=== PATIENT | female | born 1990 | race African-American/Black ===

== ENCOUNTER 2018-02-07 01:33 | Emergency (ER) | payer OTHER ==
[~2018-02-07 01:33] MED LIST: AMOX-362 PO; AMOX-559 PO; BENZ100C26 PO; CYCL10TA29 PO; DIA5 PO; IBUP800T37 PO; LOR5/325 PO; METR-1 PO; ONDA4TAB PO; OXYC-865 PO; TRAZ-163 PO
[2018-02-07] MEDS ORDERED: PREN-127 PO (01:45)
--- NOTE | 2018-02-07 01:46 | ER Report ---
History and Physical Time Seen By MD: 01:46 Hx. of Stated Complaint: PT'S PRIMARY COMPLAINT IS HEADACHE THAT STARTED YESTERDAY. PT 10 WEEKS . HPI/ROS CHIEF COMPLAINT: headache HISTORY OF PRESENT ILLNESS: This is a 28 year old female. She is having a headache, mainly in the forehead area and behind her eyes that goes to both temples. The headache started at noon and will not go away. She has taken Tylenol without relief. She has not taken anything else because she is 10 weeks . She has not been able to eat or drink alot today. Has nausea, but no vomiting. Has photophobia, but no other vision changes. No fever or chills. No shortness of breath or chest pain. No muscle aches. A little bit of congestion. No other illness. Has had some constipation, but no diarrhea. Normal urination without dysuria. No vaginal bleeding, leakage of fluid, or contractions/cramps. Does not have a history of headaches in the past. No swelling in the legs. No seizures. Allergies: Coded Allergies: No Known Drug Allergies (Unverified , 02/07/18) Home Meds Active Scripts Cyclobenzaprine Hcl (CYCLOBENZAPRINE HCL) 10 Mg Tablet, 10 MG PO Q8H Y for HEADACHE, #10 TAB 0 Refills Prov:SUKI GORDON MD 02/07/18 Hydrocodone Bit/Acetaminophen (HYDROCODON-ACETAMINOPHEN 5-325) 1 Each Tablet, 1 EACH PO Q4H Y for PAIN, #10 TAB 0 Refills Prov:SUKI GORDON MD 02/07/18 Ondansetron (ZOFRAN ODT) 4 Mg Tab.rapdis, 4 MG PO Q6H Y for NAUSEA/VOMITING, # 20 TAB.KAREY 0 Refills Prov:SUKI GORDON MD 02/07/18 Reported Medications Vits W-Ca,Fe,Fa(<1MG) ( VITAMINS) 1 Each Tablet, 1 EACH PO DAILY, TAB 02/07/18 Discontinued Reported Medications Trazodone Hcl (TRAZODONE HCL) 100 Mg Tablet, 200 MG PO QHS for Sleep, TAB 10/09/16 Discontinued Scripts Ondansetron (ZOFRAN ODT) 4 Mg Tab.rapdis, 4 MG PO Q6H Y for NAUSEA/VOMITING, # 20 TAB.KAREY 0 Refills Prov:SUKI GORDON MD 09/25/17 Hydrocodone Bit/Acetaminophen (HYDROCODON-ACETAMINOPHEN 5-325) 1 Each Tablet, 1 EACH PO Q4H Y for PAIN, #12 TAB 0 Refills Prov:SUKI GORDON MD 09/25/17 Hydrocodone Bit/Acetaminophen (HYDROCODON-ACETAMINOPHEN 5-325) 1 Each Tablet, 1 EACH PO Q4-6H for 3 Days, #8 TAB Prov:BRYNN HOLLINGSWORTH 05/15/17 Metronidazole (FLAGYL) 500 Mg Tablet, 500 MG PO TID for 7 Days, #21 TAB Prov:BRYNN HOLLINGSWORTH 05/15/17 Oxycodone Hcl/Acetaminophen (PERCOCET 5-325 MG TABLET) 1 Each Tablet, 1 EACH PO Q4-6H Y for mod, #18 TAB Prov:TAMIKO SINGH MD 10/09/16 Ibuprofen (IBUPROFEN) 800 Mg Tablet, 1 TAB PO Q6-8H Y for PAIN, #30 TAB Prov:TAMIKO SINGH MD 10/09/16 Past Medical/Surgical History History of in the past, history of left ankle surgery Reviewed Nurses Notes: Yes Hx Smoking: No Smoking Status: Never Smoker Exposure to Second Hand Smoke?: No Hx Substance Use Disorder: No Hx Alcohol Use: Yes (rare) Constitutional Vital Sign - Last 24 Hours 02/07/18 02/07/18 02/07/18 02/07/18 01:39 01:42 01:48 02:03 Temp 99.0 Pulse 11 110 106 Resp 16 B/P (MAP) 125/77 (93) 125/77 Pulse Ox 92 94 96 O2 Delivery Room Air 02/07/18 02/07/18 02/07/18 02/07/18 02:33 02:48 03:00 03:03 Pulse 112 108 103 B/P (MAP) 123/75 (91) Pulse Ox 94 94 93 02/07/18 02/07/18 02/07/18 02/07/18 03:08 03:23 03:30 03:38 Pulse 102 102 101 B/P (MAP) 111/71 (84) Pulse Ox 94 91 92 02/07/18 02/07/18 02/07/18 02/07/18 03:53 03:58 04:17 04:28 Pulse 102 97 B/P (MAP) 114/79 (91) Pulse Ox 91 92 92 02/07/18 02/07/18 02/07/18 02/07/18 04:30 04:43 04:48 05:00 Pulse 105 97 B/P (MAP) 115/64 (81) 105/71 (82) Pulse Ox 93 96 02/07/18 02/07/18 02/07/18 02/07/18 05:03 05:18 05:30 05:33 Pulse 100 102 98 B/P (MAP) 103/65 (78) Pulse Ox 91 91 91 02/07/18 02/07/18 02/07/18 02/07/18 05:48 06:00 06:03 06:30 Pulse 99 98 B/P (MAP) 100/63 (75) 96/56 (69) Pulse Ox 90 87 Physical Exam General Appearance: The patient is alert. Mild acute distress because of the headache. Non-toxic in appearance. Eyes: Pupils are equal, round. Reactive to light. No pallor, injection or icterus. Extraocular movements are intact. Photophobia. No nystagmus. ENT: Mucous membranes are moist. Normal oral mucosa. Posterior oropharynx is normal. Normal tympanic membranes and canals. Neck: Supple and non tender. Respiratory: Lungs are clear to auscultation. Cardiovascular: Regular rate and rhythm. No murmurs, gallops or rubs. Normal capillary refill. No edema. Gastrointestinal: Abdomen is soft and non tender. Nondistended. Normal active bowel sounds. Neurological: Alert and oriented x3. Cranial nerves with eye exam as noted above. No facial weakness, midline tongue, symmetric palate elevation, normal sensation. No focal neurologic deficits in the extremities. Skin: Warm and dry. Musculoskeletal: No tenderness in palpation of the back/spine. DIFFERENTIAL DIAGNOSIS: After history and physical exam, differential diagnosis was considered for headache including but not limited to subarachnoid hemorrhage , migraine headache, tension headache and infectious causes such as viral syndrome. Also consider related causes such as preeclampsia and HELLP. Medical Decision Making Data Points Result Diagram: 02/07/1821902/07/18 022 Laboratory Hematology Test 02/07/18 02:20 02/07/18 02:55 Red Blood Count 4.18 M/uL (4.17-5.56) Mean Corpuscular Volume 97.2 fL (80.0-96.0) Mean Corpuscular Hemoglobin 33.8 pg (26.0-33.0) Mean Corpuscular Hemoglobin Concent 34.7 g/dL (32.0-36.0) Red Cell Distribution Width 12.8 % (11.5-14.5) Mean Platelet Volume 9.1 fL (7.2-11.1) Neutrophils (%) (Auto) 71.3 % (39.4-72.5) Lymphocytes (%) (Auto) 20.6 % (17.6-49.6) Monocytes (%) (Auto) 7.2 % (4.1-12.4) Eosinophils (%) (Auto) 0.4 % (0.4-6.7) Basophils (%) (Auto) 0.5 % (0.3-1.4) Nucleated RBC Relative Count (auto) 0.0 /100WBC Neutrophils # (Auto) 6.9 K/uL (2.0-7.4) Lymphocytes # (Auto) 2.0 K/uL (1.3-3.6) Monocytes # (Auto) 0.7 K/uL (0.3-1.0) Eosinophils # (Auto) 0.0 K/uL (0.0-0.5) Basophils # (Auto) 0.0 K/uL (0.0-0.1) Nucleated RBC Absolute Count (auto) 0.00 K/uL Erythrocyte Sedimentation Rate 16 mm/HOUR (0-20) Sodium Level 133 mmol/L (137-145) Potassium Level 3.9 mmol/L (3.5-5.0) Chloride Level 101 mmol/L (98-107) Carbon Dioxide Level 21 mmol/L (22-31) Blood Urea Nitrogen 7 mg/dl (7-18) Creatinine 0.70 mg/dl (0.52-1.04) Glomerular Filtration Rate Calc > 60.0 Random Glucose 101 mg/dl (75-110) Calcium Level 9.9 mg/dl (8.4-10.2) Total Bilirubin 0.4 mg/dl (0.2-1.3) Aspartate Amino Transf (AST/SGOT) 22 U/L (0-35) Alanine Aminotransferase (ALT/SGPT) 31 U/L (0-56) Alkaline Phosphatase 87 U/L (0-126) Total Protein 7.5 gm/dl (6.3-8.2) Albumin 4.0 g/dl (3.5-5.0) Urine Color Yellow Urine Clarity Slightly-cloudy Urine pH 6.0 pH (4.8-9.5) Urine Specific Gary 1.019 Urine Protein Negative mg/dL (NEGATIVE) Urine Glucose (UA) Negative mg/dL (NEGATIVE) Urine Ketones Negative mg/dL (NEGATIVE) Urine Blood Negative (NEGATIVE) Urine Nitrite Negative (NEGATIVE) Urine Bilirubin Negative (NEGATIVE) Urine Urobilinogen 2.0 mg/dL (0.2-1.9) Urine Leukocyte Esterase Moderate (NEGATIVE) Urine RBC 1 /HPF (0-2/HPF) Urine WBC 1 /HPF (0-5/HPF) Urine Squamous Epithelial Cells Many /LPF (</=FEW) Urine Transitional Epithelial Cells Few /LPF (NONE-FEW) Urine Bacteria Negative /HPF (NONE-FEW) Urine Mucus None /HPF (NONE-FEW) Chemistry Test 02/07/18 02:20 02/07/18 02:55 White Blood Count 9.6 k/uL (4.5-11.0) Red Blood Count 4.18 M/uL (4.17-5.56) Hemoglobin 14.1 g/dL (12.0-16.0) Hematocrit 40.7 % (34.0-47.0) Mean Corpuscular Volume 97.2 fL (80.0-96.0) Mean Corpuscular Hemoglobin 33.8 pg (26.0-33.0) Mean Corpuscular Hemoglobin Concent 34.7 g/dL (32.0-36.0) Red Cell Distribution Width 12.8 % (11.5-14.5) Platelet Count 266 K/uL (150-450) Mean Platelet Volume 9.1 fL (7.2-11.1) Neutrophils (%) (Auto) 71.3 % (39.4-72.5) Lymphocytes (%) (Auto) 20.6 % (17.6-49.6) Monocytes (%) (Auto) 7.2 % (4.1-12.4) Eosinophils (%) (Auto) 0.4 % (0.4-6.7) Basophils (%) (Auto) 0.5 % (0.3-1.4) Nucleated RBC Relative Count (auto) 0.0 /100WBC Neutrophils # (Auto) 6.9 K/uL (2.0-7.4) Lymphocytes # (Auto) 2.0 K/uL (1.3-3.6) Monocytes # (Auto) 0.7 K/uL (0.3-1.0) Eosinophils # (Auto) 0.0 K/uL (0.0-0.5) Basophils # (Auto) 0.0 K/uL (0.0-0.1) Nucleated RBC Absolute Count (auto) 0.00 K/uL Erythrocyte Sedimentation Rate 16 mm/HOUR (0-20) Glomerular Filtration Rate Calc > 60.0 Calcium Level 9.9 mg/dl (8.4-10.2) Total Bilirubin 0.4 mg/dl (0.2-1.3) Aspartate Amino Transf (AST/SGOT) 22 U/L (0-35) Alanine Aminotransferase (ALT/SGPT) 31 U/L (0-56) Alkaline Phosphatase 87 U/L (0-126) Total Protein 7.5 gm/dl (6.3-8.2) Albumin 4.0 g/dl (3.5-5.0) Urine Color Yellow Urine Clarity Slightly-cloudy Urine pH 6.0 pH (4.8-9.5) Urine Specific Gary 1.019 Urine Protein Negative mg/dL (NEGATIVE) Urine Glucose (UA) Negative mg/dL (NEGATIVE) Urine Ketones Negative mg/dL (NEGATIVE) Urine Blood Negative (NEGATIVE) Urine Nitrite Negative (NEGATIVE) Urine Bilirubin Negative (NEGATIVE) Urine Urobilinogen 2.0 mg/dL (0.2-1.9) Urine Leukocyte Esterase Moderate (NEGATIVE) Urine RBC 1 /HPF (0-2/HPF) Urine WBC 1 /HPF (0-5/HPF) Urine Squamous Epithelial Cells Many /LPF (</=FEW) Urine Transitional Epithelial Cells Few /LPF (NONE-FEW) Urine Bacteria Negative /HPF (NONE-FEW) Urine Mucus None /HPF (NONE-FEW) Urinalysis Test 02/07/18 02:55 Urine Color Yellow Urine Clarity Slightly-cloudy Urine pH 6.0 pH (4.8-9.5) Urine Specific Gary 1.019 Urine Protein Negative mg/dL (NEGATIVE) Urine Glucose (UA) Negative mg/dL (NEGATIVE) Urine Ketones Negative mg/dL (NEGATIVE) Urine Blood Negative (NEGATIVE) Urine Nitrite Negative (NEGATIVE) Urine Bilirubin Negative (NEGATIVE) Urine Urobilinogen 2.0 mg/dL (0.2-1.9) Urine Leukocyte Esterase Moderate (NEGATIVE) Urine RBC 1 /HPF (0-2/HPF) Urine WBC 1 /HPF (0-5/HPF) Urine Squamous Epithelial Cells Many /LPF (</=FEW) Urine Transitional Epithelial Cells Few /LPF (NONE-FEW) Urine Bacteria Negative /HPF (NONE-FEW) Urine Mucus None /HPF (NONE-FEW) EKG/Imaging Imaging EXAMINATION: HEAD W/O CONTRAST CLINICAL INDICATION: Headache x1 day with nausea. COMPARISON: No priors TECHNIQUE: Contiguous axial CT images of the brain were obtained without IV contrast. Sagittal and coronal reformatted images were also performed. One of the following dose optimization techniques was utilized in the performance of this exam: Automated exposure control; adjustment of the mA and/ or kV according to the patient's size; or use of an iterative reconstruction technique. Specific details can be referenced in the facility's radiology CT exam operational policy. RESULT: BRAIN: The ventricles are symmetric and normal in size. The brain parenchyma appears normal. The hewitt-white matter differentiation is preserved and the basilar cisterns are maintained. The cerebellum and brainstem appear normal. There is no mass, acute infarct, hemorrhage or shift of midline. VISUALIZED PARANASAL SINUSES & MASTOIDS: Well aerated. SKULL BASE & CRANIUM: Visualized osseous structures are intact. IMPRESSION: Negative CT of the brain without contrast. Report Dictated By: Jorge Guardado MD at 02/07/2018 4:21 AM ED Course/Re-evaluation Clinical Indication for ER IV: Hydration, IV Access ED Course Labs were obtained. CBC and CMP were normal other than slightly low sodium and bicarb level. ESR was negative at 16. Unable to obtain a urine sample initially. Gave a liter of normal saline, and based on 10 out of 10 pain, gave Phenergan 12.5mg, Benadryl 25mg, and Morphine 2mg IV. Minimal relief down to a 9 on a 1-10 scale. Gave a second liter of normal saline and tried 2 grams of magnesium sulfate to try to break the headache. No improvement. Urinalysis was available and shows no protein, and changes that appear to be contamination. Culture will be ordered. CT scan of the head was done and negative for acute problem. Gave Lortab 5/325 and Flexeril 10mg oral doses and the headache decreased to an 8 on a 1-10 scale. Discussed the results of all the testing with the patient. She was able to sleep for a short time. We talked about calling the [employer] application analyst to discuss further and look at further studies such as labs or lumbar puncture. She has an appointment with Dr. Yu today and after talking about options, she would like to go home now and see him later. I let her know that we had ruled out quite a few problems that could be causing her headache, but did not have the ability at this time to say why she is having the headache. We will provide some Lortab, Zofran, and Flexeril to use for now. If she worsens prior to seeing Dr. Yu she can return here for further evaluation. She will let Dr. Yu know she was here so he can review the imaging, labs, and treatment that was given. Decision to Disposition Date: Feb 07, 2018 Decision to Disposition Time: 06:09 Depart Departure Latest Vital Signs Vital Signs Date Time Temp Pulse Resp B/P (MAP) Pulse Ox O2 Delivery O2 Flow Rate FiO2 02/07/18 06:30 96/56 (69) 02/07/18 06:03 98 87 02/07/18 01:42 99.0 16 Room Air Impression: Primary Impression: Acute headache Additional Impression: First trimester Condition: Improved Disposition: HOME OR SELF-CARE Referrals: NICOLE YU MD (PCP) New Scripts Cyclobenzaprine Hcl (CYCLOBENZAPRINE HCL) 10 Mg Tablet 10 MG PO Q8H Y for HEADACHE, #10 TAB 0 Refills Prov: SUKI GORDON MD 02/07/18 Hydrocodone Bit/Acetaminophen (HYDROCODON-ACETAMINOPHEN 5-325) 1 Each Tablet 1 EACH PO Q4H Y for PAIN, #10 TAB 0 Refills Prov: SUKI GORDON MD 02/07/18 Ondansetron (ZOFRAN ODT) 4 Mg Tab.rapdis 4 MG PO Q6H Y for NAUSEA/VOMITING, #20 TAB.KAREY 0 Refills Prov: SUKI GORDON MD 02/07/18 Patient Instructions: Acute Headache (ED) Additional Instructions: Try to get some sleep this morning. The Lortab and Flexeril seemed to give you some relief. We will provide some take home medications and prescriptions for you for these as well as some Zofran for nausea. Make sure to follow-up with Dr. Yu as planned today. Let him know you were here in the ER so he can look at the labs and imaging and treatment that we provided. Lortab 5/325, one every 4 hours as needed for pain. Zofran 4mg, one every 6 hours as needed for nausea. Flexeril 10mg, one every 8 hours as needed for headache. Problem Qualifiers Primary Impression: Acute headache Headache type: unspecified Intractability: intractable Qualified Codes: R51 - Headache SUKI GORDON MD Feb 07, 2018 01:46
[2018-02-07] MEDS ORDERED: PROMETHAZINE 25 MG/ML 1 ML AMP IVP ONE (01:55)
[2018-02-07] MEDS ORDERED: NS(*) 0.9% 1000 ML BAG 1,000 ML IV ONE ×2 (01:55→03:30)
[2018-02-07] MEDS ORDERED: MORPHINE 2 MG/ML SYR IVP ONE (01:55)
[2018-02-07] MEDS ORDERED: diphenhydrAMINE 50 MG/ML VIAL IVP ONE (01:55)
[2018-02-07 02:27] LABS: PLATELET COUNT, AUTOMATED 266 K/uL (150-450)
[2018-02-07] MEDS ORDERED: MAGNESIUM SUL* 2 GM/50 ML IVPB 50 ML IVPB ONE (03:30)
--- NOTE | 2018-02-07 04:26 | RADIOLOGY IMAGING REPORT ---
[place] [facility] [place] Quiñonez : 1990 MR: [id number] V: [id number] EXAM DATE: ORDERING PHYSICIAN: SUKI GORDON TECHNOLOGIST: Location: [facility] Patient: Kenneth Quiñonez : 1990 Visit/Account:[id number] Date of Sevice: 02/07/2018 EXAMINATION: HEAD W/O CONTRAST CLINICAL INDICATION: Headache x1 day with nausea. COMPARISON: No priors TECHNIQUE: Contiguous axial CT images of the brain were obtained without IV contrast. Sagittal and co davion reformatted images were also performed. One of the following dose optimization techniques was utilized in the performance of this exam: Autom ated exposure control; adjustment of the mA and/or kV according to the patient's size; or use of an i terative reconstruction technique. Specific details can be referenced in the facility's radiology C T exam operational policy. RESULT: BRAIN: The ventricles are symmetric and normal in size. The brain parenchyma appears normal. The gra y-white matter differentiation is preserved and the basilar cisterns are maintained. The cerebellum a nd brainstem appear normal. There is no mass, acute infarct, hemorrhage or shift of midline. VISUALIZED PARANASAL SINUSES & MASTOIDS: Well aerated. SKULL BASE & CRANIUM: Visualized osseous structures are intact. IMPRESSION: Negative CT of the brain without contrast. Report Dictated By: Jorge Guardado MD at 02/07/2018 4:21 AM Report E-Signed By: Jorge Guardado MD at 02/07/2018 4:22 AM WSN:[id number]
[2018-02-07] MEDS ORDERED: APAP/HYDROCODONE 325/10 TAB PO ONE (04:45)
[2018-02-07] MEDS ORDERED: CYCLOBENZAPRINE HCL 10 MG TAB PO ONE (04:45)
[2018-02-07] MEDS ORDERED: CYCLOBENZAPRINE HCL 10 MG TH PO ONE (06:10)
[2018-02-07] MEDS ORDERED: ACET/HYDROC 5/325MG TH ER ONLY 2 TAB/BOTTLE PO ONE (06:10)
[2018-02-07] MEDS ORDERED: CYCL10TA29 PO (06:12)
[2018-02-07] MEDS ORDERED: LOR5/325 PO (06:12)
[2018-02-07] MEDS ORDERED: ONDA4TAB PO (06:12)
[2018-02-07] MEDS ORDERED: ONDANSETRON 4 MG ODT TH SL ONE (06:15)
[2018-02-07 06:30] VITALS: BP 96/56
== END 2018-02-07 06:55 | disposition home or self-care (01) ==
LOC: ER 01:49
DX: O26.891 Other specified pregnancy related conditions, first trimester (principal); Z3A.10 10 weeks gestation of pregnancy; R51 Headache; K59.00 Constipation, unspecified; R11.0 Nausea
CPT/HCPCS: 70450; 81001; 85025; 85651; 87088; 96361; 96365; 96375; 99284; J1200; J2270; J2550; J3475; J7030; S0119; 82040; 82247; 82310; 82374; 82435; 82565; 82947; 84075; 84132; 84155; 84295; 84450; 84460; 84520

== ENCOUNTER 2018-07-13 22:55 | Observation (INO) | payer MEDICAID ==
[~2018-07-13 22:55] MED LIST changes: +PREN-127 PO; -TRAZ-163 PO; +TRAZ100T31 PO
[2018-07-13] MEDS ORDERED: LR(*) 1000 ML BAG 1,000 ML IV PRN (22:58)
[2018-07-13] MEDS ORDERED: PROMETHAZINE 25 MG/ML 1 ML AMP IM ONE (23:45)
[2018-07-13] MEDS ORDERED: ACETA/BUTAL/CAFF 325/50/40 TAB PO ONE (23:45)
[2018-07-14] MEDS ORDERED: CALCIUM CARBONATE 500 MG CHEW PO PRN (00:05)
[2018-07-14] MEDS ORDERED: MORPHINE 10 MG/ML SYR IM ONE (03:15)
[2018-07-14] MEDS ORDERED: APAP/HYDROCODONE 325/5 TAB PO ONE (06:45)
--- NOTE | 2018-07-14 07:53 | History & Physical ---
History of Present Illness Chief Complaint Headache and constipation History of Present Illness 28yo at 33wks presented last night with headache. She is improved after some sleep and Morphine, but her primary concern now is severe constipation. It has been one week since she had a BM and when she does it is "rober." She has not used any bowel regimen issues. History Allergies: Coded Allergies: No Known Drug Allergies (Unverified , 02/07/18) Med Rec Home Meds Active Scripts Cyclobenzaprine Hcl (CYCLOBENZAPRINE HCL) 10 Mg Tablet, 10 MG PO Q8H Y for HEADACHE, #10 TAB 0 Refills Prov:SUKI GORDON MD 02/07/18 Hydrocodone Bit/Acetaminophen (HYDROCODON-ACETAMINOPHEN 5-325) 1 Each Tablet, 1 EACH PO Q4H Y for PAIN, #10 TAB 0 Refills Prov:SUKI GORDON MD 02/07/18 Ondansetron (ZOFRAN ODT) 4 Mg Tab.rapdis, 4 MG PO Q6H Y for NAUSEA/VOMITING, # 20 TAB.KAREY 0 Refills Prov:SUKI GORDON MD 02/07/18 Reported Medications Vits W-Ca,Fe,Fa(<1MG) ( VITAMINS) 1 Each Tablet, 1 EACH PO DAILY, TAB 02/07/18 Review of Systems Constitutional: No Fever Neurological: No Syncope Eyes: No Vision Change Cardiovascular: No Chest Pain Respiratory: No Shortness of Breath Gastrointestinal: No Nausea, No Vomiting, No Diarrhea, Constipation Genitourinary: No Dysuria Musculoskeletal: No Pain Psychiatric: No Depression, No Anxiety Exam General Exam Vital Signs Vs reviewed General Apperance: Alert/Awake/No Acute Distress Neuro: No Gross deficits Eyes: Normal Extraocular Movement & Vison Cardiovascular: Regular Rate and Rhythm Respiratory: No Respiratory Distress Abdomen: Gravid - Non-Tender Musculoskeletal: No Weakness/Pain Extremities: No Cyanosis,Clubbing or Edema Integumentary: Skin Intact without Lesions or Rash Psychological: Alert & Oriented X3, Appropriate Mood & Affect Fetus FHT Category: I Assessment and Plan Problems: (1) Constipation during Assessment & Plan: I suspect her primary concerns are related to severe constipation and impaction. Will initiate fleet's enemas and IVF for hydration. Start Colace and Milk of Mag also. High fiber diet. (2) Headache in Assessment & Plan: No e/o preeclampsia or migraines. No other neurologic findings. She was given meds, but I think dehydration is the most important to improve. Continue to evaluate. (3) 33 weeks gestation of Problem Qualifiers (1) Constipation during : Trimester: third trimester Qualified Codes: O99.613 - Diseases of the digestive system complicating , third trimester; K59.00 - Constipation , unspecified (2) Headache in : Trimester: third trimester Qualified Codes: O26.893 - Other specified related conditions, third trimester; R51 - Headache JERMAN GLASER MD Jul 14, 2018 07:53
[2018-07-14] MEDS ORDERED: MAGNESIUM HYDROXIDE* 30ML UDCP PO ONE (07:55)
[2018-07-14] MEDS ORDERED: DLR(*) 1000 ML BAG 1,000 ML IV ONE (07:55)
[2018-07-14] MEDS ORDERED: DOCUSATE SODIUM 100 MG CAP PO SCH (09:00)
[2018-07-14] MEDS ORDERED: ONDANSETRON 4 MG/2 ML VIAL IVP ONE (10:50)
[2018-07-14] MEDS ORDERED: MAGNESIUM CITRATE 300 ML BTL PO ONE (11:15)
== END 2018-07-14 13:11 | disposition home or self-care (01) ==
LOC: INTOOBSV 22:55 → OB 22:55
PROVIDERS: ADMIT Obstetrics & Gynecology; ATTEND Obstetrics & Gynecology
DX: O99.613 Diseases of the digestive system complicating pregnancy, third trimester (principal); O26.893 Other specified pregnancy related conditions, third trimester; Z3A.33 33 weeks gestation of pregnancy
CPT/HCPCS: G0378; G0379; J2270; J2405; J2550

== ENCOUNTER 2018-08-07 19:51 | Outpatient (CLI) | payer MEDICAID ==
[~2018-08-07] VITALS: Ht 162.6 cm; Wt 102.1 kg
[2018-08-07] MEDS ORDERED: DLR(*) 1000 ML BAG 1,000 ML IV PRN (19:53)
[2018-08-07 20:20] VITALS: BP 136/71; Ht 162.6 cm; Wt 102.1 kg
[2018-08-07] MEDS ORDERED: ONDANSETRON 4 MG/2 ML VIAL IVP PRN (20:25)
[2018-08-07] MEDS ORDERED: ACETA/BUTAL/CAFF 325/50/40 TAB PO ONE (20:25)
[2018-08-07 20:41] LABS: PLATELET COUNT, AUTOMATED 224 K/uL (150-450)
[2018-08-07] MEDS ORDERED: ESCI20TA38 PO (20:51)
[2018-08-07] MEDS ORDERED: HYDR50CA47 PO (20:51)
[2018-08-07] MEDS ORDERED: TRAZ50TA34 PO (20:51)
[2018-08-07] MEDS ORDERED: fentaNYL CITR 100 MCG/2 ML AMP IVP ONE (21:55)
[2018-08-07] MEDS ORDERED: PROMETHAZINE 25 MG/ML 1 ML AMP IVP ONE (21:55)
[2018-08-07] MEDS ORDERED: diphenhydrAMINE 25 MG CAP PO PRN (21:55)
[2018-08-07] MEDS: LR(*) 1000 ML BAG 1,000 ML IV PRN ×2 (21:59→22:30)
[2018-08-07] MEDS ORDERED: ACETAMINOPHEN 500 MG TAB PO ONE (23:15)
[2018-08-08] MEDS ORDERED: ONDANSETRON 4 MG ODT TABDP SL PRN (01:00)
== END 2018-08-08 01:05 | disposition home or self-care (01) ==
LOC: OB 19:51 → UNDOADMOB 19:51 → OB 19:51 → L&D 19:51 → UNDODISOB 08-08 01:05 → L&D 08-08 01:05 → EDSTATUS 08-08 14:38
PROVIDERS: ATTEND Student in an Organized Health Care Education/Training Program
DX: O26.893 Other specified pregnancy related conditions, third trimester (principal); Z3A.37 37 weeks gestation of pregnancy
CPT/HCPCS: 81001; 82570; 83615; 84156; 85025; G0463; J2405; J2550; J3010; J7120; 82040; 82247; 82310; 82374; 82435; 82565; 82947; 84075; 84132; 84155; 84295; 84450; 84460; 84520; 99213

== ENCOUNTER → 2018-08-12 | Outpatient (CLI) | payer SELFPAY ==
[2018-08-07 20:20] VITALS: BMI 38.6
[~2018-08-12] MED LIST changes: +ESCI20TA38 PO; +HYDR50CA47 PO; +TRAZ50TA34 PO
--- NOTE | 2018-08-12 12:46 | RADIOLOGY IMAGING REPORT ---
FACILITY: PATIENT NAME: Kenneth Quiñonez : 1990 MR: [id number] V: [id number] EXAM DATE: ORDERING PHYSICIAN: ADÁN LOU TECHNOLOGIST: Location: [facility] Patient: Kenneth Quiñonez : 1990 Visit/Account:[id number] Date of Sevice: 08/12/2018 EXAMINATION: Bilateral lower extremity deep vein duplex Doppler ultrasound HISTORY: Swollen left leg. COMPARISON: None. FINDINGS: Grayscale, duplex and color Doppler interrogation of the bilateral lower extremity deep veins from co mmon femoral vein to proximal calf was completed. The greater saphenous vein in the right and left pr oximal thigh was evaluated using similar technique. Right lower extremity: Common femoral vein: Negative. Femoral vein: Negative. Deep femoral vein: Negative. Popliteal vein: Negative. Visualized deep calf veins: Negative. Greater saphenous vein in the proximal thigh: Negative. Popliteal fossa: Negative. Waveforms: Normal respiratory phasicity. Left lower extremity: Common femoral vein: Negative. Femoral vein: Negative. Deep femoral vein: Negative. Popliteal vein: Negative. Visualized deep calf veins: Negative. Greater saphenous vein in the proximal thigh: Negative. Popliteal fossa: Negative. Waveforms: Normal respiratory phasicity. Other findings: Probable subcutaneous lipoma in the left mid thigh measuring 4.2 x 2.5 x 3.7 cm. IMPRESSION: No evidence of deep vein thrombosis of either lower extremity. Probable subcutaneous lipoma in the left mid thigh measuring 4.2 x 2.5 x 3.7 cm. Report Dictated By: Alon Mcduffie MD at 08/12/2018 12:39 PM Report E-Signed By: Alon Mcduffie MD at 08/12/2018 12:42 PM WSN:[id number]
== END ==
LOC: US 10:56
PROVIDERS: ATTEND Physician Assistant
DX: R22.43 Localized swelling, mass and lump, lower limb, bilateral (principal); Z3A.37 37 weeks gestation of pregnancy
CPT/HCPCS: 93970

== ENCOUNTER 2018-08-14 21:24 | Outpatient (CLI) | payer SELFPAY ==
[2018-08-07 20:20] VITALS: BMI 38.6
[2018-08-14 22:00] VITALS: BP 144/81
[2018-08-14] MEDS ORDERED: ACETAMINOPHEN 500 MG TAB PO ONE (22:25)
--- NOTE | 2018-08-14 23:32 | RADIOLOGY IMAGING REPORT ---
FACILITY: [facility] PATIENT NAME: Kenneth Quiñonez : 1990 MR: [id number] V: [id number] EXAM DATE: [id number] ORDERING PHYSICIAN: RAMIREZ PETERS TECHNOLOGIST: [place] [facility] [place] Quiñonez : 1990 Visit/Account:[id number] Date of Sevice: 08/14/2018 EXAMINATION: LEFT LOWER EXTREMITY DOPPLER VENOUS ULTRASOUND DATE: 08/14/2018 10:33 PM INDICATION: Left lower extremity pain and swelling. 37 weeks . TECHNIQUE: Grayscale, color and pulsed Doppler ultrasound was performed of the left lower extremity v eins to evaluate for deep venous thrombosis. COMPARISON: 08/12/2018. FINDINGS: The left common femoral, superficial femoral, and popliteal veins are compressible with normal flow o n color Doppler and preserved venous waveform variation. There is also normal color Doppler flow in t he profunda femoris and greater saphenous veins. The left posterior tibial , anterior tibial and peroneal veins have patent color Doppler flow. The contralateral right common femoral vein demonstrates normal flow on color Doppler and respiratory variations on pulsed Doppler. IMPRESSION: No evidence of deep venous thrombosis in the left lower extremity. Report Dictated By: Eugenio Mills MD at 08/14/2018 11:26 PM Report E-Signed By: Eugenio Mills MD at 08/14/2018 11:29 PM WSN:[id number]
== END 2018-08-15 01:30 | disposition home or self-care (01) ==
LOC: L&D 21:24 → OB 21:24 → UNDOADMOB 21:24 → OB 21:24 → UNDODISOB 08-15 01:30 → L&D 08-15 01:30 → EDSTATUS 08-15 10:47
PROVIDERS: ATTEND Obstetrics & Gynecology
DX: O26.893 Other specified pregnancy related conditions, third trimester (principal); Z3A.37 37 weeks gestation of pregnancy
CPT/HCPCS: 99213

== ENCOUNTER 2018-08-15 21:18 | Outpatient (CLI) | payer SELFPAY ==
[~2018-08-15] VITALS: Ht 162.6 cm; Wt 86.2 kg
[2018-08-15] MEDS ORDERED: LR(*) 1000 ML BAG 1,000 ML IV PRN (21:23)
[2018-08-15] MEDS ORDERED: D5W(*) 1000 ML BAG 1,000 ML IV ONE (22:00)
[2018-08-15] MEDS ORDERED: ONDANSETRON 4 MG ODT TH SL ONE (22:00)
[2018-08-15] MEDS ORDERED: ONDANSETRON 4 MG/2 ML VIAL IVP PRN (22:00)
[2018-08-15] MEDS ORDERED: ACETAMINOPHEN 325 MG TAB PO PRN (22:15)
[2018-08-15] MEDS ORDERED: LIDOCAINE/SOD BICARB 8.4% SYR ONE (22:38)
[2018-08-15] MEDS ORDERED: DLR(*) 1000 ML BAG 1,000 ML IV SCH (22:46)
[2018-08-16 04:34] VITALS: BP 136/81; BMI 32.6
[2018-08-19 20:30] VITALS: Ht 162.6 cm; Wt 86.2 kg
== END 2018-08-16 01:23 | disposition home or self-care (01) ==
LOC: OB 21:18 → L&D 21:18 → OB 21:18 → UNDOADMOB 21:18 → UNDODISOB 08-16 01:23 → L&D 08-16 01:23 → EDSTATUS 08-20 06:34
PROVIDERS: ATTEND Obstetrics & Gynecology
DX: O47.1 False labor at or after 37 completed weeks of gestation (principal); Z3A.37 37 weeks gestation of pregnancy
CPT/HCPCS: 36415; 59025; 85027; 99213; J2405; 82040; 82247; 82310; 82374; 82435; 82565; 82947; 84075; 84132; 84155; 84295; 84450; 84460; 84520; G0378; G0379

== ENCOUNTER 2018-08-19 19:54 | Outpatient (CLI) | payer MEDICAID ==
[~2018-08-19] VITALS: Ht 160 cm; Wt 103.9 kg
[2018-08-19] MEDS ORDERED: DLR(*) 1000 ML BAG 1,000 ML IV PRN (19:57)
[2018-08-19 20:30] VITALS: BP 143/82; Ht 160 cm; Wt 103.9 kg
[2018-08-19 20:49] LABS: PLATELET COUNT, AUTOMATED 241 K/uL (150-450)
[2018-08-19] MEDS ORDERED: ACETA/BUTAL/CAFF 325/50/40 TAB PO ONE ×2 (20:55→23:20)
[2018-08-19] MEDS: LR(*) 1000 ML BAG 1,000 ML IV PRN ×2 (21:02→21:44)
[2018-08-21] MEDS ORDERED: PROM-110 PO (06:06)
[2018-08-21] MEDS ORDERED: IBUP800T37 PO (08:54)
[2018-08-21] MEDS ORDERED: OXYC-865 PO (08:54)
== END 2018-08-20 00:25 | disposition home or self-care (01) ==
LOC: UNDOADMOB 19:54 → OB 19:54 → L&D 19:54 → OB 19:54 → L&D 08-20 00:25 → UNDODISOB 08-20 00:25 → EDSTATUS 08-20 11:20
PROVIDERS: ATTEND Student in an Organized Health Care Education/Training Program
DX: O26.893 Other specified pregnancy related conditions, third trimester (principal); R51 Headache; Z3A.38 38 weeks gestation of pregnancy
CPT/HCPCS: 36415; 81001; 82570; 83615; 84156; 85025; 86850; 86900; 86901; G0463; J7120; 82040; 82247; 82310; 82374; 82435; 82565; 82947; 84075; 84132; 84155; 84295; 84450; 84460; 84520; 99213

== ENCOUNTER 2018-08-21 05:20 | Inpatient (IN) | payer MEDICAID ==
[~2018-08-21] VITALS: Ht 160 cm; Wt 103.9 kg
[2018-08-21] VITALS (13 sets, daily range): BP systolic 118–144; BP diastolic 62–96; Ht 160 cm; Wt 103.9 kg
[2018-08-21] MEDS ORDERED: LR(*) 1000 ML BAG 1,000 ML IV SCH (05:22)
[2018-08-21] MEDS ORDERED: DLR(*) 1000 ML BAG 1,000 ML IV PRN (05:22)
[2018-08-21] MEDS ORDERED: cefOXitin/DEX(*) 2GM/50ML PREM 50 ML IVPB ONE (05:25)
[2018-08-21] MEDS ORDERED: FAMOTIDINE 20 MG/50 ML PREMIX IVPB ONE (05:25)
[2018-08-21] MEDS ORDERED: LIDOCAINE/SOD BICARB 8.4% SYR SC PRN ×2 (05:25→23:25)
[2018-08-21] MEDS ORDERED: METOCLOPRAMIDE 10 MG/2 ML SDV IVP ONE (05:25)
[2018-08-21] MEDS ORDERED: LR(*) 1000 ML BAG 2,000 ML ONE (05:31)
[2018-08-21] MEDS ORDERED: LIDOCAINE/SOD BICARB 8.4% SYR ONE ×2 (05:31→23:10)
[2018-08-21] MEDS ORDERED: PROM-110 PO (06:06)
[2018-08-21 06:23] LABS: PLATELET COUNT, AUTOMATED 232 K/uL (150-450)
[2018-08-21] MEDS ORDERED: ONDANSETRON 4 MG/2 ML VIAL IVP ONE ×2 (06:25→06:30)
[2018-08-21] MEDS ORDERED: diphenhydrAMINE 25 MG CAP PO PRN (06:30)
[2018-08-21] MEDS ORDERED: NALOXONE HCL 0.4 MG/ML VIAL IV PRN (06:30)
[2018-08-21] MEDS ORDERED: NALBUPHINE HCL 10 MG/ML AMP IVP PRN ×2 (06:30→09:15)
[2018-08-21] MEDS ORDERED: ONDANSETRON 4 MG/2 ML VIAL ONE (06:39)
[2018-08-21] MEDS ORDERED: OXYTOCIN 10 UNIT/ML SDV ONE (06:40)
[2018-08-21] MEDS ORDERED: MORPHINE PF 5 MG/10 ML AMP ONE (06:40)
[2018-08-21] MEDS ORDERED: fentaNYL CITR 100 MCG/2 ML AMP ONE (06:40)
--- NOTE | 2018-08-21 06:44 | Anesthesia OB Pre-Anes Eval ---
History of Present Illness Anesthesia Start Date: Aug 21, 2018 Anesthesia Start Time: 07:07 OB Anesthesia Diagnosis: repeat c/section Current Complication: obesity EDC: Aug 31, 2018 : 2 Para: 2 Pain Ratin Result Diagram: 08/21/18 0600 Height (Inches): 63.00 Weight (Pounds): 229 BMI Calculated: 40.56 Past Medical History Surgical History: Previous Anesthesia: epidural Hx Anesthesia Reactions: No Hx Family Anesthesia Reaction: No Past Complications: obesity Home Meds Active Scripts Ibuprofen (IBUPROFEN) 800 Mg Tablet, 1 TAB PO Q8H for PAIN, #30 TAB Prov:ADÁN LOU 08/21/18 Oxycodone Hcl/Acetaminophen (PERCOCET 5-325 MG TABLET) 1 Each Tablet, 1 EACH PO Q4-6H for PAIN, #20 TAB Prov:ADÁN LOU 08/21/18 Ondansetron (ZOFRAN ODT) 4 Mg Tab.rapdis, 4 MG PO Q6H PRN for NAUSEA/VOMITING, #20 TAB.KAREY 0 Refills Prov:SUKI GORDON MD 02/07/18 Reported Medications Promethazine Hcl (PROMETHAZINE HCL) 25 Mg Tablet, 25 MG PO Q8H, TAB 08/21/18 Trazodone Hcl (TRAZODONE HCL) 50 Mg Tablet, 50 MG PO QHS 08/07/18 Escitalopram Oxalate (LEXAPRO) 20 Mg Tablet, 10 MG PO QDAY, TAB 08/07/18 Hydroxyzine Pamoate (VISTARIL) 50 Mg Capsule, 50 MG PO, CAPSULE 08/07/18 Vits W-Ca,Fe,Fa(<1MG) ( VITAMINS) 1 Each Tablet, 1 EACH PO DAILY, TAB 02/07/18 Discontinued Scripts Cyclobenzaprine Hcl (CYCLOBENZAPRINE HCL) 10 Mg Tablet, 10 MG PO Q8H PRN for HEADACHE, #10 TAB 0 Refills Prov:SUKI GORDON MD 02/07/18 Allergies: Coded Allergies: No Known Drug Allergies (Unverified , 02/07/18) Anesthesia OB ROS Neurological: No migraines/headaches, No seizures, No neuropathy, No other ENT: Denies Tooth caps, Denies Loose teeth, Denies Chipped teeth, Denies Dentures, Denies Bridges, Denies Retainers, Denies Veneers, Denies Implants, Denies Tongue ring, Denies Other Pulmonary: No asthma, No smoker (pks/day/yrs), No other Airway Class: ll Cardiovascular ROS: No edema, No arrhythmia, No other GI ROS: NPO, nausea Last Solids Date: Aug 20, 2018 ROS: No Herpes, No STD(s), No Liver Disease, No Renal Disease, No Other Endocrine ROS: No diabetes, No gestational diabetes, No thyroid disorder, No other Musculoskeletal ROS: No low back pain, No low back injury, No scoliosis, No other ASA Classification: 2 Assessment and Plan Anesthesia Plan: SAB Anesthesia Stop Day: Aug 21, 2018 Anesthesia Stop Time: 08:54 MIN CROSS CRNA Aug 21, 2018 06:44
--- NOTE | 2018-08-21 07:04 | History & Physical ---
History of Present Illness Age of Patient: 28 : 2 Para or TPAL: 1 EDC per LMP: Aug 31, 2018 Estimated Gestational Age: 37 Chief Complaint History of Present Illness Presents for scheduled . She was scheduled for next week but recently having elevated BP with normal labs and normal protein. Delivery moved up for this indication. has been uncomplicated since. Past Medical, Surgical, Family and Obstetric Histories reviewed. Please see ACOG chart. History Allergies: Coded Allergies: No Known Drug Allergies (Unverified , 02/07/18) Med Rec Home Meds Active Scripts Ondansetron (ZOFRAN ODT) 4 Mg Tab.rapdis, 4 MG PO Q6H PRN for NAUSEA/VOMITING, #20 TAB.KAREY 0 Refills Prov:SUKI GORDON MD 02/07/18 Reported Medications Promethazine Hcl (PROMETHAZINE HCL) 25 Mg Tablet, 25 MG PO Q8H, TAB 08/21/18 Trazodone Hcl (TRAZODONE HCL) 50 Mg Tablet, 50 MG PO QHS 08/07/18 Escitalopram Oxalate (LEXAPRO) 20 Mg Tablet, 10 MG PO QDAY, TAB 08/07/18 Hydroxyzine Pamoate (VISTARIL) 50 Mg Capsule, 50 MG PO, CAPSULE 08/07/18 Vits W-Ca,Fe,Fa(<1MG) ( VITAMINS) 1 Each Tablet, 1 EACH PO DAILY, TAB 02/07/18 Discontinued Scripts Cyclobenzaprine Hcl (CYCLOBENZAPRINE HCL) 10 Mg Tablet, 10 MG PO Q8H PRN for HEADACHE, #10 TAB 0 Refills Prov:SUKI GORDON MD 02/07/18 Review of Systems All Systems Reviewed/Normal: Yes, Except as Noted Exam General Exam Vital Signs Vital Signs Date Time Temp Pulse Resp B/P (MAP) Pulse Ox O2 Delivery O2 Flow Rate FiO2 08/21/18 06:00 98.4 92 18 139/81 (100) 92 Room Air General Apperance: Alert/Awake/No Acute Distress Neuro: No Gross deficits Eyes: Normal Extraocular Movement & Vison Cardiovascular: Regular Rate and Rhythm Respiratory: No Respiratory Distress Abdomen: Soft, Non-Tender, Non-Distended, Gravid - Non-Tender Integumentary: Skin Intact without Lesions or Rash Psychological: Alert & Oriented X3, Appropriate Mood & Affect Fetus Heart Tone Variabilty: Moderate FHT Accelerations: 15X15 FHT Category: I Medical Decision Making Data Points Result Diagram: 08/21/1859908/21/18599 VTE Prophylasis: Adult Deep Vein Thrombosis/Pulmonary: No Pharmacological Contraindicati: Pt at Low Risk for VTE Mechanical Contraindications: Pt at Low Risk for VTE Assessment and Plan Problems: (1) Previous section Assessment & Plan: Reviewed c/s as planned. R/B/A reviewed in detail. (2) 38 weeks gestation of RAMIREZ PETERS MD Aug 21, 2018 07:04
[2018-08-21] MEDS ORDERED: PHENYLEPHRINE/NS/PF 0.4MG/10ML ONE (07:24)
[2018-08-21] MEDS ORDERED: KETOROLAC 30 MG/ML VIAL ONE (07:47)
[2018-08-21] MEDS ORDERED: KETOROLAC 30 MG/ML VIAL IVP ONE (08:00)
[2018-08-21] MEDS ORDERED: NS 0.9% IRRIGATION 1000ML PLCT IR ONE ×2 (08:03→08:40)
--- NOTE | 2018-08-21 08:38 | Post Operative Note ---
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
[2018-08-21] MEDS ORDERED: OXYTOCIN 30 UNIT/D5LR 500 ML 500 ML IV PRN (08:47)
[2018-08-21] MEDS ORDERED: LANOLIN OINT 7 GM TUBE TP PRN (08:50)
[2018-08-21] MEDS ORDERED: ACETAMINOPHEN 325 MG TAB PO PRN (08:50)
[2018-08-21] MEDS ORDERED: ONDANSETRON 4 MG/2 ML VIAL IVP PRN (08:50)
[2018-08-21] MEDS ORDERED: PROMETHAZINE 25 MG/ML 1 ML AMP IVP PRN (08:50)
[2018-08-21] MEDS ORDERED: ZOLPIDEM TARTRATE 5 MG TAB PO PRN (08:50)
[2018-08-21] MEDS ORDERED: IBUP800T37 PO (08:54)
[2018-08-21] MEDS ORDERED: OXYC-865 PO (08:54)
[2018-08-21] MEDS: DOCUSATE CALCIUM 240 MG CAP PO SCH ×2 (09:00→21:14)
[2018-08-21] MEDS: FAMOTIDINE 20 MG TAB PO SCH ×2 (09:00→21:16)
--- NOTE | 2018-08-21 09:10 | Procedure Note ---
Anesthetic Placement Note Anesthesia Plan: SAB Permit for Anesthesia Signed: Yes Anesthesia Technique: Patient Sitting Anesthesia Prep: Chlorhexidine Interspace: L 4-5 Local Anesthetic: 1% Lidocaine, 25 Gauge Needle Amount Local - cc's: 5 Anesthesia Attempts: 2 (1st attempt with 3.5 inch 25 ga pencan. Not long enough) Intrathecal Needle: Other (5 inch 22 ga quincke) Cerebral Spinal Fluid: Yes, Clear MIN CROSS CLINICAL COURIER Aug 21, 2018 09:10
[2018-08-21] MEDS: diphenhydrAMINE 25 MG CAP PO PRN ×2 (11:03→21:38)
[2018-08-21] MEDS: DLR(*) 1000 ML BAG 1,000 ML IV PRN ×2 (11:03→18:38)
--- NOTE | 2018-08-21 11:24 | OPERATIVE REPORT 1 ---
EVENT DATE: August 21, 2018 SURGEON: Sang Schwartz MD ANESTHESIA: Spinal CHAIN MAKER HAND: Katelyn Talamantes PA-C PREOPERATIVE DIAGNOSIS 1. Previous section times 1. 2. 38 weeks intrauterine . 3. Gestational hypertension. POSTOPERATIVE DIAGNOSIS 1. Previous section times 1. 2. 38 weeks intrauterine . 3. Gestational hypertension. PROCEDURE PERFORMED Repeat low transverse section via Pfannenstiel skin incision. ESTIMATED BLOOD LOSS 500 cc. FLUIDS 1600 cc IV crystalloid. URINE OUTPUT Clear FINDINGS Male infant, cephalic, right occiput anterior position. Normal appearing uterus, tubes and ovaries. Apgars were 8 and 7. PROCEDURE IN DETAIL The patient was brought to the operating room with a working IV and spinal anesthetic was administered. She was then moved to the dorsal lithotomy position with a leftward tilt and prepped and draped in the usual sterile fashion. Using a knife, a Pfannenstiel skin incision was made and carried through to the underlying rectus fascia. This was niched in the midline and extended laterally. The rectus fascia was dissected off the underlying musculature using sharp dissection and then the muscles were in the midline. The peritoneum was entered sharply and extended superiorly and inferiorly taking care to avoid injury to the underlying bladder. A bladder blade was inserted. This exposed the lower uterine segment. The vesicouterine peritoneum was tented and entered sharply and extended laterally using sharp dissection. Once the lower uterine segment had been adequately exposed, received a low transverse incision with the scalpel and carried through to the intraamniotic space. There was clear fluid upon amniotomy. It was extended laterally using blunt lateral traction. A hand was inserted and the infants head was elevated to the incision and fundal pressure was applied. The infant's head delivered atraumatically. Mouth and nose were bulb suctioned. Further fundal pressure effected the delivery of the shoulder and the remainder of the infant followed without difficulty. The mouth and nose were again bulb suctioned. The cord was clamped, cut and the was passed to the awaiting resuscitation team. A cord sample was obtained. The placenta delivered manually. The uterus was exteriorized and cleared of clots and debris. The uterine repair was performed with a #1 Monocryl in a running locking stitch. A second suture of the same type was used to imbricate the first layer, completing a two layer closure. This was hemostatic upon completion. Posterior cul-de-sac was irrigated, swept clear of clots and debris. The uterus was returned to the abdomen and bilateral pelvic gutters were irrigated and swept clear of clots and debris. The parietal peritoneum was then repaired using 3-0 Vicryl in a running and locking stitch. Rectus muscles were reapproximated in the midline with the same stitch. The rectus fascia was repaired with an 0 Vicryl in a running nonlocking stitch. Subcuticular space was irrigated, swept clear of clots and debris. A few capillary bleeders were cauterized. Once the space was repaired, the skin was repaired with 4-0 Monocryl simple subdermal and covered with Dermabond skin adhesive. She tolerated the procedure well. Sponge, lap, needle and instrument counts were all correct x 3. She was taken to recovery in stable condition. JUANITA
[2018-08-21] MEDS: APAP/HYDROCODONE 325/7.5 TAB PO PRN ×2 (12:46→13:49)
[2018-08-21] MEDS: NALBUPHINE HCL 10 MG/ML AMP IVP PRN ×2 (13:13→18:37)
[2018-08-21] MEDS: KETOROLAC 30 MG/ML VIAL IVP SCH ×2 (13:44→20:06)
[2018-08-21] MEDS ORDERED: NALBUPHINE HCL 10 MG/ML AMP IVP ONE (15:40)
[2018-08-21] MEDS: SIMETHICONE 80 MG CHEW CHEW PRN (18:36)
[2018-08-21] MEDS ORDERED: LR(*) 1000 ML BAG 1,000 ML IV ONE (19:25)
[2018-08-21] MEDS ORDERED: LR(*) 1000 ML BAG 1,000 ML ONE (19:39)
[2018-08-21] MEDS ORDERED: FUROSEMIDE 20 MG TAB PO ONE (23:25)
[2018-08-22] VITALS: BP 136/75
[2018-08-22] MEDS: NALBUPHINE HCL 10 MG/ML AMP IVP PRN (00:02)
[2018-08-22] MEDS: KETOROLAC 30 MG/ML VIAL IVP SCH (02:26)
[2018-08-22 04:00] VITALS: BP 120/69
[2018-08-22] MEDS: APAP/HYDROCODONE 325/7.5 TAB PO PRN ×4 (04:23→20:14)
[2018-08-22] MEDS ORDERED: LR(*) 1000 ML BAG 1,000 ML ONE ×2 (05:00)
[2018-08-22] MEDS ORDERED: LR(*) 1000 ML BAG 1,000 ML IV PRN (05:45)
[2018-08-22 06:08] LABS: PLATELET COUNT, AUTOMATED 195 K/uL (150-450)
[2018-08-22] MEDS: FAMOTIDINE 20 MG TAB PO SCH ×2 (08:31→20:14)
[2018-08-22] MEDS: DOCUSATE CALCIUM 240 MG CAP PO SCH ×2 (08:31→20:14)
[2018-08-22] MEDS: IBUPROFEN 800 MG TAB PO SCH ×2 (08:32→16:16)
[2018-08-22] MEDS ORDERED: hydrOXYzine 25 MG TAB PO PRN (08:35)
--- NOTE | 2018-08-22 08:43 | OB/GYN Progress Note ---
OB Subjective Progress Notes Subjective 28 yo female post day 1 s/p schedule at 38 weeks. She is doing well this morning, c/o significant itching from the Duramorph from the epidural yesterday, minimal relief with benadryl. Pain controlled with lortab. Moderate vaginal bleeding. Ambulating well, stevens just removed about 30 mins ago. Tole rating PO. doing well, not breast feeding or pumping, does not plan to do so. GI: NEG Nausea, NEG Vomiting : Vaginal Bleeding, Moderate Pain: Moderate, Tolerating PO Pain Meds Neurological: No Headache OB Objective Physical Exam Vital Signs Date Time Temp Pulse Resp B/P (MAP) Pulse Ox O2 Delivery O2 Flow Rate FiO2 08/22/18 08:00 Nasal Cannula 1.5 08/22/18 06:00 97 94 08/22/18 04:00 98.1 08/22/18 04:00 120/69 (86) 08/22/18 00:00 16 Intake and Output 08/22/18 07:00 Intake Total 3790 ml Output Total 1625 ml Balance 2165 ml Intake Oral 440 ml IV Total 3350 ml Output Urine Total 625 ml Other 1000 ml General Appearance: Alert/Awake/No Acute Distress Neurological: No Gross deficits Eyes: Normal Extraocular Movement & Vison Cardiovascular: Normal Rhythm & Peripheral Pulses Respiratory: No Respiratory Distress, Clear to Auscultation Abdomen: Fundus Firm, Other (diffuse pelvic tenderness, fundus firm, 2 finger bredths below the umbilicus) Incision: Clean, Dry, Intact, Dermabond Extremities: No Cyanosis,Clubbing or Edema Integumentary: Skin Intact without Lesions or Rash Psychological: Alert & Oriented X3, Appropriate Mood & Affect Result Diagram: 08/22/18 0555 08/21/18 0600 Assessment and Plan Post Day: 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 Normal post care. Plan for d/c 08/23/18 ADÁN LOU Aug 22, 2018 08:43
[2018-08-22] MEDS ORDERED: INFLUENZA VIRUS VAC 0.5ML SYR IM ONLY ONE (08:50)
[2018-08-22] MEDS ORDERED: DIPHTH/TETANUS/ACEL. PERTUSSIS IM ONLY ONE (08:50)
[2018-08-22] MEDS ORDERED: MEASLES,MUMP,RUBELLA VAC 0.5ML SUBQ ONE (08:50)
[2018-08-22] MEDS: diphenhydrAMINE 25 MG CAP PO PRN (09:13)
--- NOTE | 2018-08-22 10:52 | Anesthesia Post Eval Note ---
Anesthesia Post Eval Note Vital Signs Date Time Temp Pulse Resp B/P (MAP) Pulse Ox O2 Delivery O2 Flow Rate FiO2 08/22/18 08:00 Nasal Cannula 1.5 08/22/18 06:00 97 94 08/22/18 04:00 98.1 08/22/18 04:00 120/69 (86) 08/22/18 00:00 16 Pt able to participate in Eval: Yes Respiratory Status: Satisfactory Pain Managment: Satisfactory PO Nausea/Vomiting: Satisfactory Temperature Management: Satisfactory Mental Status: Satisfactory, Alert, Oriented X3 Post-Op Hydration Status: Satisfactory, Tolerating PO Well, Voiding w/o Diffi culty Anesthesia Type: SAB Anesthesia Tolerance: No anesthesia concerns. MIN CROSS CRNA Aug 22, 2018 10:52
[2018-08-22 13:55] VITALS: BP 131/82
[2018-08-22 19:30] VITALS: BP 131/68
[2018-08-23] VITALS: BP 135/86
[2018-08-23] MEDS: IBUPROFEN 800 MG TAB PO SCH ×4 (00:33→23:51)
[2018-08-23 04:30] VITALS: BP 130/87
[2018-08-23 07:30] VITALS: BP 146/93
[2018-08-23] MEDS: APAP/HYDROCODONE 325/7.5 TAB PO PRN ×3 (07:39→20:34)
[2018-08-23] MEDS: SIMETHICONE 80 MG CHEW CHEW PRN (08:13)
[2018-08-23] MEDS: DOCUSATE CALCIUM 240 MG CAP PO SCH ×2 (08:42→20:34)
[2018-08-23] MEDS: FAMOTIDINE 20 MG TAB PO SCH ×2 (08:42→20:34)
--- NOTE | 2018-08-23 09:23 | OB/GYN Progress Note ---
OB Subjective Progress Notes Subjective Doing well. Bleeding light and pain controlled. O2 sats drop during night. Baby having O2 sat difficulties also. GI: NEG Nausea : Voiding Well Pain: Mild OB Objective Physical Exam Vital Signs Date Time Temp Pulse Resp B/P (MAP) Pulse Ox O2 Delivery O2 Flow Rate FiO2 08/23/18 04:30 97.6 77 18 130/87 (101) 96 Nasal Cannula 1.5 Intake and Output 08/23/18 06:59 Intake Total 740 ml Output Total 300 ml Balance 440 ml Intake Oral 240 ml IV Total 500 ml Output Urine Total 300 ml # Voids 1 General Appearance: Alert/Awake/No Acute Distress Neurological: No Gross deficits Eyes: Normal Extraocular Movement & Vison Cardiovascular: Normal Rhythm & Peripheral Pulses Respiratory: No Respiratory Distress, Clear to Auscultation Abdomen: Fundus Firm, Other (diffuse pelvic tenderness, fundus firm, 2 finger bredths below the umbilicus) Incision: Clean, Dry, Intact, Dermabond Extremities: No Cyanosis,Clubbing or Edema Integumentary: Skin Intact without Lesions or Rash Psychological: Alert & Oriented X3, Appropriate Mood & Affect Result Diagram: 08/22/18 0555 08/21/18 0600 Assessment and Plan 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 Circumcision for baby today. Probable home tomorrow. (2) 38 weeks gestation of (3) delivery, delivered, current hospitalization RAMIREZ PETERS MD Aug 23, 2018 09:23
[2018-08-23 11:15] VITALS: BP 157/86
[2018-08-23 15:30] VITALS: BP 144/93
[2018-08-23 19:23] VITALS: BP 147/95
[2018-08-24 00:11] VITALS: BP 164/96
[2018-08-24 03:25] VITALS: BP 129/87
[2018-08-24] MEDS: APAP/HYDROCODONE 325/7.5 TAB PO PRN (05:59)
[2018-08-24 08:00] VITALS: BP 144/90
[2018-08-24] MEDS: IBUPROFEN 800 MG TAB PO SCH (08:18)
[2018-08-24] MEDS: FAMOTIDINE 20 MG TAB PO SCH (08:18)
[2018-08-24] MEDS: DOCUSATE CALCIUM 240 MG CAP PO SCH (08:18)
--- NOTE | 2018-08-24 11:34 | OB/GYN Progress Note ---
OB Subjective Progress Notes Subjective Doing well. No problems. Wants to go home. GI: NEG Nausea : Voiding Well Pain: Mild OB Objective Physical Exam Vital Signs Date Time Temp Pulse Resp B/P (MAP) Pulse Ox O2 Delivery O2 Flow Rate FiO2 08/24/18 03:25 98.5 95 16 129/87 (101) 98 Room Air 08/23/18 07:30 1.5 Intake and Output 08/24/18 07:00 Intake Total 1270 ml Balance 1270 ml Intake Oral 1270 ml # Voids 2 General Appearance: Alert/Awake/No Acute Distress Neurological: No Gross deficits Eyes: Normal Extraocular Movement & Vison Cardiovascular: Normal Rhythm & Peripheral Pulses Respiratory: No Respiratory Distress, Clear to Auscultation Abdomen: Fundus Firm, Other (diffuse pelvic tenderness, fundus firm, 2 finger bredths below the umbilicus) Incision: Clean, Dry, Intact, Dermabond Extremities: No Cyanosis,Clubbing or Edema Integumentary: Skin Intact without Lesions or Rash Psychological: Alert & Oriented X3, Appropriate Mood & Affect Result Diagram: 08/22/18 0555 08/21/18 0600 Assessment and Plan 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
[2018-08-24] MEDS ORDERED: Acetaminophen/Hydrocodone PO (11:36)
[2018-08-24] MEDS ORDERED: IBUP800T37 PO (11:36)
--- NOTE | 2018-08-24 11:38 | OB/GYN Discharge Summary ---
Discharge Summary Reason for Hosp/Final Diag: (1) Previous section (2) 38 weeks gestation of (3) delivery, delivered, current hospitalization [place] Vital Signs Vital Signs Date Time Temp Pulse Resp B/P (MAP) Pulse Ox O2 Delivery O2 Flow Rate FiO2 08/24/18 03:25 98.5 95 16 129/87 (101) 98 Room Air 08/23/18 07:30 1.5 Weight (Pounds): 229 Result Diagram: 08/22/18 0555 08/21/18 0600 Condition: Improved Discharge: Home, Self Halfway Meds Active Scripts [Apap/Hydrocodone 325/7.5 Tab] 7.5 MG/325 MG TAB No Conflict Check, 1-2 EACH PO Q6H PRN for PAIN, #30 TAB 0 Refills Prov:RAIMREZ SCHWARTZ MD 08/24/18 Ibuprofen (IBUPROFEN) 800 Mg Tablet, 1 TAB PO Q8H for PAIN, #30 TAB Prov:ADÁN LOU 08/21/18 Oxycodone Hcl/Acetaminophen (PERCOCET 5-325 MG TABLET) 1 Each Tablet, 1 EACH PO Q4-6H for PAIN, #20 TAB Prov:ADÁN LOU 08/21/18 Ondansetron (ZOFRAN ODT) 4 Mg Tab.rapdis, 4 MG PO Q6H PRN for NAUSEA/VOMITING, #20 TAB.KAREY 0 Refills Prov:SUKI GORDON MD 02/07/18 Reported Medications Promethazine Hcl (PROMETHAZINE HCL) 25 Mg Tablet, 25 MG PO Q8H, TAB 08/21/18 Trazodone Hcl (TRAZODONE HCL) 50 Mg Tablet, 50 MG PO QHS 08/07/18 Escitalopram Oxalate (LEXAPRO) 20 Mg Tablet, 10 MG PO QDAY, TAB 08/07/18 Hydroxyzine Pamoate (VISTARIL) 50 Mg Capsule, 50 MG PO, CAPSULE 08/07/18 Vits W-Ca,Fe,Fa(<1MG) ( VITAMINS) 1 Each Tablet, 1 EACH PO DAILY, TAB 02/07/18 Discontinued Scripts Cyclobenzaprine Hcl (CYCLOBENZAPRINE HCL) 10 Mg Tablet, 10 MG PO Q8H PRN for HEADACHE, #10 TAB 0 Refills Prov:SUKI GORDON MD 02/07/18 Follow up Referrals: [employer] - In Two Weeks @ [facility] with RAMIREZ SCHWARTZ MD Follow up with: Dr. Schwartz [phone] Follow up in: 6 wks PP or PO, 2 wks PO Discharge Diet: As Tolerates Discharge Activity: As Tolerates, No Heavy Lifting x 6 wks, No Heavy Lifting > 10lb, Pelvic Rest Copies to: RAMIREZ SCHWARTZ MD ; RAMIREZ SCHWARTZ MD Aug 24, 2018 11:38
== END 2018-08-24 12:30 | disposition home or self-care (01) | DRG 765 ==
LOC: OB 05:20
PROVIDERS: ADMIT Obstetrics & Gynecology; ATTEND Obstetrics & Gynecology
PROC: 10D00Z1 Extraction of Products of Conception, Low, Open Approach (ICD-10-PCS; principal; 2018-08-21 07:07)
DX: O34.211 Maternal care for low transverse scar from previous cesarean delivery (principal); Z68.41 Body mass index [BMI] 40.0-44.9, adult; O13.4 Gestational [pregnancy-induced] hypertension without significant proteinuria, complicating childbirth; O99.824 Streptococcus B carrier state complicating childbirth; O99.214 Obesity complicating childbirth; E66.9 Obesity, unspecified; Z37.0 Single live birth; Z3A.38 38 weeks gestation of pregnancy
CPT/HCPCS: 36415; 82040; 82247; 82310; 82374; 82435; 82565; 82570; 82947; 84075; 84132; 84155; 84156; 84295; 84450; 84460; 84520; 85014; 85018; 85025; 86850; 86900; 86901; J0694; J1885; J2270; J2300; J2370; J2405; J2590; J2765; J3010; J3490; J7120; Q0163

== ENCOUNTER 2018-08-29 20:31 | Emergency (ER) | payer MEDICAID ==
[2018-08-21 06:00] VITALS: Wt 92.5 kg
[~2018-08-29 20:31] MED LIST changes: +Acetaminophen/Hydrocodone PO; +PROM-110 PO
--- NOTE | 2018-08-29 22:24 | ER Report ---
History and Physical Time Seen By MD: 22:24 Hx. of Stated Complaint: PT REPORTS PAIN FROM C SECTION DONE ON 08/21/18. HPI/ROS CHIEF COMPLAINT: abdominal pain HISTORY OF PRESENT ILLNESS: This is a 28-year-old female. She had a on August 21. This was a repeat at 38 weeks gestation. She has been having abdominal pain in the lower abdomen. Her surgical incision is healing well. She states that she is on antibiotics for a pelvic infection, she thinks this was Suprax 400 mg once a day. The vaginal bleeding has decreased, but the discharge she has been having seems to be little worse. The pain medicine does not seem to be helping much. No fevers noted. Denies any problems with bowels. She does have a little bit of nausea. Allergies: Coded Allergies: No Known Drug Allergies (Unverified , 08/29/18) Home Meds Active Scripts Hydrocodone Bit/Acetaminophen (HYDROCODON-ACETAMINOPHEN 5-325) 1 Each Tablet, 1 EACH PO Q4H PRN for PAIN, #20 TAB 0 Refills Prov:SUKI GORDON MD 08/30/18 Metronidazole (METRONIDAZOLE) 500 Mg Tablet, 500 MG PO TID, #30 TAB 0 Refills Prov:SUKI GORDON MD 08/30/18 Amoxicillin/Pot Clav 875-125 Mg Tab (AUGMENTIN 875-125 TABLET) 1 Each Tablet, 1 TAB PO Q12H, #20 TAB 0 Refills Prov:SUKI GORDON MD 08/30/18 Ibuprofen (IBUPROFEN) 800 Mg Tablet, 800 MG PO Q8H PRN for PAIN, #30 TAB 0 Refills Prov:RAMIREZ PETERS MD 08/24/18 [Apap/Hydrocodone 325/7.5 Tab] 7.5 MG/325 MG TAB No Conflict Check, 1-2 EACH PO Q6H PRN for PAIN, #30 TAB 0 Refills Prov:RAMIREZ PETERS MD 08/24/18 Ondansetron (ZOFRAN ODT) 4 Mg Tab.rapdis, 4 MG PO Q6H PRN for NAUSEA/VOMITING, #20 TAB.KAREY 0 Refills Prov:SUKI GORDON MD 02/07/18 Reported Medications Trazodone Hcl (TRAZODONE HCL) 50 Mg Tablet, 50 MG PO QHS 08/07/18 Escitalopram Oxalate (LEXAPRO) 20 Mg Tablet, 10 MG PO QDAY, TAB 08/07/18 Hydroxyzine Pamoate (VISTARIL) 50 Mg Capsule, 50 MG PO, CAPSULE 08/07/18 Discontinued Reported Medications Promethazine Hcl (PROMETHAZINE HCL) 25 Mg Tablet, 25 MG PO Q8H, TAB 08/21/18 Vits W-Ca,Fe,Fa(<1MG) ( VITAMINS) 1 Each Tablet, 1 EACH PO DAILY, TAB 02/07/18 Discontinued Scripts Oxycodone Hcl/Acetaminophen (PERCOCET 5-325 MG TABLET) 1 Each Tablet, 1 EACH PO Q4H PRN for PAIN, #20 TAB 0 Refills Prov:SUKI GORDON MD 08/30/18 Ibuprofen (IBUPROFEN) 800 Mg Tablet, 1 TAB PO Q8H for PAIN, #30 TAB Prov:ADÁN LOU 08/21/18 Oxycodone Hcl/Acetaminophen (PERCOCET 5-325 MG TABLET) 1 Each Tablet, 1 EACH PO Q4-6H for PAIN, #20 TAB Prov:ADÁN LOU 08/21/18 Reviewed Nurses Notes: Yes Hx Smoking: No Smoking Status: Never Smoker Exposure to Second Hand Smoke?: No Hx Substance Use Disorder: No Hx Alcohol Use: Yes (rare) Constitutional Vital Sign - Last 24 Hours 08/29/18 08/29/18 08/29/18 08/29/18 20:42 22:07 22:10 22:16 Temp 98.4 Pulse 113 101 Resp 14 B/P (MAP) 134/85 162/115 (131) 147/97 (114) Pulse Ox 92 93 O2 Delivery Room Air 08/29/18 08/29/18 08/29/18 08/29/18 22:35 22:50 23:05 23:20 Pulse 94 96 104 101 Pulse Ox 94 95 96 96 08/29/18 08/29/18 08/30/18 08/30/18 23:25 23:52 00:00 00:30 Pulse 100 B/P (MAP) 141/103 (116) 134/93 (107) 143/83 (103) Pulse Ox 96 08/30/18 08/30/18 08/30/18 08/30/18 01:00 01:30 01:40 01:55 Pulse 88 87 B/P (MAP) 122/76 (91) 132/87 (102) Pulse Ox 97 95 08/30/18 08/30/18 08/30/18 08/30/18 02:00 02:30 02:35 02:47 Pulse 86 91 B/P (MAP) 125/74 (91) 126/83 (97) 118/78 (91) Pulse Ox 99 93 08/30/18 02:55 Pulse 90 Resp 16 B/P (MAP) 118/78 (91) Pulse Ox 94 O2 Delivery Room Air Intake and Output 08/29/18 08/29/18 08/30/18 15:00 23:00 07:00 Intake Total 1100 ml Balance 1100 ml Physical Exam General Appearance: The patient is alert. No acute distress. Eyes: Pupils are equal, round. No pallor, injection or icterus. ENT: Mucous membranes are moist. Normal oral mucosa. Posterior oropharynx is normal. Neck: Supple and non tender. Respiratory: Lungs are clear to auscultation. Cardiovascular: Regular rate and rhythm. No murmurs, gallops or rubs. Normal capillary refill. Gastrointestinal: Abdomen is soft and Has lower abdominal tenderness. No rebound but she is guarding. Nondistended. Normal active bowel sounds. Neurological: Alert and oriented x3. Skin: Warm and dry. No rashes. Musculoskeletal: No tenderness in palpation of the cervical, thoracic and lumbar spine. DIFFERENTIAL DIAGNOSIS: After history and physical exam, differential diagnosis was considered for lower abdominal pain with what sounds like a diagnosis of endometritis, not seeming to be improving on the antibiotic. We'll need to check for any sign of abscess or other infectious process. Medical Decision Making Data Points Result Diagram: 08/29/18230908/29/180 Laboratory Hematology Test 08/29/18 23:10 Red Blood Count 4.11 M/uL (4.17-5.56) Mean Corpuscular Volume 88.2 fL (80.0-96.0) Mean Corpuscular Hemoglobin 28.5 pg (26.0-33.0) Mean Corpuscular Hemoglobin Concent 32.3 g/dL (32.0-36.0) Red Cell Distribution Width 15.5 % (11.5-14.5) Mean Platelet Volume 8.9 fL (7.2-11.1) Neutrophils (%) (Auto) 68.6 % (39.4-72.5) Lymphocytes (%) (Auto) 21.4 % (17.6-49.6) Monocytes (%) (Auto) 7.7 % (4.1-12.4) Eosinophils (%) (Auto) 1.5 % (0.4-6.7) Basophils (%) (Auto) 0.8 % (0.3-1.4) Nucleated RBC Relative Count (auto) 0.0 /100WBC Neutrophils # (Auto) 7.6 K/uL (2.0-7.4) Lymphocytes # (Auto) 2.4 K/uL (1.3-3.6) Monocytes # (Auto) 0.9 K/uL (0.3-1.0) Eosinophils # (Auto) 0.2 K/uL (0.0-0.5) Basophils # (Auto) 0.1 K/uL (0.0-0.1) Nucleated RBC Absolute Count (auto) 0.00 K/uL Sodium Level 140 mmol/L (137-145) Potassium Level 3.4 mmol/L (3.5-5.0) Chloride Level 107 mmol/L (98-107) Carbon Dioxide Level 22 mmol/L (22-31) Blood Urea Nitrogen 10 mg/dl (7-18) Creatinine 0.60 mg/dl (0.52-1.04) Glomerular Filtration Rate Calc > 60.0 Random Glucose 98 mg/dl (75-110) Calcium Level 9.1 mg/dl (8.4-10.2) Total Bilirubin 0.2 mg/dl (0.2-1.3) Aspartate Amino Transf (AST/SGOT) 15 U/L (0-35) Alanine Aminotransferase (ALT/SGPT) 20 U/L (0-56) Alkaline Phosphatase 139 U/L (0-126) Total Protein 6.7 g/dl (6.3-8.2) Albumin 3.3 g/dl (3.5-5.0) Chemistry Test 08/29/18 23:10 White Blood Count 11.1 k/uL (4.5-11.0) Red Blood Count 4.11 M/uL (4.17-5.56) Hemoglobin 11.7 g/dL (12.0-16.0) Hematocrit 36.3 % (34.0-47.0) Mean Corpuscular Volume 88.2 fL (80.0-96.0) Mean Corpuscular Hemoglobin 28.5 pg (26.0-33.0) Mean Corpuscular Hemoglobin Concent 32.3 g/dL (32.0-36.0) Red Cell Distribution Width 15.5 % (11.5-14.5) Platelet Count 359 K/uL (150-450) Mean Platelet Volume 8.9 fL (7.2-11.1) Neutrophils (%) (Auto) 68.6 % (39.4-72.5) Lymphocytes (%) (Auto) 21.4 % (17.6-49.6) Monocytes (%) (Auto) 7.7 % (4.1-12.4) Eosinophils (%) (Auto) 1.5 % (0.4-6.7) Basophils (%) (Auto) 0.8 % (0.3-1.4) Nucleated RBC Relative Count (auto) 0.0 /100WBC Neutrophils # (Auto) 7.6 K/uL (2.0-7.4) Lymphocytes # (Auto) 2.4 K/uL (1.3-3.6) Monocytes # (Auto) 0.9 K/uL (0.3-1.0) Eosinophils # (Auto) 0.2 K/uL (0.0-0.5) Basophils # (Auto) 0.1 K/uL (0.0-0.1) Nucleated RBC Absolute Count (auto) 0.00 K/uL Glomerular Filtration Rate Calc > 60.0 Calcium Level 9.1 mg/dl (8.4-10.2) Total Bilirubin 0.2 mg/dl (0.2-1.3) Aspartate Amino Transf (AST/SGOT) 15 U/L (0-35) Alanine Aminotransferase (ALT/SGPT) 20 U/L (0-56) Alkaline Phosphatase 139 U/L (0-126) Total Protein 6.7 g/dl (6.3-8.2) Albumin 3.3 g/dl (3.5-5.0) ED Course/Re-evaluation Clinical Indication for ER IV: Hydration, IV Access ED Course Labs unremarkable with mild elevation of white count but no left shift. CT scan shows no sign of abscess. I did call and discuss the case with her NAIL PULLER Dr. Vogel. Recommended to switch the patient to Augmentin and metronidazole. She will need to be seen in the office today for follow-up once they open this morning. We did give Rocephin and metronidazole IV on we have the IV access. We will switch her oxycodone to Lortab because she is stating that she is having nausea associated with the oxycodone. Decision to Disposition Date: Aug 30, 2018 Decision to Disposition Time: 02:33 Depart Departure Latest Vital Signs Vital Signs Date Time Temp Pulse Resp B/P (MAP) Pulse Ox O2 Delivery O2 Flow Rate FiO2 08/30/18 02:55 90 16 118/78 (91) 94 Room Air 08/29/18 20:42 98.4 Impression: Primary Impression: Abdominal pain Additional Impression: Endometritis Condition: Improved Disposition: HOME OR SELF-CARE Referrals: ADÁN LOU (PCP) New Scripts Hydrocodone Bit/Acetaminophen (HYDROCODON-ACETAMINOPHEN 5-325) 1 Each Tablet 1 EACH PO Q4H PRN for PAIN, #20 TAB 0 Refills Prov: SUKI GORDON MD 08/30/18 Metronidazole (METRONIDAZOLE) 500 Mg Tablet 500 MG PO TID, #30 TAB 0 Refills Prov: SUKI GORDON MD 08/30/18 Amoxicillin/Pot Clav 875-125 Mg Tab (AUGMENTIN 875-125 TABLET) 1 Each Tablet 1 TAB PO Q12H, #20 TAB 0 Refills Prov: SUKI GORDON MD 08/30/18 Patient Instructions: Endometritis (ED) Additional Instructions: We are going to switch your antibiotics to Augmentin and Metronidazole. Augmenting 875/125 twice a day. Metronidazole 500mg three times a day. Keep taking the Lortab for pain. You can take 2 tablets every 4 hours as needed for pain. Call Dr. Peters's office in the morning. You will need to be seen Sunday for re-evaluation Problem Qualifiers Primary Impression: Abdominal pain Abdominal location: lower abdomen, unspecified Qualified Codes: R10.30 - Lower abdominal pain, unspecified SUKI GORDON MD Aug 29, 2018 22:24
[2018-08-29] MEDS ORDERED: NS(*) 0.9% 1000 ML BAG 1,000 ML IV ONE (22:35)
[2018-08-29] MEDS ORDERED: HYDROMORPHONE HCL 1 MG/ML SYRINGE IVP ONE (22:35)
[2018-08-29] MEDS ORDERED: ONDANSETRON 4 MG/2 ML VIAL IVP ONE (22:35)
[2018-08-29 23:32] LABS: PLATELET COUNT, AUTOMATED 359 K/uL (150-450)
[2018-08-29] MEDS ORDERED: IOPAMIDOL 76% 75 ML INFUS BTL 75 ML ONE (23:39)
--- NOTE | 2018-08-30 00:41 | RADIOLOGY IMAGING REPORT ---
FACILITY: [facility] - [place] PATIENT NAME: Kenneth Quiñonez : 1990 MR: [id number] V: [id number] EXAM DATE: ORDERING PHYSICIAN: SUKI GORDON TECHNOLOGIST: Location: [facility] - [place], [place] Patient: Kenneth Quiñonez : 1990 Visit/Account:[id number] Date of Sevice: 08/29/2018 Computed tomograpy abdomen and pelvis with IV contrast Indication: Abdominal pain. Recent section one week ago. Comparison: 09/25/2017. Technique: Transaxial computed tomography images were obtained through the abdomen and pelvis follo wing the injection of nonionic iodinated intravenous contrast. Reformatted coronal and sagittal image s were also obtained. One of the following dose optimization techniques was utilized in the performance of this exam: Autom ated exposure control; adjustment of the mA and/or kV according to the patient's size; or use of an i terative reconstruction technique. Specific details can be referenced in the facility's radiology C T exam operational policy. Contrast: 75 ml of Isovue-370 IV contrast. Findings: Lower lung moss: Linear, platelike atelectasis is present within both lung bases. Liver: No focal parenchymal abnormality of the liver. Biliary: Gallbladder appears unremarkable as well as the intra and extra hepatic biliary system. Pancreas: Normal appearance. Spleen: Normal appearance. Adrenal glands: Unremarkable. 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 No evidence for hydronephrosis, renal calculi or perinephric stranding. Bowel / peritoneum / mesenteries: No colonic wall thickening or pericolonic inflammation. The appendi x is well-seen and is normal. No small bowel abnormality. Lymph node assessment: No pathologic adenopathy identified. Pelvic structures: There is no free pelvic fluid. No intrapelvic hematoma is identified. The patie nt's uterus is enlarged in keeping with the recent . There are postoperative findings involv ing the low anterior pelvic musculature and the subcutaneous tissues in keeping with the recent keerthi crow section. There is a crescentic shaped region of low attenuation in the midline and extending to t he right and to the left of the midline associated with the rectus musculature in the operative bed. This area measures 8.5 x 2.5 cm in the transaxial plane and measures up to 5.4 cm craniocaudally. A s mirella davey of gas is seen in this location (image 96). This may simply represent an operative bed, i ntramuscular seroma/evolving hematoma after the recent surgery. The davey of gas may also be normal p ostoperative change. Superimposed infection and developing operative bed abscess cannot be excluded. Clinical correlation is necessary. Stranding in the overlying subcutaneous tissues may be normal give n the recent procedure. Another davey of gas is seen within the subcutaneous tissues on image 104. Vessels: No significant atherosclerotic calcifications seen throughout a nonaneurysmal abdominal aort a and branches. Musculoskeletal / Body wall: No acute or aggressive osseous abnormality. IMPRESSION: 1. Enlarged uterus in keeping with the recent with postoperative changes involving the ante rior low pelvic musculature and subcutaneous tissues. No intraperitoneal fluid collection or hematoma is suspected. 2. [place]-shaped region of low attenuation in the midline and symmetric from right to left involvin g the low anterior pelvic musculature. This may represent an evolving operative bed seroma/hematoma. Single davey of gas is present here which may also be normal. The possibility of superimposed infecti on and evolving operative bed abscess cannot be excluded. Clinical correlation is necessary. 3. Ptotic and malrotated right kidney. No evidence of stone or hydronephrosis. Report Dictated By: Maximus Lopez at 08/30/2018 12:24 AM Report E-Signed By: Maximus Lopez at 08/30/2018 12:37 AM WSN:[id number]
[2018-08-30] MEDS ORDERED: HYDROMORPHONE HCL 1 MG/ML SYRINGE IVP ONE (01:15)
[2018-08-30] MEDS ORDERED: metroNIDAZOLE* 500MG/100ML BAG 100 ML IVPB ONE (01:15)
[2018-08-30] MEDS ORDERED: cefTRIAXone 1 GM VIAL IVP ONE (01:15)
[2018-08-30] MEDS ORDERED: OXYC-865 PO (02:37)
[2018-08-30] MEDS ORDERED: AMOX-559 PO (02:37)
[2018-08-30] MEDS ORDERED: METR-160 PO (02:37)
[2018-08-30] MEDS ORDERED: AMOX/CLAV 875 MG TAB PO ONE (02:40)
[2018-08-30 02:55] VITALS: BP 118/78
[2018-08-30] MEDS ORDERED: ACET/HYDROC 5/325MG TH ER ONLY 2 TAB/BOTTLE PO ONE (02:55)
[2018-08-30] MEDS ORDERED: APAP/HYDROCODONE 325/5 TAB PO ONE (02:55)
[2018-08-30] MEDS ORDERED: LOR5/325 PO (02:57)
== END 2018-08-30 03:05 | disposition home or self-care (01) ==
LOC: ER 21:08
DX: R10.30 Lower abdominal pain, unspecified (principal); N71.9 Inflammatory disease of uterus, unspecified
CPT/HCPCS: 36415; 74177; 85025; 87040; 96361; 96365; 96375; 99284; J0696; J1170; J2405; J3490; J7030; Q9967; 82040; 82247; 82310; 82374; 82435; 82565; 82947; 84075; 84132; 84155; 84295; 84450; 84460; 84520

== ENCOUNTER 2018-09-18 15:34 | Emergency (ER) | payer MEDICAID ==
[2018-08-21 06:00] VITALS: Wt 89.8 kg
[~2018-09-18 15:34] MED LIST changes: -HYDR-653 PO
[2018-09-18] MEDS ORDERED: NS(*) 0.9% 1000 ML BAG 1,000 ML IV ONE (16:52)
--- NOTE | 2018-09-18 16:55 | ER Report ---
History and Physical Time Seen By MD: 16:52 Hx. of Stated Complaint: PATIENT HAD A 3 WEEKS PRIOR. STATES PAIN IN HER LOWER ABDOMEN. DENIES FEVER HPI/ROS CHIEF COMPLAINT: Abdominal pain HISTORY OF PRESENT ILLNESS: This is a 28-year-old female who presents to the emergency department for abdominal pain. Patient states that about 3 weeks ago she had a , delivery went well, she ended up with an infection, was given IV antibiotics as well as oral antibiotics. Patient states she continues to have abdominal pain and now has diarrhea. No fever or chills. Intermittent nausea no vomiting. No dysuria. No chest pain or shortness breath. No rashes. REVIEW OF SYSTEMS: Constitutional: No fever, no chills. Eyes: No discharge. ENT: No sore throat. Cardiovascular: No chest pain, no palpitations. Respiratory: No cough, no shortness of breath. Gastrointestinal: As above. Genitourinary: No hematuria. Musculoskeletal: No back pain. Skin: No rashes. Neurological: No headache. Allergies: Coded Allergies: No Known Drug Allergies (Unverified , 08/29/18) Home Meds Active Scripts Ondansetron (ZOFRAN ODT) 4 Mg Tab.rapdis, 4 MG PO Q6H PRN for NAUSEA/VOMITING, # 20 TAB.KAREY Prov:ORALIA SINGH [facility]- 09/18/18 Hydrocodone Bit/Acetaminophen (NORCO 5-325 TABLET) 1 Each Tablet, 1 EACH PO Q4- 6H PRN for PAIN, #8 TAB 0 Refills Prov:ORALIA SINGH [facility]- 09/18/18 Reported Medications Escitalopram Oxalate (LEXAPRO) 20 Mg Tablet, 10 MG PO QDAY, TAB 08/07/18 Hydroxyzine Pamoate (VISTARIL) 50 Mg Capsule, 50 MG PO, CAPSULE 08/07/18 Discontinued Reported Medications Trazodone Hcl (TRAZODONE HCL) 50 Mg Tablet, 50 MG PO QHS 08/07/18 Discontinued Scripts Hydrocodone Bit/Acetaminophen (HYDROCODON-ACETAMINOPHEN 5-325) 1 Each Tablet, 1 EACH PO Q4H PRN for PAIN, #20 TAB 0 Refills Prov:SUKI GORDON MD 08/30/18 Metronidazole (METRONIDAZOLE) 500 Mg Tablet, 500 MG PO TID, #30 TAB 0 Refills Prov:SUKI GORDON MD 08/30/18 Amoxicillin/Pot Clav 875-125 Mg Tab (AUGMENTIN 875-125 TABLET) 1 Each Tablet, 1 TAB PO Q12H, #20 TAB 0 Refills Prov:SUKI GORDON MD 08/30/18 Ibuprofen (IBUPROFEN) 800 Mg Tablet, 800 MG PO Q8H PRN for PAIN, #30 TAB 0 Refills Prov:RAMIREZ PETERS MD 08/24/18 [Apap/Hydrocodone 325/7.5 Tab] 7.5 MG/325 MG TAB No Conflict Check, 1-2 EACH PO Q6H PRN for PAIN, #30 TAB 0 Refills Prov:RAMIREZ PETERS MD 08/24/18 Ondansetron (ZOFRAN ODT) 4 Mg Tab.rapdis, 4 MG PO Q6H PRN for NAUSEA/VOMITING, #20 TAB.KAREY 0 Refills Prov:SUKI GORDON MD 02/07/18 Past Medical/Surgical History The patient is a , left ankle surgery, 2. Reviewed Nurses Notes: Yes Hx Smoking: No Smoking Status: Never Smoker Exposure to Second Hand Smoke?: No Hx Substance Use Disorder: No Hx Alcohol Use: Yes (rare) Constitutional Vital Sign - Last 24 Hours 09/18/18 09/18/18 09/18/18 09/18/18 15:50 16:37 17:00 17:04 Temp 97.5 Pulse 80 97 Resp 18 B/P (MAP) 132/83 (99) 118/76 (90) Pulse Ox 97 09/18/18 09/18/18 09/18/18 09/18/18 17:09 17:30 17:39 18:00 Pulse 94 95 B/P (MAP) 124/81 (95) 124/73 (90) Pulse Ox 97 95 09/18/18 09/18/18 18:09 18:30 Pulse 94 B/P (MAP) 122/79 (93) Pulse Ox 94 Physical Exam General Appearance: The patient is alert, has no immediate need for airway protection and no signs of toxicity. Eyes: Pupils equal and round no pallor or injection. ENT, Mouth: Mucous membranes are moist. Respiratory: There are no retractions, lungs are clear to auscultation. Cardiovascular: Regular rate and rhythm. Gastrointestinal: Abdomen is soft, mild tenderness to bilateral lower quadrants, normoactive bowel sounds, no masses, no abdominal bruits. Neurological: Alert and oriented 4. Moving all jaundice. Following all comm ands. No focal neuro deficits. Skin: suture line is well approximated, no indication of infection, no cellulitis or erythema. No purulent drainage. Musculoskeletal: Neck is supple non tender. Extremities are nontender, nonswollen and have full range of motion. DIFFERENTIAL DIAGNOSIS: After history and physical exam differential diagnosis was considered for abdominal pain in a female including but not limited to ovarian cyst, pelvic inflammatory disease, uterine abscess, postoperative pain, ovarian torsion, urinary tract infection, and appendicitis. Medical Decision Making Data Points Result Diagram: 09/18/18 1654 09/18/18 1654 Laboratory Hematology Test 09/18/18 16:36 09/18/18 16:54 Urine Color Yellow Urine Clarity Cloudy Urine pH 5.0 pH (4.8-9.5) Urine Specific Mather 1.019 Urine Protein Negative mg/dL (NEGATIVE) Urine Glucose (UA) Negative mg/dL (NEGATIVE) Urine Ketones Negative mg/dL (NEGATIVE) Urine Blood Negative (NEGATIVE) Urine Nitrite Negative (NEGATIVE) Urine Bilirubin Negative (NEGATIVE) Urine Urobilinogen 2.0 mg/dL (0.2-1.9) Urine Leukocyte Esterase Trace (NEGATIVE) Urine RBC 2 /HPF (0-2/HPF) Urine WBC 7 /HPF (0-5/HPF) Urine Squamous Epithelial Cells Many /LPF (</=FEW) Urine Bacteria Negative /HPF (NONE-FEW) Urine Mucus Few /HPF (NONE-FEW) Red Blood Count 4.36 M/uL (4.17-5.56) Mean Corpuscular Volume 88.8 fL (80.0-96.0) Mean Corpuscular Hemoglobin 29.3 pg (26.0-33.0) Mean Corpuscular Hemoglobin Concent 33.0 g/dL (32.0-36.0) Red Cell Distribution Width 19.1 % (11.5-14.5) Mean Platelet Volume 9.9 fL (7.2-11.1) Neutrophils (%) (Auto) 60.5 % (39.4-72.5) Lymphocytes (%) (Auto) 29.9 % (17.6-49.6) Monocytes (%) (Auto) 7.3 % (4.1-12.4) Eosinophils (%) (Auto) 1.1 % (0.4-6.7) Basophils (%) (Auto) 1.2 % (0.3-1.4) Nucleated RBC Relative Count (auto) 0.2 /100WBC Neutrophils # (Auto) 5.4 K/uL (2.0-7.4) Lymphocytes # (Auto) 2.7 K/uL (1.3-3.6) Monocytes # (Auto) 0.6 K/uL (0.3-1.0) Eosinophils # (Auto) 0.1 K/uL (0.0-0.5) Basophils # (Auto) 0.1 K/uL (0.0-0.1) Nucleated RBC Absolute Count (auto) 0.02 K/uL Sodium Level 140 mmol/L (137-145) Potassium Level 3.6 mmol/L (3.5-5.0) Chloride Level 105 mmol/L (98-107) Carbon Dioxide Level 25 mmol/L (22-31) Blood Urea Nitrogen 9 mg/dl (7-18) Creatinine 0.80 mg/dl (0.52-1.04) Glomerular Filtration Rate Calc > 60.0 Random Glucose 92 mg/dl (75-110) Calcium Level 9.2 mg/dl (8.4-10.2) Total Bilirubin 0.5 mg/dl (0.2-1.3) Aspartate Amino Transf (AST/SGOT) 43 U/L (0-35) Alanine Aminotransferase (ALT/SGPT) 32 U/L (0-56) Alkaline Phosphatase 138 U/L (0-126) Total Protein 7.1 g/dl (6.3-8.2) Albumin 3.7 g/dl (3.5-5.0) Lipase 125 U/L (23-300) Chemistry Test 09/18/18 16:36 09/18/18 16:54 Urine Color Yellow Urine Clarity Cloudy Urine pH 5.0 pH (4.8-9.5) Urine Specific Mather 1.019 Urine Protein Negative mg/dL (NEGATIVE) Urine Glucose (UA) Negative mg/dL (NEGATIVE) Urine Ketones Negative mg/dL (NEGATIVE) Urine Blood Negative (NEGATIVE) Urine Nitrite Negative (NEGATIVE) Urine Bilirubin Negative (NEGATIVE) Urine Urobilinogen 2.0 mg/dL (0.2-1.9) Urine Leukocyte Esterase Trace (NEGATIVE) Urine RBC 2 /HPF (0-2/HPF) Urine WBC 7 /HPF (0-5/HPF) Urine Squamous Epithelial Cells Many /LPF (</=FEW) Urine Bacteria Negative /HPF (NONE-FEW) Urine Mucus Few /HPF (NONE-FEW) White Blood Count 8.9 k/uL (4.5-11.0) Red Blood Count 4.36 M/uL (4.17-5.56) Hemoglobin 12.8 g/dL (12.0-16.0) Hematocrit 38.8 % (34.0-47.0) Mean Corpuscular Volume 88.8 fL (80.0-96.0) Mean Corpuscular Hemoglobin 29.3 pg (26.0-33.0) Mean Corpuscular Hemoglobin Concent 33.0 g/dL (32.0-36.0) Red Cell Distribution Width 19.1 % (11.5-14.5) Platelet Count 318 K/uL (150-450) Mean Platelet Volume 9.9 fL (7.2-11.1) Neutrophils (%) (Auto) 60.5 % (39.4-72.5) Lymphocytes (%) (Auto) 29.9 % (17.6-49.6) Monocytes (%) (Auto) 7.3 % (4.1-12.4) Eosinophils (%) (Auto) 1.1 % (0.4-6.7) Basophils (%) (Auto) 1.2 % (0.3-1.4) Nucleated RBC Relative Count (auto) 0.2 /100WBC Neutrophils # (Auto) 5.4 K/uL (2.0-7.4) Lymphocytes # (Auto) 2.7 K/uL (1.3-3.6) Monocytes # (Auto) 0.6 K/uL (0.3-1.0) Eosinophils # (Auto) 0.1 K/uL (0.0-0.5) Basophils # (Auto) 0.1 K/uL (0.0-0.1) Nucleated RBC Absolute Count (auto) 0.02 K/uL Glomerular Filtration Rate Calc > 60.0 Calcium Level 9.2 mg/dl (8.4-10.2) Total Bilirubin 0.5 mg/dl (0.2-1.3) Aspartate Amino Transf (AST/SGOT) 43 U/L (0-35) Alanine Aminotransferase (ALT/SGPT) 32 U/L (0-56) Alkaline Phosphatase 138 U/L (0-126) Total Protein 7.1 g/dl (6.3-8.2) Albumin 3.7 g/dl (3.5-5.0) Lipase 125 U/L (23-300) Urinalysis Test 09/18/18 16:36 Urine Color Yellow Urine Clarity Cloudy Urine pH 5.0 pH (4.8-9.5) Urine Specific Mather 1.019 Urine Protein Negative mg/dL (NEGATIVE) Urine Glucose (UA) Negative mg/dL (NEGATIVE) Urine Ketones Negative mg/dL (NEGATIVE) Urine Blood Negative (NEGATIVE) Urine Nitrite Negative (NEGATIVE) Urine Bilirubin Negative (NEGATIVE) Urine Urobilinogen 2.0 mg/dL (0.2-1.9) Urine Leukocyte Esterase Trace (NEGATIVE) Urine RBC 2 /HPF (0-2/HPF) Urine WBC 7 /HPF (0-5/HPF) Urine Squamous Epithelial Cells Many /LPF (</=FEW) Urine Bacteria Negative /HPF (NONE-FEW) Urine Mucus Few /HPF (NONE-FEW) EKG/Imaging Imaging CCESSION #: [id number] Study: CT scan of the abdomen and pelvis with intravenous contrast Indication: Abdominal pain, history of uterine infection. Patient status post C- section Comparison study: August 29, 2018 Contrast used: 75 mL Isovue-370 Technique: Multiple axial images were obtained through the abdomen and pelvis following intravenous administration of iodinated contrast. Coronal and sagittal two-dimensional reconstructions were made from the original data set. One of the following dose optimization techniques was utilized in the performance of this exam: Automated exposure control; adjustment of the mA and/or kV according to the patient's size; or use of an iterative reconstruction technique. Specific details can be referenced in the facility's radiology CT exam operational policy. Findings: The fluid collection within the anterior abdominal wall is no longer present. Lung bases: Unremarkable Liver: Unremarkable Spleen: Unremarkable Gallbladder: Unremarkable Stomach: Unremarkable Small bowel:The small bowel is unremarkable in appearance. Large bowel: The large bowel is unremarkable in appearance. Pancreas: Unremarkable Adrenal glands: Unremarkable Kidneys: The left kidney is unremarkable. The right kidney is ptotic and m alrotated. This is unchanged. Retroperitoneum: Unremarkable Pelvis: There is a fluid collection present within the The uterus is enlarged. This is an expected finding for a patient recently . The uterus has decreased in size as compared to the previous study. There is no abnormal contr ast enhancement identified within the uterus. Bony structures: Unremarkable IMPRESSION: Interval resolution of fluid collection within the anterior abdominal wall. The uterus is enlarged, but decreased in size as compared to the previous study. There is no evidence of abnormal contrast enhancement within the uterus. There is no evidence of intra-abdominal abnormality. Report Dictated By: John Louis at 09/18/2018 6:57 PM Report E-Signed By: John Louis at 09/18/2018 7:12 PM WSN:[id number] ED Course/Re-evaluation Clinical Indication for ER IV: Hydration, IV Access ED Course The patient was admitted to room. A history of this were obtained. Differential diagnoses were considered. An IV was started. A CBC, CMP were obtained. A UA was collected. Lab studies unremarkable. Contaminated urine. A CT of the abdomen and pelvis showing Interval resolution of fluid collection within the anterior abdominal wall. The uterus is enlarged, but decreased in size as compared to the previous study. There is no evidence of abnormal contrast enhancement within the uterus. There is no evidence of intra-abdominal abnormality. I did review the imaging results as well as the laboratory studies with the patient. Did tell her that there is improvement on imaging that the lower abdominal pain that she is experiencing at this time does not appear to be from an infectious process, it could be from the surgical site, secondary to surgery. The patient exposed understanding. I did recommend a follow-up in next several days with the patient's primary care provider. Patient expressed understanding and will be discharged home. Patient was also given a 1 L normal saline bolus, 4mg IV Zofran, 4 mg IV morphine 2. I'll send patient home with Zofran for nausea as well as hydrocodone. She does understand that this can cause constipation. The diarrhea that she is experiencing is likely from the recent antibiotic use. The stool studies that worsened in from the patient's primary care provider are negative for any infectious process. Decision to Disposition Date: Sep 18, 2018 Decision to Disposition Time: 19:39 Depart Departure Latest Vital Signs Vital Signs Date Time Temp Pulse Resp B/P (MAP) Pulse Ox O2 Delivery O2 Flow Rate FiO2 09/18/18 18:30 122/79 (93) 09/18/18 18:09 94 94 09/18/18 15:50 97.5 18 Impression: Primary Impression: Abdominal pain Additional Impression: Previous section Condition: Improved Disposition: HOME OR SELF-CARE Referrals: ADÁN LOU (PCP) 5 Days New Scripts Ondansetron (ZOFRAN ODT) 4 Mg Tab.rapdis 4 MG PO Q6H PRN for NAUSEA/VOMITING, #20 TAB.KAREY Prov: ORALIA SINGH [facility] 09/18/18 Hydrocodone Bit/Acetaminophen (NORCO 5-325 TABLET) 1 Each Tablet 1 EACH PO Q4-6H PRN for PAIN, #8 TAB 0 [facility]/18/18 Patient Instructions: Abdominal Pain (ED), (GEN) Additional Instructions: Your blood work is not showing any indication of infection. The CT of her abdomen is not showing anything concerning, infected showing improvement from the previous images. Be sure to follow-up with your B[employer]INE [employer]PERATOR, primary care provider within 2-5 days for reevaluation. Drink plenty of water. Take Tylenol or ibuprofen as needed for pain. The Lortab for severe pain. Get plenty of rest. Return to the ER for any other concerns or worsening symptoms. Problem Qualifiers Primary Impression: Abdominal pain Abdominal location: lower abdomen, unspecified Qualified Codes: R10.30 - Lower abdominal pain, unspecified ORALIA SINGH [facility]- Sep 18, 2018 16:55
[2018-09-18] MEDS ORDERED: MORPHINE 4 MG/ML SDV IVP ONE ×2 (17:20→19:30)
[2018-09-18] MEDS ORDERED: ONDANSETRON 4 MG/2 ML VIAL IVP ONE (17:20)
[2018-09-18 17:29] LABS: PLATELET COUNT, AUTOMATED 318 K/uL (150-450)
[2018-09-18] MEDS ORDERED: IOPAMIDOL 76% 75 ML INFUS BTL 75 ML ONE (18:24)
[2018-09-18 18:30] VITALS: BP 122/79
--- NOTE | 2018-09-18 19:16 | RADIOLOGY IMAGING REPORT ---
FACILITY: [facility] - [place] PATIENT NAME: Kenneth Quiñonez : 1990 MR: [id number] V: [id number] EXAM DATE: ORDERING PHYSICIAN: ORALIA SINGH TECHNOLOGIST: Location: [facility] Patient: Kenneth Quiñonez : 1990 Visit/Account:[id number] Date of Sevice: 09/18/2018 Study: CT scan of the abdomen and pelvis with intravenous contrast Indication: Abdominal pain, history of uterine infection. Patient status post Comparison study: August 29, 2018 Contrast used: 75 mL Isovue-370 Technique: Multiple axial images were obtained through the abdomen and pelvis following intravenous a dministration of iodinated contrast. Coronal and sagittal two-dimensional reconstructions were made f rom the original data set. One of the following dose optimization techniques was utilized in the performance of this exam: Autom ated exposure control; adjustment of the mA and/or kV according to the patient's size; or use of an i terative reconstruction technique. Specific details can be referenced in the facility's radiology C T exam operational policy. Findings: The fluid collection within the anterior abdominal wall is no longer present. Lung bases: Unremarkable Liver: Unremarkable Spleen: Unremarkable Gallbladder: Unremarkable Stomach: Unremarkable Small bowel:The small bowel is unremarkable in appearance. Large bowel: The large bowel is unremarkable in appearance. Pancreas: Unremarkable Adrenal glands: Unremarkable Kidneys: The left kidney is unremarkable. 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 This is unchange d. Retroperitoneum: Unremarkable Pelvis: There is a fluid collection present within the The uterus is enlarged. This is an expected fi nding for a patient recently . The uterus has decreased in size as compared to the previous study. There is no abnormal contrast enhancement identified within the uterus. Bony structures: Unremarkable IMPRESSION: Interval resolution of fluid collection within the anterior abdominal wall. The uterus is enlarged, but decreased in size as compared to the previous study. There is no evidence of abnormal contrast enhancement within the uterus. There is no evidence of intra-abdominal abnormality. Report Dictated By: John Louis at 09/18/2018 6:57 PM Report E-Signed By: John Louis at 09/18/2018 7:12 PM WSN:[id number]
[2018-09-18] MEDS ORDERED: APAP/HYDROCODONE 325/5 TAB PO ONE (19:30)
[2018-09-18] MEDS ORDERED: HYDR-653 PO (19:38)
[2018-09-18] MEDS ORDERED: ONDA4TAB PO (19:38)
== END 2018-09-18 19:50 | disposition home or self-care (01) ==
LOC: ER 16:50
DX: R10.30 Lower abdominal pain, unspecified (principal); Z98.890 Other specified postprocedural states
CPT/HCPCS: 81001; 83690; 85025; 96361; 96374; 96375; 99284; J2270; J2405; J7030; Q9967; 74177; 82040; 82247; 82310; 82374; 82435; 82565; 82947; 84075; 84132; 84155; 84295; 84450; 84460; 84520

== ENCOUNTER → 2018-09-18 | Outpatient (CLI) | payer MEDICAID ==
[2018-08-21 06:00] VITALS: BMI 40.6
[~2018-09-18] MED LIST changes: +HYDR-653 PO; +METR-160 PO
== END ==
LOC: LAB 13:21
PROVIDERS: ATTEND Physician Assistant
DX: R19.7 Diarrhea, unspecified (principal)
CPT/HCPCS: 83630; 87045; 87177; 87324; 87449

== ENCOUNTER 2018-12-23 13:25 | Emergency (ER) | payer MEDICAID ==
[2018-08-21 06:00] VITALS: Wt 87.5 kg
[~2018-12-23 13:25] MED LIST changes: +HYDR-653 PO; -METR-160 PO; +METR500T15 PO
--- NOTE | 2018-12-23 13:33 | ER Report ---
History and Physical Time Seen By MD: 13:33 HPI/ROS CHIEF COMPLAINT: Abdominal pain HISTORY OF PRESENT ILLNESS: [id number] female presents to the emergency department for abdominal pain. Patient is status post 4 months ago. Had a "uterine infection that resolved". Has been doing well since then, this morning at midnight she suddenly awoke to severe abdominal pain, has been relatively constant since then with moments where it spikes. The pain is diffuse through the abdomen. Very uncomfortable to lay down. No nausea or vomiting. No dysuria, no changes in stools. No chest pain or shortness of breath. No other complaints. REVIEW OF SYSTEMS: Constitutional: No fever, no chills. Eyes: No discharge. ENT: No sore throat. Cardiovascular: No chest pain, no palpitations. Respiratory: No cough, no shortness of breath. Gastrointestinal: As above. Genitourinary: No hematuria. Musculoskeletal: No back pain. Skin: No rashes. Neurological: No headache. Allergies: Coded Allergies: No Known Drug Allergies (Unverified , 12/23/18) Home Meds Active Scripts Hydrocodone Bit/Acetaminophen (HYDROCODON-ACETAMINOPHEN 5-325) 1 Each Tablet, 1 EACH PO Q4-6H PRN for PAIN, #8 TAB Prov:ORALIA SINGH [facility]- 12/23/18 Reported Medications Escitalopram Oxalate (LEXAPRO) 20 Mg Tablet, 10 MG PO QDAY, TAB 08/07/18 Discontinued Reported Medications Hydroxyzine Pamoate (VISTARIL) 50 Mg Capsule, 50 MG PO, CAPSULE 08/07/18 Discontinued Scripts Ondansetron (ZOFRAN ODT) 4 Mg Tab.rapdis, 4 MG PO Q6H PRN for NAUSEA/VOMITING, #20 TAB.KAREY Prov:ORALIA SINGH [facility]-BC 09/18/18 Hydrocodone Bit/Acetaminophen (NORCO 5-325 TABLET) 1 Each Tablet, 1 EACH PO Q4- 6H PRN for PAIN, #8 TAB 0 Refills Prov:ORALIA SINGH [facility]-BC 09/18/18 Past Medical/Surgical History The patient has a past medical and surgical history of ear infections status post 4 months ago, left ankle surgery. Reviewed Nurses Notes: Yes Hx Smoking: No Smoking Status: Never Smoker Exposure to Second Hand Smoke?: No Hx Substance Use Disorder: No Hx Alcohol Use: Yes (rare) Constitutional Vital Sign - Last 24 Hours 12/23/18 12/23/18 12/23/18 12/23/18 13:25 13:33 13:35 13:55 Temp 98.1 Pulse 98 99 92 Resp 12 B/P (MAP) 145/87 (106) 145/87 Pulse Ox 91 91 O2 Delivery Room Air Room Air 12/23/18 12/23/18 12/23/18 12/23/18 14:00 14:25 14:33 14:42 Pulse 93 B/P (MAP) 145/83 (103) 133/73 (93) Pulse Ox 91 O2 Delivery Room Air O2 Flow Rate 2.0 12/23/18 12/23/18 12/23/18 12/23/18 14:43 14:43 14:45 15:00 Pulse 98 91 89 B/P (MAP) 119/63 (81) Pulse Ox 79 95 98 O2 Delivery Room Air O2 Flow Rate 2.0 12/23/18 12/23/18 12/23/18 12/23/18 15:30 16:00 16:05 16:30 Pulse 86 92 B/P (MAP) 118/75 (89) 135/79 (97) 125/74 (91) Pulse Ox 97 94 O2 Delivery Room Air 12/23/18 12/23/18 12/23/18 12/23/18 16:35 17:00 17:05 17:30 Pulse 88 91 B/P (MAP) 117/72 (87) 125/75 (92) Pulse Ox 94 96 O2 Delivery Room Air Room Air Intake and Output 12/23/18 12/23/18 12/24/18 15:00 23:00 07:00 Intake Total 1000 ml Balance 1000 ml Physical Exam General Appearance: The patient is alert, has no immediate need for airway protection and no signs of toxicity. Eyes: Pupils equal and round no pallor or injection. ENT, Mouth: Mucous membranes are moist. Respiratory: There are no retractions, lungs are clear to auscultation. Cardiovascular: Regular rate and rhythm. Gastrointestinal: Abdomen is round, soft, tenderness in all quadrants with increased tenderness to the left and right lower quadrants. Distant bowel sounds, normoactive. No abdominal bruits. Neurological: Alert and oriented 4. Moving all extremities. Following all commands. No focal neuro deficits. Skin: Warm and dry, no rashes. Musculoskeletal: Neck is supple non tender. Extremities are nontender, nonswollen and have full range of motion. DIFFERENTIAL DIAGNOSIS: After history and physical exam differential diagnosis was considered for abdominal pain in a female including but not limited to ovarian cyst, pelvic inflammatory disease, ovarian torsion, urinary tract infection, and appendicitis. Medical Decision Making Data Points Result Diagram: 12/23/18 1434 12/23/18 1434 Laboratory Hematology Test 12/23/18 14:34 12/23/18 15:50 Red Blood Count 4.23 M/uL (4.17-5.56) Mean Corpuscular Volume 97.7 fL (80.0-96.0) Mean Corpuscular Hemoglobin 32.6 pg (26.0-33.0) Mean Corpuscular Hemoglobin Concent 33.4 g/dL (32.0-36.0) Red Cell Distribution Width 14.8 % (11.5-14.5) Mean Platelet Volume 8.9 fL (7.2-11.1) Neutrophils (%) (Auto) 72.4 % (39.4-72.5) Lymphocytes (%) (Auto) 20.5 % (17.6-49.6) Monocytes (%) (Auto) 5.8 % (4.1-12.4) Eosinophils (%) (Auto) 0.3 % (0.4-6.7) Basophils (%) (Auto) 1.0 % (0.3-1.4) Nucleated RBC Relative Count (auto) 0.0 /100WBC Neutrophils # (Auto) 9.5 K/uL (2.0-7.4) Lymphocytes # (Auto) 2.7 K/uL (1.3-3.6) Monocytes # (Auto) 0.8 K/uL (0.3-1.0) Eosinophils # (Auto) 0.0 K/uL (0.0-0.5) Basophils # (Auto) 0.1 K/uL (0.0-0.1) Nucleated RBC Absolute Count (auto) 0.00 K/uL Sodium Level 138 mmol/L (137-145) Potassium Level 4.0 mmol/L (3.5-5.0) Chloride Level 110 mmol/L (98-107) Carbon Dioxide Level 24 mmol/L (22-31) Blood Urea Nitrogen 11 mg/dl (7-18) Creatinine 0.70 mg/dl (0.52-1.04) Glomerular Filtration Rate Calc > 60.0 Random Glucose 92 mg/dl (75-110) Calcium Level 9.9 mg/dl (8.4-10.2) Total Bilirubin 0.6 mg/dl (0.2-1.3) Aspartate Amino Transf (AST/SGOT) 24 U/L (0-35) Alanine Aminotransferase (ALT/SGPT) 25 U/L (0-56) Alkaline Phosphatase 125 U/L (0-126) Total Protein 7.8 g/dl (6.3-8.2) Albumin 4.2 g/dl (3.5-5.0) Lipase 92 U/L (23-300) Human Chorionic Gonadotropin, Qual Negative (NEGATIVE) Urine Color Yellow Urine Clarity Clear Urine pH 6.0 pH (4.8-9.5) Urine Specific [place] >1.060 Urine Protein Negative mg/dL (NEGATIVE) Urine Glucose (UA) Negative mg/dL (NEGATIVE) Urine Ketones Trace mg/dL (NEGATIVE) Urine Blood Negative (NEGATIVE) Urine Nitrite Negative (NEGATIVE) Urine Bilirubin Negative (NEGATIVE) Urine Urobilinogen Negative mg/dL (0.2-1.9) Urine Leukocyte Esterase Negative (NEGATIVE) Urine RBC None /HPF (0-2/HPF) Urine WBC <1 /HPF (0-5/HPF) Urine Squamous Epithelial Cells Many /LPF (</=FEW) Urine Bacteria Negative /HPF (NONE-FEW) Urine Mucus None /HPF (NONE-FEW) Chemistry Test 12/23/18 14:34 12/23/18 15:50 White Blood Count 13.1 k/uL (4.5-11.0) Red Blood Count 4.23 M/uL (4.17-5.56) Hemoglobin 13.8 g/dL (12.0-16.0) Hematocrit 41.3 % (34.0-47.0) Mean Corpuscular Volume 97.7 fL (80.0-96.0) Mean Corpuscular Hemoglobin 32.6 pg (26.0-33.0) Mean Corpuscular Hemoglobin Concent 33.4 g/dL (32.0-36.0) Red Cell Distribution Width 14.8 % (11.5-14.5) Platelet Count 367 K/uL (150-450) Mean Platelet Volume 8.9 fL (7.2-11.1) Neutrophils (%) (Auto) 72.4 % (39.4-72.5) Lymphocytes (%) (Auto) 20.5 % (17.6-49.6) Monocytes (%) (Auto) 5.8 % (4.1-12.4) Eosinophils (%) (Auto) 0.3 % (0.4-6.7) Basophils (%) (Auto) 1.0 % (0.3-1.4) Nucleated RBC Relative Count (auto) 0.0 /100WBC Neutrophils # (Auto) 9.5 K/uL (2.0-7.4) Lymphocytes # (Auto) 2.7 K/uL (1.3-3.6) Monocytes # (Auto) 0.8 K/uL (0.3-1.0) Eosinophils # (Auto) 0.0 K/uL (0.0-0.5) Basophils # (Auto) 0.1 K/uL (0.0-0.1) Nucleated RBC Absolute Count (auto) 0.00 K/uL Glomerular Filtration Rate Calc > 60.0 Calcium Level 9.9 mg/dl (8.4-10.2) Total Bilirubin 0.6 mg/dl (0.2-1.3) Aspartate Amino Transf (AST/SGOT) 24 U/L (0-35) Alanine Aminotransferase (ALT/SGPT) 25 U/L (0-56) Alkaline Phosphatase 125 U/L (0-126) Total Protein 7.8 g/dl (6.3-8.2) Albumin 4.2 g/dl (3.5-5.0) Lipase 92 U/L (23-300) Human Chorionic Gonadotropin, Qual Negative (NEGATIVE) Urine Color Yellow Urine Clarity Clear Urine pH 6.0 pH (4.8-9.5) Urine Specific [place] >1.060 Urine Protein Negative mg/dL (NEGATIVE) Urine Glucose (UA) Negative mg/dL (NEGATIVE) Urine Ketones Trace mg/dL (NEGATIVE) Urine Blood Negative (NEGATIVE) Urine Nitrite Negative (NEGATIVE) Urine Bilirubin Negative (NEGATIVE) Urine Urobilinogen Negative mg/dL (0.2-1.9) Urine Leukocyte Esterase Negative (NEGATIVE) Urine RBC None /HPF (0-2/HPF) Urine WBC <1 /HPF (0-5/HPF) Urine Squamous Epithelial Cells Many /LPF (</=FEW) Urine Bacteria Negative /HPF (NONE-FEW) Urine Mucus None /HPF (NONE-FEW) Urinalysis Test 12/23/18 15:50 Urine Color Yellow Urine Clarity Clear Urine pH 6.0 pH (4.8-9.5) Urine Specific [place] >1.060 Urine Protein Negative mg/dL (NEGATIVE) Urine Glucose (UA) Negative mg/dL (NEGATIVE) Urine Ketones Trace mg/dL (NEGATIVE) Urine Blood Negative (NEGATIVE) Urine Nitrite Negative (NEGATIVE) Urine Bilirubin Negative (NEGATIVE) Urine Urobilinogen Negative mg/dL (0.2-1.9) Urine Leukocyte Esterase Negative (NEGATIVE) Urine RBC None /HPF (0-2/HPF) Urine WBC <1 /HPF (0-5/HPF) Urine Squamous Epithelial Cells Many /LPF (</=FEW) Urine Bacteria Negative /HPF (NONE-FEW) Urine Mucus None /HPF (NONE-FEW) EKG/Imaging Imaging Location: [facility] Patient: Kenneth Quiñonez : 1990 Visit/Account:[id number] Date of Sevice: 12/23/2018 CT ABDOMEN PELVIS W/ CON HISTORY: abd pain since this morning, hysterectomy four months ago TECHNIQUE: Following administration of IV contrast contiguous axial images acquired through the abdomen/pelvis. Coronal and sagittal reformatting also performed.Dose Lowering Technique One of the following dose optimization techniques was utilized in the performance of this exam: Automated exposure control; adjustment of the mA and/or kV according to the patient's size; or use of an iterative reconstruction technique. Specific details can be referenced in the facility's radiology CT exam operational policy. CONTRAST: 75 mL Isovue-370 COMPARISON: CT abdomen and pelvis September 18, 2018 FINDINGS: Visualized lung bases: There is a 3 mm subpleural nodule lateral aspect right middle lobe best seen on image one of series 3 that remain stable Hepatobiliary: Negative. Spleen: Negative. Adrenals: Left adrenal gland appears unremarkable. Right adrenal gland is not well seen Pancreas: Negative. 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 The CT Hounsfield units do not measure simple fluid and may represent hemorrhagic ovarian cyst GI: Negative. Vessels/spaces/nodes: Collateral vessels in the right-sided the abdomen may represent a tortuous right gonadal vein Bones/soft tissues: Negative. Additional findings: None pertinent. IMPRESSION: There is a 3.2 cm round right adnexal hypodensity. 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 A history and physical were obtained. Differential diagnoses were considered. An IV was started.A CBC, CMP and UA were collected. Negative hCG. WBCs 13.1, chemistry unremarkable, negative UA. A 1 L normal saline bolus was given. 4 mg IV Zofran, 4 mg IV morphine 3, 30 mg IV Toradol, and a hydrocodone take-home pack. A CT of the abdomen and pelvis showing a 3.2 cm round right adnexal hypodensity. The CT Hounsfield units do not measure simple fluid and this may represent a hemorrhagic ovarian cyst. Collateral vessels in the right-sided the abdomen may represent a tortuous right gonadal vein. I reviewed the results with the patient. I also spoke with Dr. Holt as noted below, he recommended a transvaginal ultrasound, transvaginal ultrasound was positive for hemorrhagic cyst uncomplicated, I reviewed the results with the patient. The 13,000 white count is likely a stress response. The patient was instructed to call Dr. Holt's office tomorrow and try to schedule a follow-up appointment this week for reevaluation. Patient was sent home with a prescription for hydrocodone. She was also instructed to take ibuprofen or Tylenol as needed for pain. 12/23/2018 4:30:34 pm call out to [employer] on-call. 12/23/2018 5:00:18 pm call out to [employer] on-call. 12/23/2018 5:14:52 pm I did speak with Dr. Holt, he recommended and a pelvic ultrasound transvaginal, and had no concerning findings on this then have the patient follow-up in his office this week. 12/23/2018 7:30:44 pm I did speak with Dr. Holt, he will follow up with the patient and review her ultrasound this week when she follows up. Decision to Disposition Date: Dec 23, 2018 Decision to Disposition Time: 19:48 Depart Departure Latest Vital Signs Vital Signs Date Time Temp Pulse Resp B/P (MAP) Pulse Ox O2 Delivery O2 Flow Rate FiO2 12/23/18 17:30 125/75 (92) 12/23/18 17:05 91 96 Room Air 12/23/18 14:43 2.0 12/23/18 13:35 98.1 12 Impression: Primary Impression: Abdominal pain Additional Impression: Ovarian cyst Condition: Improved Disposition: HOME OR SELF-CARE Referrals: ADÁN LOU (PCP) RAMIREZ PETERS MD 1 Day New Scripts Hydrocodone Bit/Acetaminophen (HYDROCODON-ACETAMINOPHEN 5-325) 1 Each Tablet 1 EACH PO Q4-6H PRN for PAIN, #8 TAB Prov: ORALIA SINGHP- 12/23/18 Patient Instructions: Ovarian Cyst (ED) Additional Instructions: There were no concerning findings on CT or Pelvic ultrasound today. Please follow up with Dr. Peters tomorrow, or one of the partners for reevaluation. Take Ibuprofen or Tylenol as needed for pain. Take Hydrocodone as needed for severe pain. Drink plenty of fluids. Get plenty of rest. Return to the ED for any other concerns or worsening symptoms. Problem Qualifiers Primary Impression: Abdominal pain Abdominal location: generalized Qualified Codes: R10.84 - Generalized abdominal pain Additional Impression: Ovarian cyst Laterality: right Qualified Codes: N83.201 - Unspecified ovarian cyst, right side ORALIA SINGHP-BC Dec 23, 2018 13:33
[2018-12-23] MEDS ORDERED: MORPHINE 4 MG/ML SDV IVP ONE ×3 (13:50→17:50)
[2018-12-23] MEDS ORDERED: ONDANSETRON 4 MG/2 ML VIAL IVP ONE (13:50)
[2018-12-23] MEDS ORDERED: NS(*) 0.9% 1000 ML BAG 1,000 ML IV ONE (13:50)
[2018-12-23] MEDS ORDERED: IOPAMIDOL 76% 100 ML INFUS BTL 100 ML ONE (14:06)
[2018-12-23 14:40] LABS: PLATELET COUNT, AUTOMATED 367 K/uL (150-450)
--- NOTE | 2018-12-23 15:59 | RADIOLOGY IMAGING REPORT ---
FACILITY: [facility] [place] PATIENT NAME: Kenneth Quiñonez : 1990 MR: [id number] V: [id number] EXAM DATE: ORDERING PHYSICIAN: ORALIA SINGH TECHNOLOGIST: Location: [facility] [place] Patient: Kenneth Quiñonez : 1990 Visit/Account:[id number] Date of Sevice: 12/23/2018 CT ABDOMEN PELVIS W/ CON HISTORY: abd pain since this morning, hysterectomy four months ago TECHNIQUE: Following administration of IV contrast contiguous axial images acquired through the abdom en/pelvis. Coronal and sagittal reformatting also performed.Dose Lowering Technique One of the following dose optimization techniques was utilized in the performance of this exam: Autom ated exposure control; adjustment of the mA and/or kV according to the patient's size; or use of an i terative reconstruction technique. Specific details can be referenced in the facility's radiology C T exam operational policy. CONTRAST: 75 mL Isovue-370 COMPARISON: CT abdomen and pelvis September 18, 2018 FINDINGS: Visualized lung bases: There is a 3 mm subpleural nodule lateral aspect right middle lobe best seen on image one of series 3 that remain stable Hepatobiliary: Negative. Spleen: Negative. Adrenals: Left adrenal gland appears unremarkable. Right adrenal gland is not well seen Pancreas: Negative. 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 The CT Hounsfield units do not measure simp le fluid and may represent hemorrhagic ovarian cyst GI: Negative. Vessels/spaces/nodes: Collateral vessels in the right-sided the abdomen may represent a tortuous right gonadal vein Bones/soft tissues: Negative. Additional findings: None pertinent. IMPRESSION: There is a 3.2 cm round right adnexal hypodensity. 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
[2018-12-23 17:30] VITALS: BP 125/75
--- NOTE | 2018-12-23 19:21 | RADIOLOGY IMAGING REPORT ---
FACILITY: [facility] PATIENT NAME: Kenneth Quiñonez : 1990 MR: [id number] V: [id number] EXAM DATE: ORDERING PHYSICIAN: ORALIA SINGH TECHNOLOGIST: Location: [facility] Patient: Kenneth Quiñonez : 1990 Visit/Account:[id number] Date of Sevice: 12/23/2018 EXAMINATION: Transvaginal pelvic ultrasound with duplex Doppler evaluation. HISTORY: Abdominal pain. Ovarian cyst noted on CT. COMPARISON: CT abdomen/pelvis 12/23/2018. Pelvic ultrasound 09/25/2017. LMP: 12/15/2018. Findings: Normal uterine size and morphology. The uterus is anteverted in position and measures 7.4 x 4.4 x 5. 3 cm. scar along the lower uterine segment. No focal uterine mass. The endometrium is homogeneous in appearance and measures 15 mm in double wall thickness. The right ovary measures 4.5 x 4.4 x 4.0 cm and contains a 3.6 cm complex cyst with some internal ret iculation and nonvascular hypoechoic material, suggestive of a hemorrhagic cyst. There is normal vasc ularity in the surrounding ovarian parenchyma with color and spectral Doppler. Unremarkable left ovary, measuring 2.0 x 2.2 x 2.1 cm. The left ovary demonstrates normal vascularity with Doppler. No other abnormal adnexal masses. No free fluid in the pelvis. IMPRESSION: 1. A 3.6 cm cyst in the right ovary has an ultrasound appearance compatible with a hemorrhagic cyst. 2. Otherwise unremarkable pelvic ultrasound. Report Dictated By: Aashish Smith MD at 12/23/2018 7:13 PM Report E-Signed By: Aashish Smith MD at 12/23/2018 7:16 PM WSN:[id number]
[2018-12-23] MEDS ORDERED: HYDR-385 PO (19:39)
[2018-12-23] MEDS ORDERED: KETOROLAC 30 MG/ML VIAL IVP ONE (19:40)
[2018-12-23] MEDS ORDERED: ACET/HYDROC 5/325MG TH ER ONLY 2 TAB/BOTTLE PO ONE (19:40)
== END 2018-12-23 19:55 | disposition home or self-care (01) ==
LOC: ER 13:58
DX: N83.201 Unspecified ovarian cyst, right side (principal)
CPT/HCPCS: 36415; 74177; 76830; 81001; 83690; 84703; 85025; 96361; 96374; 96375; 96376; 99284; J2270; J2405; J7030; Q9967; 82040; 82247; 82310; 82374; 82435; 82565; 82947; 84075; 84132; 84155; 84295; 84450; 84460; 84520

== ENCOUNTER 2019-05-08 15:28 | Emergency (ER) | payer MEDICAID ==
[2018-08-21 06:00] VITALS: Wt 88.9 kg
[~2019-05-08 15:28] MED LIST changes: +HYDR-385 PO; -TRAZ50TA34 PO; +TRAZ50TA52 PO
[2019-05-08] MEDS ORDERED: HYDR50CA48 (16:10)
[2019-05-08] MEDS ORDERED: BUSP7.5T7 (16:10)
[2019-05-08] MEDS ORDERED: QUET25TA (16:10)
[2019-05-08] MEDS ORDERED: SUMAtriptan SUCC 6MG/0.5ML VL SUBQ ONE (17:10)
[2019-05-08] MEDS ORDERED: KETOROLAC 60 MG/2 ML VIAL IM ONE (17:10)
--- NOTE | 2019-05-08 17:12 | ER Report ---
History and Physical Time Seen By MD: 17:11 Hx. of Stated Complaint: CLARKE X 3 DAYS, TRIED MOTRIN, "HEADACHE MEDICATIONS" AND CAFFEINE WITHOUT RELIEF, N/V (JUSTINO GORDON MD) HPI/ROS CHIEF COMPLAINT: Headache HISTORY OF PRESENT ILLNESS: 29-year-old female comes emergency Department with 2 days of a headache unilateral left side only mild phonophobia photophobia consistent with classic migraine which she does not carry a diagnosis of. No nuchal rigidity no fever chills or sweats no cough no chest pain or shortness of breath. Patient's had headaches like this in the past last couple days and resolves this is not the worst headache of her life. Patient has no additional complaints REVIEW OF SYSTEMS: Respiratory: No cough, no dyspnea. Cardiovascular: No chest pain, no palpitations. Gastrointestinal: No vomiting, no abdominal pain. Musculoskeletal: No back pain. Remainder of the 14 system rev: Yes (JUSTINO GORDON MD) Allergies: Coded Allergies: acetaminophen (Verified Adverse Reaction, Mild, NAUSEA/VOMITING, 05/08/19) oxycodone (Verified Adverse Reaction, Mild, NAUSEA/VOMITING, 05/08/19) Home Meds Active Scripts Sumatriptan Succinate (IMITREX) 50 Mg Tablet, 50 MG PO ONCE PRN for HEADACHE, #6 Prov:LESLEE MENCHACA DO 05/08/19 Promethazine Hcl (PROMETHAZINE HCL) 25 Mg Tablet, 25 MG PO Q4H PRN for NAUSEA/VOMITING, #14 TAB Prov:LESLEE MENCHACA DO 05/08/19 Reported Medications Quetiapine Fumarate (QUETIAPINE FUMARATE) 25 Mg Tablet 05/08/19 Buspirone Hcl (BUSPIRONE HCL) 7.5 Mg Tablet 05/08/19 Hydroxyzine Pamoate (HYDROXYZINE PAMOATE) 50 Mg Capsule 05/08/19 Escitalopram Oxalate (LEXAPRO) 20 Mg Tablet, 10 MG PO QDAY, TAB 08/07/18 Discontinued Scripts Hydrocodone Bit/Acetaminophen (HYDROCODON-ACETAMINOPHEN 5-325) 1 Each Tablet, 1 EACH PO Q4-6H PRN for PAIN, #8 TAB Prov:ORALIA SINGH [facility] 12/23/18 Reviewed Nurses Notes: Yes Old Medical Records Reviewed: Yes (JUSTINO GORDON MD) Hx Smoking: No Smoking Status: Never Smoker Exposure to Second Hand Smoke?: No Hx Substance Use Disorder: No Hx Alcohol Use: Yes (rare) (JUSTINO GORDON MD) Constitutional Vital Sign - Last 24 Hours 05/08/19 05/08/19 05/08/19 05/08/19 16:06 17:06 17:11 17:30 Temp 99.6 Pulse 88 81 Resp 12 B/P (MAP) 124/75 135/91 (106) 134/83 (100) Pulse Ox 93 91 O2 Delivery Room Air 05/08/19 05/08/19 05/08/19 05/08/19 17:41 18:00 18:11 18:16 Pulse 71 75 B/P (MAP) 138/86 (103) Pulse Ox 90 93 94 05/08/19 05/08/19 05/08/19 05/08/19 18:30 18:31 18:46 19:00 Pulse 74 76 B/P (MAP) 126/74 (91) 126/76 (93) Pulse Ox 94 92 (LESLEE MENCHACA DO) Physical Exam General Appearance: The patient is alert, has no immediate need for airway protection and no current signs of toxicity. [ ] Eyes: Pupils equal and round no injection. Respiratory: Chest is non tender, lungs are clear to auscultation. Cardiac: regular rate and rhythm [ ] Gastrointestinal: Abdomen is soft and non tender, no masses, bowel sounds normal. Musculoskeletal: Neck: Neck is supple and non tender. Extremities have full range of motion and are non tender. Skin: No rashes or lesions. [ ] DIFFERENTIAL DIAGNOSIS: After history and physical exam differential diagnosis was considered for headache migraine headache tension cluster headache (JUSTINO GORDON MD) Medical Decision Making ED Course/Re-evaluation ED Course Care assumed at shift change from Dr. Gordon patient was medicated with Toradol 60 mg IM and Imitrex intranasal. Re-evaluation 05/08/2019 6:18:59 pm she was reevaluated. Her headache is unchanged. She still complaining of significant headache despite Toradol 60 mg IM and I'm Imitrex by mouth. I spoke with the patient at length, seeing if she had a ride. She does have a ride home. She did not drive herself here. She is given Benadryl 25 mg and Reglan 10 mg and Decadron 8 mg by mouth. Patient was reevaluated after 20 minutes. She noted improvement. She'll be discharged home with Imitrex and Phenergan. Patient advised to follow-up with her primary care doctor for further treatment of her migraine headaches. Decision to Disposition Date: May 08, 2019 Decision to Disposition Time: 18:13 (LESLEE MENCHACA DO) Depart Departure Latest Vital Signs Vital Signs Date Time Temp Pulse Resp B/P (MAP) Pulse Ox O2 Delivery O2 Flow Rate FiO2 05/08/19 19:00 126/76 (93) 05/08/19 18:46 76 92 05/08/19 16:06 99.6 12 Room Air (LESLEE MENCHACA DO) Impression: Primary Impression: Headache Condition: Improved Disposition: HOME OR SELF-CARE Referrals: ADÁN LOU (PCP) New Scripts Sumatriptan Succinate (IMITREX) 50 Mg Tablet 50 MG PO ONCE PRN for HEADACHE, #6 Prov: LESLEE MENCHACA DO 05/08/19 Promethazine Hcl (PROMETHAZINE HCL) 25 Mg Tablet 25 MG PO Q4H PRN for NAUSEA/VOMITING, #14 TAB Prov: LESLEE MENCHACA DO 05/08/19 Patient Instructions: Acute Headache (ED) Additional Instructions: Follow-up with your primary care for further treatment of your headaches Problem Qualifiers Primary Impression: Headache Headache type: unspecified Headache chronicity pattern: acute headache Intractability: intractable Qualified Codes: R51 - Headache JUSTINO GORDON MD May 08, 2019 17:13 LESLEE MENCHACA DO May 08, 2019 18:18
[2019-05-08] MEDS ORDERED: METOCLOPRAMIDE 10 MG TAB PO ONE (18:20)
[2019-05-08] MEDS ORDERED: DEXAMETHASONE 4 MG TAB PO ONE (18:20)
[2019-05-08] MEDS ORDERED: diphenhydrAMINE 25 MG CAP PO ONE (18:20)
[2019-05-08] MEDS ORDERED: SUMA50TA34 PO (18:49)
[2019-05-08] MEDS ORDERED: PROM-110 PO (18:49)
[2019-05-08 19:00] VITALS: BP 126/76
== END 2019-05-08 19:02 | disposition home or self-care (01) ==
LOC: ER 17:08
DX: R51 Headache (principal)
CPT/HCPCS: 96372; 99283; J1885; J3030; J8540; J8597; Q0163

== ENCOUNTER 2019-06-14 19:19 | Emergency (ER) | payer MEDICAID ==
[2018-08-21 06:00] VITALS: Wt 89.8 kg
[~2019-06-14 19:19] MED LIST changes: +BUSP7.5T7; +HYDR50CA48 PO; +QUET25TA; +SUMA50TA34 PO
--- NOTE | 2019-06-14 19:33 | ER Report ---
History and Physical Time Seen By MD: 19:29 Hx. of Stated Complaint: PATIENT STATES SHE JUST FOUND OUT SHE WAS LAST WEEK, SHE IS 9WEEKS . SHE HAS HAD SEVERE NAUSEA AND VOMITING FOR THE LAST 3DAYS. PATIENT HAVING LOWER ABDOMINAL PAIN "CRAMPING" AND LOWER BACK PAIN WELL. (NELSON PETERS) HPI/ROS CHIEF COMPLAINT: nausea and vomiting HISTORY OF PRESENT ILLNESS: 29 year old female presents with nausea and vomiting. She reports this started 3 days ago. She is 9 weeks . She reports she has had two previous children; she had a lot of nausea and vomiting with her first child, but not her second. She reports she can't keep anything down. She has taken zofran which helped a bit at first, but no longer helps. She can't keep down reglan. Reports she hasn't eaten or drank much the past 3 days. Reports last bowel movement was 3 days ago. Has associated symptoms of headache, dizziness, lower abdominal cramping. Denies vaginal bleeding or spotting. Denies fevers. REVIEW OF SYSTEMS: Constitutional: No fevers. Decreased appetite. HENT: Mild generalized headache. Respiratory: No cough, no dyspnea. Cardiovascular: No chest pain, no palpitations. Gastrointestinal: Nausea and vomiting. Lower abdominal cramping. Genitourinary: Denies frequency, urgency, or burning on urination. Denies vaginal bleeding or spotting. Musculoskeletal: No back pain. (NELSON PETERS) Allergies: Coded Allergies: oxycodone (Verified Adverse Reaction, Mild, NAUSEA/VOMITING, 06/14/19) Home Meds Active Scripts Promethazine Hcl (PROMETHAZINE HCL) 25 Mg Tablet, 25 MG PO Q8H PRN for NAUSEA/VOMITING, #20 TAB 0 Refills Prov:SUKI GORDON MD 06/14/19 Ondansetron 4 Mg Odt (ONDANSETRON 4 MG ODT) 4 Mg Tab.rapdis, 4 MG PO Q6H PRN for NAUSEA/VOMITING, #20 TAB 0 Refills Prov:SUKI GORDON MD 06/14/19 Reported Medications Hydroxyzine Pamoate (HYDROXYZINE PAMOATE) 50 Mg Capsule 05/08/19 Escitalopram Oxalate (LEXAPRO) 20 Mg Tablet, 10 MG PO QDAY, TAB 08/07/18 Discontinued Reported Medications Quetiapine Fumarate (QUETIAPINE FUMARATE) 25 Mg Tablet 05/08/19 Buspirone Hcl (BUSPIRONE HCL) 7.5 Mg Tablet 05/08/19 Discontinued Scripts Sumatriptan Succinate (IMITREX) 50 Mg Tablet, 50 MG PO ONCE PRN for HEADACHE, #6 Prov:LESLEE MENCHACA DO 05/08/19 Promethazine Hcl (PROMETHAZINE HCL) 25 Mg Tablet, 25 MG PO Q4H PRN for NAUSEA/VOMITING, #14 TAB Prov:LESLEE MENCHACA DO 05/08/19 Past Medical/Surgical History Past medical hx significant for uterine infection after second , depression/anxiety. Past surgical hx of in 2008 and 2018, left ankle surgery. (NELSON PETERS) Hx Smoking: No Smoking Status: Never Smoker Exposure to Second Hand Smoke?: No Hx Substance Use Disorder: No Hx Alcohol Use: Yes (rare) (NELSON PETERS) Constitutional Vital Sign - Last 24 Hours 06/14/19 06/14/19 06/14/19 06/14/19 19:22 19:34 19:49 20:00 Temp 97.5 Pulse 106 101 99 Resp 20 B/P (MAP) 136/73 111/69 (83) Pulse Ox 91 91 87 O2 Delivery Room Air 06/14/19 06/14/19 06/14/19 06/14/19 20:04 20:19 20:30 20:34 Pulse 99 94 93 B/P (MAP) 115/67 (83) Pulse Ox 90 91 96 06/14/19 06/14/19 06/14/19 06/15/19 20:49 21:00 21:04 00:11 Pulse 89 93 92 B/P (MAP) 94/76 (82) 115/74 (88) Pulse Ox 91 93 92 Intake and Output 06/14/19 06/14/19 06/15/19 15:03 23:03 07:03 Intake Total 2000 ml 1000 ml Balance 2000 ml 1000 ml (SUKI GORDON MD) Physical Exam General Appearance: The patient is alert, has no immediate need for airway protection and no current signs of toxicity. Eyes: Pupils equal and round no injection. Respiratory: Chest is non tender, lungs are clear to auscultation. Cardiac: regular rate and rhythm Gastrointestinal: Lower abdominal pain with palpation. Abdomen is soft, no masses, bowel sounds normal. Musculoskeletal: Neck: Neck is supple and non tender. Extremities have full range of motion and are non tender. Skin: No rashes or lesions. DIFFERENTIAL DIAGNOSIS: After history and physical exam differential diagnosis was considered for hyperemesis gravidarum, UTI, gastroenteritis. (NELSON PETERS) Medical Decision Making Data Points Result Diagram: 06/14/19192906/14/191929 Laboratory Hematology Test 06/14/19 19:30 White Blood Count 9.7 k/uL (4.5-11.0) Red Blood Count 4.42 M/uL (4.17-5.56) Hemoglobin 14.0 g/dL (12.0-16.0) Hematocrit 40.6 % (34.0-47.0) Mean Corpuscular Volume 91.8 fL (80.0-96.0) Mean Corpuscular Hemoglobin 31.7 pg (26.0-33.0) Mean Corpuscular Hemoglobin Concent 34.5 g/dL (32.0-36.0) Red Cell Distribution Width 13.6 % (11.5-14.5) Platelet Count 349 K/uL (150-450) Mean Platelet Volume 9.5 fL (7.2-11.1) Neutrophils (%) (Auto) 67.9 % (39.4-72.5) Lymphocytes (%) (Auto) 23.6 % (17.6-49.6) Monocytes (%) (Auto) 7.4 % (4.1-12.4) Eosinophils (%) (Auto) 0.8 % (0.4-6.7) Basophils (%) (Auto) 0.3 % (0.3-1.4) Nucleated RBC Relative Count (auto) 0.2 /100WBC Neutrophils # (Auto) 6.6 K/uL (2.0-7.4) Lymphocytes # (Auto) 2.3 K/uL (1.3-3.6) Monocytes # (Auto) 0.7 K/uL (0.3-1.0) Eosinophils # (Auto) 0.1 K/uL (0.0-0.5) Basophils # (Auto) 0.0 K/uL (0.0-0.1) Nucleated RBC Absolute Count (auto) 0.02 K/uL Chemistry Test 06/14/19 19:30 Sodium Level 136 mmol/L (137-145) Potassium Level 3.7 mmol/L (3.5-5.0) Chloride Level 103 mmol/L (98-107) Carbon Dioxide Level 21 mmol/L (22-31) Blood Urea Nitrogen 8 mg/dl (7-18) Creatinine 0.60 mg/dl (0.52-1.04) Glomerular Filtration Rate Calc > 60.0 Random Glucose 94 mg/dl (75-110) Calcium Level 9.9 mg/dl (8.4-10.2) Total Bilirubin 0.5 mg/dl (0.2-1.3) Aspartate Amino Transf (AST/SGOT) 26 U/L (0-35) Alanine Aminotransferase (ALT/SGPT) 30 U/L (0-56) Alkaline Phosphatase 107 U/L (0-126) Total Protein 7.4 g/dl (6.3-8.2) Albumin 4.1 g/dl (3.5-5.0) Urinalysis Test 06/14/19 22:06 Urine Color Yellow Urine Clarity Slightly-cloudy Urine pH 5.0 pH (4.8-9.5) Urine Specific [place] 1.021 Urine Protein Negative mg/dL (NEGATIVE) Urine Glucose (UA) Negative mg/dL (NEGATIVE) Urine Ketones 20 mg/dL (NEGATIVE) Urine Blood Negative (NEGATIVE) Urine Nitrite Negative (NEGATIVE) Urine Bilirubin Negative (NEGATIVE) Urine Urobilinogen Negative mg/dL (0.2-1.9) Urine Leukocyte Esterase Moderate (NEGATIVE) Urine RBC 2 /HPF (0-2/HPF) Urine WBC 1 /HPF (0-5/HPF) Urine Squamous Epithelial Cells Many /LPF (</=FEW) Urine Transitional Epithelial Cells Few /LPF (NONE-FEW) Urine Bacteria Negative /HPF (NONE-FEW) Urine Mucus Few /HPF (NONE-FEW) (SUKI GORDON MD) ED Course/Re-evaluation ED Course Upon arrival to the ED, patient admitted to an exam room, hx and physical obtained, differentials considered. Patient presents with nausea and vomiting. She reports this started 3 days ago. She is 9 weeks . She reports she has had two previous children; she had a lot of nausea and vomiting with her first child, but not her second. She reports she can't keep anything down. She has taken zofran which helped a bit at first, but no longer helps. She can't keep down reglan. Reports she hasn't eaten or drank much the past 3 days. Reports last bowel movement was 3 days ago. Has associated symptoms of headache, dizziness, lower abdominal cramping. Denies vaginal bleeding or spotting. Denies fevers. Denies burning, frequency, or urgency with urination. On exam, heart rate and rhythm regular, lungs clear to auscultation. She has lower abdominal pain with palpation. IV started. CBC, CMP, and UA obtained. 1L NS infused. 4mg zofran given IV. This did help with her nausea initially, but it did return, so an additional 4mg zofran given. A second liter of NS was given. Labs are unremarkable. On her CMP, BUN was 8 and creatinine was 0.6; electrolytes were stable. 2mg morphine given for her headache. Turned Over The care of the patient was turned over to Dr. Gordon. Nelson Peters [facility] I authorize my typed signature that I authenticated this report. (NELSON PETERS [facility]) Clinical Indication for ER IV: Hydration, IV Access ED Course I assumed care of this patient at shift change from Nelson Peters. Patient has hyperemesis gravidarum. She was finally able to urinate after 2 liters of normal saline. This showed dehydration, but no signs of urinary tract infection. She is feeling a little more nauseated after two doses of Zofran earlier. She was given a dose of Phenergan 12.5mg IV. A 3rd liter of fluid given. Home with Phenergan and Zofran as needed. Decision to Disposition Date: Jun 14, 2019 Decision to Disposition Time: 23:08 (SUKI GORDON MD) Depart Departure Latest Vital Signs Vital Signs Date Time Temp Pulse Resp B/P (MAP) Pulse Ox O2 Delivery O2 Flow Rate FiO2 06/15/19 00:11 92 115/74 (88) 92 06/14/19 19:22 97.5 20 Room Air (SUKI GORDON MD) Impression: Primary Impression: Hyperemesis gravidarum Condition: Improved Disposition: HOME OR SELF-CARE Referrals: ADÁN LOU (PCP) New Scripts Promethazine Hcl (PROMETHAZINE HCL) 25 Mg Tablet 25 MG PO Q8H PRN for NAUSEA/VOMITING, #20 TAB 0 Refills Prov: SUKI GORDON MD 06/14/19 Ondansetron 4 Mg Odt (ONDANSETRON 4 MG ODT) 4 Mg Tab.rapdis 4 MG PO Q6H PRN for NAUSEA/VOMITING, #20 TAB 0 Refills Prov: SUKI GORDON MD 06/14/19 Patient Instructions: Hyperemesis Gravidarum (ED) Additional Instructions: Take Zofran 4mg, one every 6 hours as needed for nausea or vomiting. Phenergan 25mg, one every 8 hours as needed for nausea or vomiting. NELSON PETERS Jun 14, 2019 19:33 SUKI GORDON MD Jun 14, 2019 23:16
[2019-06-14] MEDS ORDERED: ONDANSETRON 4 MG/2 ML VIAL IVP ONE ×2 (19:45→20:55)
[2019-06-14] MEDS ORDERED: NS(*) 0.9% 1000 ML BAG 1,000 ML IV ONE ×3 (19:45→23:10)
[2019-06-14 20:25] LABS: PLATELET COUNT, AUTOMATED 349 K/uL (150-450)
[2019-06-14] MEDS ORDERED: MORPHINE 2 MG/ML SYR IVP ONE (21:10)
[2019-06-14] MEDS ORDERED: PROMETHAZINE 25 MG/ML 1 ML AMP IVP ONE (23:00)
[2019-06-14] MEDS ORDERED: ONDA4TAB9 PO (23:16)
[2019-06-14] MEDS ORDERED: PROM-110 PO (23:16)
[2019-06-15] MEDS ORDERED: ONDANSETRON 4 MG ODT TH SL ONE (00:05)
[2019-06-15] MEDS ORDERED: PROMETHAZINE HCL 25 MG TAB TH 2 TAB/BOTTLE PO ONE (00:05)
[2019-06-15 00:11] VITALS: BP 115/74
== END 2019-06-15 00:16 | disposition home or self-care (01) ==
LOC: ER 19:28
DX: O21.0 Mild hyperemesis gravidarum (principal); Z3A.09 9 weeks gestation of pregnancy
CPT/HCPCS: 81001; 85025; 96361; 96374; 96375; 96376; 99284; J2270; J2405; J2550; J7030; S0119; 82040; 82247; 82310; 82374; 82435; 82565; 82947; 84075; 84132; 84155; 84295; 84450; 84460; 84520

== ENCOUNTER 2019-06-24 14:21 | Emergency (ER) | payer MEDICAID ==
[2018-08-21 06:00] VITALS: Wt 90.7 kg
[~2019-06-24 14:21] MED LIST changes: +HYDR50CA48; -HYDR50CA48 PO; +ONDA4TAB9 PO
--- NOTE | 2019-06-24 14:24 | ER Report ---
History and Physical Time Seen By MD: 14:19 HPI/ROS CHIEF COMPLAINT: Right upper and lower extremity numbness since Sunday HISTORY OF PRESENT ILLNESS: Patient is a 29-year-old female here with complaints of right upper and lower extremity numbness since Sunday. Patient is 13 weeks gestational. Patient does recall having recent history of hyperemesis gravidarum but is doing much better on Zofran. Denies headaches, blurry vision, chest pain, shortness breath, fevers or chills. Patient is afebrile, hemodynamically stable at time of evaluation. REVIEW OF SYSTEMS: Constitutional: No fever, no chills. Eyes: No discharge. ENT: No sore throat. Cardiovascular: No chest pain, no palpitations. Respiratory: No cough, no shortness of breath. Gastrointestinal: No abdominal pain, no vomiting. Genitourinary: No hematuria. Musculoskeletal: No back pain. Skin: No rashes. Neurological: No headache. + Right upper and lower extremity numbness, motor strength intact Allergies: Coded Allergies: oxycodone (Verified Adverse Reaction, Mild, NAUSEA/VOMITING, 06/24/19) Home Meds Active Scripts Promethazine Hcl (PROMETHAZINE HCL) 25 Mg Tablet, 25 MG PO Q8H PRN for NAUSEA/VOMITING, #20 TAB 0 Refills Prov:SUKI GORDON MD 06/14/19 Ondansetron 4 Mg Odt (ONDANSETRON 4 MG ODT) 4 Mg Tab.rapdis, 4 MG PO Q6H PRN for NAUSEA/VOMITING, #20 TAB 0 Refills Prov:SUKI GORDON MD 06/14/19 Reported Medications Hydroxyzine Pamoate (HYDROXYZINE PAMOATE) 50 Mg Capsule 05/08/19 Escitalopram Oxalate (LEXAPRO) 20 Mg Tablet, 10 MG PO QDAY, TAB 08/07/18 Hx Smoking: No Smoking Status: Never Smoker Exposure to Second Hand Smoke?: No Hx Substance Use Disorder: No Hx Alcohol Use: Yes (rare) Constitutional Vital Sign - Last 24 Hours 06/24/19 14:26 Temp 98.7 Pulse 100 Resp 20 B/P (MAP) 131/79 Pulse Ox 92 O2 Delivery Room Air Physical Exam General Appearance: The patient is alert, has no immediate need for airway protection and no signs of toxicity. No acute distress Eyes: Pupils equal and round no pallor or injection. ENT, Mouth: Mucous membranes are moist. Respiratory: There are no retractions, lungs are clear to auscultation. Cardiovascular: Regular rate and rhythm. Gastrointestinal: Abdomen is soft and non tender, no masses, bowel sounds no rmal. Neurological: No appreciable focal neurological deficits, cranial nerves intact, motor strength equal in all extremities. Skin: Warm and dry, no rashes. Musculoskeletal: Neck is supple non tender. Extremities are nontender, nonswollen and have full range of motion. DIFFERENTIAL DIAGNOSIS: After history and physical exam differential diagnosis was considered for CVA, dehydration, electrolyte abnormality, nerve impingement Medical Decision Making Data Points Result Diagram: 06/24/19 1436 06/24/19 1436 Laboratory Hematology Test 06/24/19 14:36 White Blood Count 10.7 k/uL (4.5-11.0) Red Blood Count 4.33 M/uL (4.17-5.56) Hemoglobin 13.6 g/dL (12.0-16.0) Hematocrit 40.1 % (34.0-47.0) Mean Corpuscular Volume 92.5 fL (80.0-96.0) Mean Corpuscular Hemoglobin 31.4 pg (26.0-33.0) Mean Corpuscular Hemoglobin Concent 34.0 g/dL (32.0-36.0) Red Cell Distribution Width 13.8 % (11.5-14.5) Platelet Count 332 K/uL (150-450) Mean Platelet Volume 8.6 fL (7.2-11.1) Neutrophils (%) (Auto) 74.0 % (39.4-72.5) H Lymphocytes (%) (Auto) 18.9 % (17.6-49.6) Monocytes (%) (Auto) 6.2 % (4.1-12.4) Eosinophils (%) (Auto) 0.5 % (0.4-6.7) Basophils (%) (Auto) 0.4 % (0.3-1.4) Nucleated RBC Relative Count (auto) 0.0 /100WBC Neutrophils # (Auto) 7.9 K/uL (2.0-7.4) H Lymphocytes # (Auto) 2.0 K/uL (1.3-3.6) Monocytes # (Auto) 0.7 K/uL (0.3-1.0) Eosinophils # (Auto) 0.0 K/uL (0.0-0.5) Basophils # (Auto) 0.0 K/uL (0.0-0.1) Nucleated RBC Absolute Count (auto) 0.00 K/uL Chemistry Test 06/24/19 14:36 06/24/19 15:04 Sodium Level 135 mmol/L (137-145) Potassium Level 3.7 mmol/L (3.5-5.0) Chloride Level 102 mmol/L (98-107) Carbon Dioxide Level 23 mmol/L (22-31) Blood Urea Nitrogen 6 mg/dl (7-18) Creatinine 0.60 mg/dl (0.52-1.04) Glomerular Filtration Rate Calc > 60.0 Random Glucose 90 mg/dl (75-110) Calcium Level 9.6 mg/dl (8.4-10.2) Magnesium Level 1.7 mg/dl (1.7-2.2) Total Bilirubin 0.3 mg/dl (0.2-1.3) Aspartate Amino Transf (AST/SGOT) 22 U/L (0-35) Alanine Aminotransferase (ALT/SGPT) 34 U/L (0-56) Alkaline Phosphatase 114 U/L (0-126) Troponin I < 0.012 ng/ml Total Protein 7.6 g/dl (6.3-8.2) Albumin 4.1 g/dl (3.5-5.0) Thyroid Stimulating Hormone (TSH) 0.93 uIU/ml (0.46-4.68) Human Chorionic Gonadotropin, Quant 27758 mIU/ml Whole Blood Glucose 88 mg/DL (75-110) Urinalysis Test 06/24/19 14:41 Urine Color Yellow Urine Clarity Cloudy Urine pH 6.0 pH (4.8-9.5) Urine Specific [place] 1.028 Urine Protein 30 mg/dL (NEGATIVE) Urine Glucose (UA) Negative mg/dL (NEGATIVE) Urine Ketones Trace mg/dL (NEGATIVE) Urine Blood Negative (NEGATIVE) Urine Nitrite Negative (NEGATIVE) Urine Bilirubin Negative (NEGATIVE) Urine Urobilinogen Negative mg/dL (0.2-1.9) Urine Leukocyte Esterase Large (NEGATIVE) Urine RBC 2 /HPF (0-2/HPF) Urine WBC 12 /HPF (0-5/HPF) Urine Squamous Epithelial Cells Many /LPF (</=FEW) Urine Bacteria Negative /HPF (NONE-FEW) Urine Mucus Few /HPF (NONE-FEW) EKG/Imaging Imaging PATIENT NAME: Kenneth Quiñonez : 1990 MR: [id number] V: [id number] EXAM DATE: [id number] ORDERING PHYSICIAN: KVNG TONY TECHNOLOGIST: Location: [facility] [place] Patient: Kenneth Quiñonez : 1990 Visit/Account:[id number] Date of Sevice: 06/24/2019 EXAMINATION: Head CT without intravenous contrast HISTORY: Right-sided numbness. COMPARISON: 02/07/2018. TECHNIQUE: Contiguous axial images were obtained from the skull base to the vertex without intravenous contrast. Sagittal and coronal reformatted images are also submitted. One of the following dose optimization techniques was utilized in the performance of this exam: Automated exposure control; adjustment of the mA and/or kV according to the patient's size; or use of an iterative rec onstruction technique. Specific details can be referenced in the facility's radiology CT exam operational policy. FINDINGS: Brain and intracranial structures: Ventricles, sulci, and cisterns are normal in size. Osborne-white matter differentiation is maintained. There is a small subtle hypoattenuating region in the left shepherd radiata lateral to the anterior left thalamus. No midline shift, acute hemorrhage, or mass. Calvarium / scalp: Negative. Skull base / visualized face: Negative. Visualized sinuses / orbits: Negative. IMPRESSION: There is a small subtle hypoattenuating region in the white matter lateral to the left thalamus. The white matter in this region can be normally mildly hypoattenuating, however, given the asymmetry compared with the contralateral side and that no hypoattenuation is seen in the white matter in this region on the previous examination and the patient's right-sided symptoms, other potential etiologies such as ischemia or demyelinating disease are possibilities. Recommend MRI of the brain for further evaluation of this. These findings were discussed with KVNG TONY at 06/24/2019 4:04 PM. Report Dictated By: Alon Mcduffie MD at 06/24/2019 3:52 PM PATIENT NAME: Kenneth Quiñonez : 1990 MR: [id number] V: [id number] EXAM DATE: [id number] ORDERING PHYSICIAN: KVNG TONY TECHNOLOGIST: Location: [facility] [place] Patient: Kenneth Quiñonez : 1990 Visit/Account:[id number] Date of Sevice: 06/24/2019 EXAMINATION: Brain MRI without IV contrast HISTORY: Left white matter lesion, right upper extremity/right lower extremity paresthesias since Sunday. COMPARISON: CT of the head from the same day. TECHNIQUE: Multi-planar, multi-sequence brain MRI was performed without IV contrast administration. FINDINGS: Brain and other intracranial structures: There are approximately 10 lesions scattered within the supratentorial white matter, located within the periventricular, deep, and peripheral white matter. There is also a T2 hyperintense lesion in the right cerebellar hemisphere. Some of the white matter lesions do of high signal on the diffusion-weighted imaging, but no low signal on the ADC map. No midline shift, mass, hemorrhage, or acute infarct. Calvarium / scalp: Negative. Skull base: Negative. Visualized sinuses / orbits: Mild mucosal thickening in the maxillary sinuses. IMPRESSION: There are multiple T2 hyperintense lesions in the white matter. The distribution and morphology of these lesions is most consistent with multiple sclerosis. These findings were discussed with KVNG TONY at 06/24/2019 5:17 PM. Report Dictated By: Alon Mcduffie MD at 06/24/2019 5:07 PM Report E-Signed By: Alon Mcduffie MD at 06/24/2019 5:17 PM ED Course/Re-evaluation ED Course Patient is a 29-year-old female 13 weeks gestational here with complaints of right upper and right lower extremity numbness, motor weakness of the right distal extremity the past several days. Labs were remarkable for an asymptomatic bacteriuria which will be treated with Keflex 500 mg twice a day [address] imaging initially showed a lesion in the left when mattered deep prompting MRI imaging which showed multiple white matter lesions consistent with multiple sclerosis.. Patient was discussed with Dr. Gutierrez who is neurology at [facility] who recommended IV Solu-Medrol 1 g daily for 5 days. 1st dose was given in the emergency department. Patient contact information was given to neurology who will follow up with her. Patient opted for outpatient treatment. I discussed the patient with Dr. Vogel with [facility] who felt that 13 weeks gestational would be acceptable at her gestational age. I discussed this with the patient and she voiced understanding. Patient was hemodynamically stable at time of discharge. Patient was given a prescription for Solu-Medrol to be administered at [facility]. Patient was updated regarding these findings and voiced understanding. Return precautions provided. Close PCP follow-up recommended. Decision to Disposition Date: Jun 24, 2019 Decision to Disposition Time: 18:19 Depart Departure Latest Vital Signs Vital Signs Date Time Temp Pulse Resp B/P (MAP) Pulse Ox O2 Delivery O2 Flow Rate FiO2 06/24/19 14:26 98.7 100 20 131/79 92 Room Air Impression: Primary Impression: Multiple sclerosis Condition: Improved Disposition: HOME OR SELF-CARE Referrals: ADÁN LOU (PCP) Patient Instructions: Multiple Sclerosis (DC) Additional Instructions: You were diagnosed today with multiple sclerosis. Your contact information was given to neurology and will be contacting you within the next 24 hours. You were given 1 dose of 1000 mg of Solu-Medrol. You will be arranged to have a dose tomorrow and then subsequent 3 doses for a total of 5 doses course. Please follow-up with your primary care provider in the next 24 hours for repeat evaluation. Please return promptly if you develop fevers, chills, worsening symptoms, inability to keep down food or fluids. KVNG TONY DO Jun 24, 2019 14:24
[2019-06-24 14:26] VITALS: BP 131/79
[2019-06-24] MEDS ORDERED: NS(*) 0.9% 1000 ML BAG 1,000 ML IV ONE (14:36)
[2019-06-24 14:47] LABS: PLATELET COUNT, AUTOMATED 332 K/uL (150-450)
--- NOTE | 2019-06-24 16:18 | RADIOLOGY IMAGING REPORT ---
FACILITY: [facility] [place] PATIENT NAME: Kenneth Quiñonez : 1990 MR: [id number] V: [id number] EXAM DATE: ORDERING PHYSICIAN: KVNG TONY TECHNOLOGIST: Location: [facility] Patient: Kenneth Quiñonez : 1990 Visit/Account:[id number] Date of Sevice: 06/24/2019 EXAMINATION: Head CT without intravenous contrast HISTORY: Right-sided numbness. COMPARISON: 02/07/2018. TECHNIQUE: Contiguous axial images were obtained from the skull base to the vertex without intraven ous contrast. Sagittal and coronal reformatted images are also submitted. One of the following dose optimization techniques was utilized in the performance of this exam: Autom ated exposure control; adjustment of the mA and/or kV according to the patient's size; or use of an i terative reconstruction technique. Specific details can be referenced in the facility's radiology C T exam operational policy. FINDINGS: Brain and intracranial structures: Ventricles, sulci, and cisterns are normal in size. Osborne-white ma tter differentiation is maintained. There is a small subtle hypoattenuating region in the left shepherd radiata lateral to the anterior left thalamus. No midline shift, acute hemorrhage, or mass. Calvarium / scalp: Negative. Skull base / visualized face: Negative. Visualized sinuses / orbits: Negative. IMPRESSION: There is a small subtle hypoattenuating region in the white matter lateral to the left thalamus. The white matter in this region can be normally mildly hypoattenuating, however, given the asymmetry comp ared with the contralateral side and that no hypoattenuation is seen in the white matter in this davidson on on the previous examination and the patient's right-sided symptoms, other potential etiologies suc h as ischemia or demyelinating disease are possibilities. Recommend MRI of the brain for further eval uation of this. These findings were discussed with KVNG TONY at 06/24/2019 4:04 PM. Report Dictated By: Alon Mcduffie MD at 06/24/2019 3:52 PM Report E-Signed By: Alon Mcduffie MD at 06/24/2019 4:10 PM WSN:[id number]
--- NOTE | 2019-06-24 17:25 | RADIOLOGY IMAGING REPORT ---
FACILITY: [facility] PATIENT NAME: Kenneth Quiñonez : 1990 MR: [id number] V: [id number] EXAM DATE: ORDERING PHYSICIAN: KVNG TONY TECHNOLOGIST: Location: [facility] Patient: Kenneth Quiñonez : 1990 Visit/Account:[id number] Date of Sevice: 06/24/2019 EXAMINATION: Brain MRI without IV contrast HISTORY: Left white matter lesion, right upper extremity/right lower extremity paresthesias since S unday. COMPARISON: CT of the head from the same day. TECHNIQUE: Multi-planar, multi-sequence brain MRI was performed without IV contrast administration. FINDINGS: Brain and other intracranial structures: There are approximately 10 lesions scattered within the sup ratentorial white matter, located within the periventricular, deep, and peripheral white matter. Ther e is also a T2 hyperintense lesion in the right cerebellar hemisphere. Some of the white matter lesio ns do of high signal on the diffusion-weighted imaging, but no low signal on the ADC map. No midline shift, mass, hemorrhage, or acute infarct. Calvarium / scalp: Negative. Skull base: Negative. Visualized sinuses / orbits: Mild mucosal thickening in the maxillary sinuses. IMPRESSION: There are multiple T2 hyperintense lesions in the white matter. The distribution and morphology of th beth lesions is most consistent with multiple sclerosis. These findings were discussed with KVNG TONY at 06/24/2019 5:17 PM. Report Dictated By: Alon Mcduffie MD at 06/24/2019 5:07 PM Report E-Signed By: Alon Mcduffie MD at 06/24/2019 5:17 PM WSN:[id number]
[2019-06-24] MEDS ORDERED: methylPREDNIS SUC* 1000 MG/8ML 1,000 MG in NS(*) 0.9% 250 ML BAG 250 ML IVPB ONE (18:05)
== END 2019-06-24 19:37 | disposition home or self-care (01) ==
LOC: ER 14:37
DX: O99.351 Diseases of the nervous system complicating pregnancy, first trimester (principal); G35 Multiple sclerosis
CPT/HCPCS: 36416; 70450; 81001; 82803; 82948; 83735; 84443; 84484; 84702; 85025; 87088; 96361; 96365; 99284; J2930; J7030; J7050; 70551; 82040; 82247; 82310; 82374; 82435; 82565; 82947; 84075; 84132; 84155; 84295; 84450; 84460; 84520

== ENCOUNTER 2019-06-26 09:32 | Observation (INO) | payer MEDICAID ==
[~2019-06-26] VITALS: Ht 162.6 cm; Wt 94.0 kg
[~2019-06-26 09:32] MED LIST changes: -HYDR50CA48; +HYDR50CA48 PO
--- NOTE | 2019-06-26 09:41 | ER Report ---
History and Physical Time Seen By : 09:37 HPI/ROS CHIEF COMPLAINT: Stomach pain HISTORY OF PRESENT ILLNESS: Patient is a 29-year-old female who is approximately 13 weeks by gestational age was actually seen on June 24 secondary to some right and lower extremity numbness and some weakness of the right distal extremity of the past several days. During her visit on the she had a CT scan and then an MRI which was consistent with multiple sclerosis. She was started on Solu- Medrol 1 g to be given over 5 days as recommended by the neurologist from [facility]. She presents to the emergency department today with complaint of "stomach pain", which she describes as a sharp shooting pain primarily on the left abdomen and more of a burning sensation in the central abdomen. She denies urinary or bowel changes, other than some constipation which she contributes to vitamins. She reports two recent falls but denies falling on the left side or injury that she is aware of. REVIEW OF SYSTEMS: Constitutional: No fever, no chills. Eyes: No discharge. ENT: No sore throat. Cardiovascular: No chest pain, no palpitations. Respiratory: No cough, admits to shortness of breath with walking. Gastrointestinal: admits to left sided abdominal pain, no vomiting, but admits to nausea. Genitourinary: No hematuria. Musculoskeletal: history of intermittent left low back pain since prior Skin: No rashes on the abdomen Neurological: No headache Allergies: Coded Allergies: oxycodone (Verified Adverse Reaction, Mild, NAUSEA/VOMITING, 06/26/19) Home Meds Active Scripts Docusate Sodium (COLACE) 100 Mg Capsule, 100 MG PO BID, #30 CAPSULE Prov:TYRONE GRIGGS 06/27/19 Polyethylene Glycol 3350 (MIRALAX) 17 Gm Powd.pack, 17 GM PO QDAY, #10 PKT Prov:TYRONE GRIGGS 06/27/19 Acetaminophen (TYLENOL EXTRA STRENGTH) 500 Mg Tablet, 1000 MG PO Q8H PRN for PAIN, #30 TAB Prov:TYRONE GRIGGS 06/27/19 Ondansetron 4 Mg Odt (ONDANSETRON 4 MG ODT) 4 Mg Tab.rapdis, 4 MG PO Q6H PRN for NAUSEA/VOMITING, #20 TAB 0 Refills Prov:SUKI GORDON MD 06/14/19 Reported Medications Vits W-Ca,Fe,Fa(<1MG) ( VITAMINS) 1 Each Tablet, 1 EACH PO DAILY, TAB 06/26/19 Hydroxyzine Pamoate (HYDROXYZINE PAMOATE) 50 Mg Capsule, 50 MG PO PRN for Anxiety 05/08/19 Escitalopram Oxalate (LEXAPRO) 20 Mg Tablet, 10 MG PO QDAY, TAB 08/07/18 Discontinued Scripts Promethazine Hcl (PROMETHAZINE HCL) 25 Mg Tablet, 25 MG PO Q8H PRN for NAUSEA/VOMITING, #20 TAB 0 Refills Prov:SUKI GORDON MD 06/14/19 Past Medical/Surgical History Hyperemesis gravidarum with this , recent diagnosis of multiple sclerosis Hx Smoking: No Smoking Status: Never Smoker Exposure to Second Hand Smoke?: No Hx Substance Use Disorder: No Hx Alcohol Use: Yes (rare) Constitutional Physical Exam General Appearance: The patient is alert, has no immediate need for airway protection and no signs of toxicity. Mildly anxious and tearful Eyes: Pupils equal and round no pallor or injection. ENT, Mouth: Mucous membranes are moist. Respiratory: There are no retractions, lungs are clear to auscultation. Cardiovascular: Regular rate and rhythm. Gastrointestinal: Abdomen is soft, no masses, bowel sounds normal. Significantly tender to the left upper quadrant with some tenderness to the mid and lower abdomen as well. 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 Patient is decreased sensation on the right side slight right-sided facial droop. Intact but slightly decreased two point discrimination on the right Skin: Warm and dry, no abdominal rashes. Musculoskeletal: Neck is supple non tender. Extremities are nontender, nonswollen and have full range of motion. Medical Decision Making Data Points Laboratory Hematology Test 06/26/19 11:09 White Blood Count 17.1 k/uL (4.5-11.0) H Red Blood Count 3.97 M/uL (4.17-5.56) L Hemoglobin 12.3 g/dL (12.0-16.0) Hematocrit 37.5 % (34.0-47.0) Mean Corpuscular Volume 94.5 fL (80.0-96.0) Mean Corpuscular Hemoglobin 30.9 pg (26.0-33.0) Mean Corpuscular Hemoglobin Concent 32.8 g/dL (32.0-36.0) Red Cell Distribution Width 14.1 % (11.5-14.5) Platelet Count 316 K/uL (150-450) Mean Platelet Volume 8.7 fL (7.2-11.1) Neutrophils (%) (Auto) 84.6 % (39.4-72.5) H Lymphocytes (%) (Auto) 8.8 % (17.6-49.6) L Monocytes (%) (Auto) 6.3 % (4.1-12.4) Eosinophils (%) (Auto) 0.0 % (0.4-6.7) L Basophils (%) (Auto) 0.3 % (0.3-1.4) Nucleated RBC Relative Count (auto) 0.0 /100WBC Neutrophils # (Auto) 14.5 K/uL (2.0-7.4) H Lymphocytes # (Auto) 1.5 K/uL (1.3-3.6) Monocytes # (Auto) 1.1 K/uL (0.3-1.0) H Eosinophils # (Auto) 0.0 K/uL (0.0-0.5) Basophils # (Auto) 0.0 K/uL (0.0-0.1) Nucleated RBC Absolute Count (auto) 0.00 K/uL Chemistry Test 06/26/19 11:09 Sodium Level 137 mmol/L (137-145) Potassium Level 3.6 mmol/L (3.5-5.0) Chloride Level 106 mmol/L (98-107) Carbon Dioxide Level 17 mmol/L (22-31) Blood Urea Nitrogen 4 mg/dl (7-18) Creatinine 0.50 mg/dl (0.52-1.04) Glomerular Filtration Rate Calc > 60.0 Random Glucose 107 mg/dl (75-110) Calcium Level 10.0 mg/dl (8.4-10.2) Total Bilirubin 0.3 mg/dl (0.2-1.3) Aspartate Amino Transf (AST/SGOT) 67 U/L (0-35) Alanine Aminotransferase (ALT/SGPT) 50 U/L (0-56) Alkaline Phosphatase 80 U/L (0-126) Total Protein 6.8 g/dl (6.3-8.2) Albumin 3.8 g/dl (3.5-5.0) Lipase 39 U/L (23-300) Serology Test 06/26/19 11:09 Helicobacter pylori IgG Antibody Negative (NEGATIVE) Urinalysis Test 06/26/19 09:43 Urine Color Emma Urine Clarity Slightly-cloudy Urine pH 5.0 pH (4.8-9.5) Urine Specific [place] 1.031 Urine Protein Negative mg/dL (NEGATIVE) Urine Glucose (UA) Negative mg/dL (NEGATIVE) Urine Ketones Trace mg/dL (NEGATIVE) Urine Blood Negative (NEGATIVE) Urine Nitrite Negative (NEGATIVE) Urine Bilirubin Negative (NEGATIVE) Urine Urobilinogen 2.0 mg/dL (0.2-1.9) Urine Leukocyte Esterase Negative (NEGATIVE) Urine RBC 1 /HPF (0-2/HPF) Urine WBC 1 /HPF (0-5/HPF) Urine Squamous Epithelial Cells Many /LPF (</=FEW) Urine Transitional Epithelial Cells Few /LPF (NONE-FEW) Urine Bacteria Negative /HPF (NONE-FEW) Urine Hyaline Casts Few /LPF (NONE-FEW) Urine Mucus Few /HPF (NONE-FEW) ED Course/Re-evaluation ED Course DIFFERENTIAL DIAGNOSIS: After history and physical exam differential diagnosis was considered for neuropathy secondary to multiple sclerosis, nephrolithiasis, herpes zoster, musculoskeletal pain from recent falls 06/26/2019 10:15:08 am Bladder scan showed post-void residual urine volume of 160 ml. Bedside ultrasound showed intrauterine with heart rate of 160 bpm. 06/26/2019 1:42:58 pm an elevated white blood cell count 17,000 this could be just from the steroids however. Patient has had no episodes of vomiting still states pain is they are comes in waves in terms of her abdominal pain. I did speak with our hospitalist about potentially admitting this patient for observation and worsening symptoms he had some concerns about if she may need additional treatment or neurology consult. I did speak with the neurologist at [facility] Dr. Clements as well as with Dr Patterson who is an MS specialist at [facility] in [place]; Both recommended 5 days of IV solumderol; then over the next two months 3 days in a row each month to help control sx. They did not feel exchange therapy would be required in this patient Decision to Disposition Date: Jun 26, 2019 Decision to Disposition Time: 13:57 Depart Departure Latest Vital Signs Impression: Primary Impression: Multiple sclerosis Additional Impression: Left sided abdominal pain Condition: Condition Unchanged Disposition: Admitted from ER (for observation to Dr Pickett) Referrals: ADÁN LOU (PCP) New Scripts Docusate Sodium (COLACE) 100 Mg Capsule 100 MG PO BID, #30 CAPSULE Prov: TYRONE GRIGGS 06/27/19 Polyethylene Glycol 3350 (MIRALAX) 17 Gm Powd.pack 17 GM PO QDAY, #10 PKT Prov: TYRONE GRIGGS 06/27/19 Acetaminophen (TYLENOL EXTRA STRENGTH) 500 Mg Tablet 1000 MG PO Q8H PRN for PAIN, #30 TAB Prov: TYRONE GRIGGS 06/27/19 Problem Qualifiers LEO FAYE MD Jun 26, 2019 09:41
[2019-06-26] MEDS ORDERED: methylPREDNIS SUC* 1000 MG/8ML 1,000 MG in NS(*) 0.9% 250 ML BAG 250 ML IVPB ONE (10:15)
[2019-06-26] MEDS ORDERED: ONDANSETRON 4 MG/2 ML VIAL IVP ONE (10:35)
[2019-06-26] MEDS ORDERED: NS(*) 0.9% 1000 ML BAG 1,000 ML IV ONE (10:35)
[2019-06-26 11:25] LABS: PLATELET COUNT, AUTOMATED 316 K/uL (150-450)
--- NOTE | 2019-06-26 11:38 | RADIOLOGY IMAGING REPORT ---
[place] [facility] [place] NAME: Kenneth Quiñonez : 1990 MR: [id number] V: [id number] EXAM DATE: ORDERING PHYSICIAN: LEO FAYE TECHNOLOGIST: Location: [facility] Patient: Kenneth Quiñonez : 1990 Visit/Account:[id number] Date of Sevice: 06/26/2019 EXAMINATION: Abdominal ultrasound complete HISTORY: Left upper quadrant pain and nausea since 8:00 PM COMPARISON: CT abdomen and pelvis December 23, 2018 FINDINGS: Gallbladder: No stones, wall thickening, pericholecystic fluid or sonographic Elise sign. Liver: Liver is mildly enlarged although discrete masses are not demonstrated Common duct: Normal measuring 3.6 mm. Pancreas: Negative. Spleen: Normal in size and echogenicity measuring 8.9 cm in length. Kidneys: There is malrotation of the right kidney as seen on recent CT scan, the right measures 7.3 cm in length, and the left 10.3 cm. No hydronephrosis. Upper abdominal aorta and IVC: Negative. Ascites: None. IMPRESSION: Mild hepatomegaly Malrotated right kidney Report Dictated By: Lynn Casiano MD at 06/26/2019 11:29 AM Report E-Signed By: Lynn Casiano MD at 06/26/2019 11:31 AM WSN:[id number]
[2019-06-26] MEDS ORDERED: MORPHINE 4 MG/ML SDV IVP ONE (11:55)
[2019-06-26] MEDS ORDERED: MORPHINE 2 MG/ML SYR IVP ONE (13:45)
[2019-06-26 14:40] VITALS: BP 112/93
[2019-06-26] MEDS ORDERED: hydrOXYzine PAMOATE 25 MG CAP PO PRN (15:50)
[2019-06-26] MEDS ORDERED: PREN-127 PO (15:58)
[2019-06-26] MEDS ORDERED: FLUSH 10 ML SYR IVP PRN (16:50)
--- NOTE | 2019-06-26 17:08 | History & Physical ---
History of Present Illness Chief Complaint R side heaviness History of Present Illness 29F 13 weeks gestation, presented with 3 days R side heaviness. PMHx significant for anxiety. Reports onset of R sided "numbness" 3 days ago. She later clarifies that the sensation is actually heaviness and her sensation appears intact. Reports she was dropping a pen while trying to write. On CT showed an abnormality and an MRI was recommended/performed to evaluate. Results show 10 lesions which are consistent in location and appearance for MS lesions. Patient denies any previous symptoms. She was started on 1g methylprednisolone for 5 days. She presented today to ER after having increased abdominal pain and was also very anxious about continued heaviness. Discussed with neurology and it was felt observation for any worsening of symptoms was appropriate. History Problems: (1) Anxiety Home Meds Active Scripts Ondansetron 4 Mg Odt (ONDANSETRON 4 MG ODT) 4 Mg Tab.rapdis, 4 MG PO Q6H PRN for NAUSEA/VOMITING, #20 TAB 0 Refills Prov:SUKI GORDON MD 06/14/19 Reported Medications Vits W-Ca,Fe,Fa(<1MG) ( VITAMINS) 1 Each Tablet, 1 EACH PO DAILY, TAB 06/26/19 Hydroxyzine Pamoate (HYDROXYZINE PAMOATE) 50 Mg Capsule, 50 MG PO PRN for Anxiety 05/08/19 Escitalopram Oxalate (LEXAPRO) 20 Mg Tablet, 10 MG PO QDAY, TAB 08/07/18 Discontinued Scripts Promethazine Hcl (PROMETHAZINE HCL) 25 Mg Tablet, 25 MG PO Q8H PRN for NAUSEA/VOMITING, #20 TAB 0 Refills Prov:SUKI GORDON MD 06/14/19 Allergies: Coded Allergies: oxycodone (Verified Adverse Reaction, Mild, NAUSEA/VOMITING, 06/26/19) Patient History: Lung cancer 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 Hx Smoking: No Smoking Status: Never Smoker Exposure to Second Hand Smoke?: No Hx Substance Use Disorder: No Review of Systems All Systems Reviewed/Normal: Yes, Except as Noted Constitutional: No Fever, No Chills, No Night Sweats Neurological: Weakness Eyes: No Vision Change, No Loss of Vision ENT: No Hearing Loss Exam Vital Signs Vital Signs Date Time Temp Pulse Resp B/P (MAP) Pulse Ox O2 Delivery O2 Flow Rate FiO2 06/26/19 14:17 99 89 06/26/19 14:00 124/81 (95) 06/26/19 09:44 97.8 16 Room Air General Appearance: Alert, Awake, No Acute Distress, Afebrile Neuro: No Gross deficits (CN 2-12 intact, sensation intact, 5/5 muscle strength over B/L UE and LE) Eyes: PERRLA (EOMI) Cardiovascular: Normal Rhythm & Peripheral Pulses Respiratory: No Respiratory Distress GI: Abd Soft and Non-Tender Musculoskeletal: No Weakness/Pain Extremities: Soft and Non Tender, Warm, Pulses, Perfused Medical Decision Making Data Points Result Diagram: 06/26/19 1109 06/26/19 1109 Assessment and Plan Problems: (1) Acute right-sided weakness Status: Acute Assessment & Plan: MRI findings raise concern for MS, lesions are distributed in space but not demonstrated to be distributed in time. Sensation of heaviness on R side, muscle strength objectively symmetric, sensation intact on PE. Continue 1g methylprednisolone. Numbness could last for weeks, weakness would not be expected to resolve rapidly either. HIV is negative per patient, HTLV, NMOSD would be considerations. She will need to follow up with neurology to further evaluate after discharge. Venous Thromboembolism Antithrombotics Is Pt On Any Antithrombotics?: No (early ambulation) Exam Sepsis Risk: No Definite Risk FRANCOIS ALAYNA NIETO DO Jun 26, 2019 17:08
[2019-06-26] MEDS: ACETAMINOPHEN 500 MG TAB PO PRN (17:36)
[2019-06-26 20:35] VITALS: BP 130/77
[2019-06-26] MEDS ORDERED: diphenhydrAMINE 50 MG/ML VIAL IVP ONE (21:10)
[2019-06-27 01:08] VITALS: BP 133/87
[2019-06-27 03:21] VITALS: BP 142/86
[2019-06-27] MEDS: ACETAMINOPHEN 500 MG TAB PO PRN ×2 (04:21→11:53)
[2019-06-27] MEDS ORDERED: KETOROLAC 15 MG/ML VIAL ONE (05:15)
[2019-06-27] MEDS: KETOROLAC 15 MG/ML VIAL IVP PRN ×2 (05:22→11:54)
[2019-06-27 08:28] VITALS: BP 124/63
[2019-06-27] MEDS ORDERED: ESCITALOPRAM OXALATE 10 MG TAB PO SCH (09:00)
[2019-06-27] MEDS ORDERED: methylPREDNIS SUC* 1000 MG/8ML 1,000 MG in NS(*) 0.9% 250 ML BAG 250 ML IV SCH (09:00)
[2019-06-27 10:45] VITALS: Ht 162.6 cm; Wt 94.0 kg
[2019-06-27 11:08] VITALS: BP 125/70
[2019-06-27] MEDS ORDERED: POLYETHYLENE GLYCOL 17 GM PKT PO ONE (13:00)
[2019-06-27] MEDS ORDERED: DOCUSATE SODIUM 100 MG CAP PO ONE (13:00)
[2019-06-27] MEDS ORDERED: ACET500T68 PO (13:04)
[2019-06-27] MEDS ORDERED: DOCU-416 PO (13:04)
[2019-06-27] MEDS ORDERED: POLY17PO25 PO (13:04)
--- NOTE | 2019-06-27 13:19 | Hospitalist Depart ---
Discharge Summary Reason for Hosp/Final Diag: (1) Acute right-sided weakness Status: Acute Hospital Course & Plan: MRI findings raise concern for MS, lesions are distributed in space but not demonstrated to be distributed in time. Sensation of heaviness on R side, muscle strength objectively symmetric, sensation intact on PE. Continue 1g methylprednisolone. Numbness could last for weeks, weakness would not be expected to resolve rapidly either. HIV is negative per patient, HTLV, NMOSD would be considerations. She will need to follow up with neurology to further evaluate after discharge. She is comfortable discharging and following up with Neurology concerning weakness symptoms in Right Arm and findings consistent with possible MS. (2) Left sided abdominal pain Status: Acute Hospital Course & Plan: She states that she has intermittent shooting left sided abdominal pain. Abdominal US did not show any obvious reason for pain. When questioned, she states she has not had a bowel movement in several days. She has been started on a bowel regimen. Pain managed inpatient with Toradol and Tylenol. I discussed home pain management with Tylenol 1gm Q8hr and bowel regimen. She states she is comfortable with this plan. Departure Weight (Pounds): 207 Weight (Ounces): 2.0 Result Diagram: 06/26/19 1109 06/26/19 1109 Condition: Improved Discharge: Home, Self Care Discharge Instructions Home Meds Active Scripts Docusate Sodium (COLACE) 100 Mg Capsule, 100 MG PO BID, #30 CAPSULE Prov:TYRONE GRIGGS 06/27/19 Polyethylene Glycol 3350 (MIRALAX) 17 Gm Powd.pack, 17 GM PO QDAY, #10 PKT Prov:TYRONE GRIGGS 06/27/19 Acetaminophen (TYLENOL EXTRA STRENGTH) 500 Mg Tablet, 1000 MG PO Q8H PRN for PAIN, #30 TAB Prov:TYRONE GRIGGS 06/27/19 Ondansetron 4 Mg Odt (ONDANSETRON 4 MG ODT) 4 Mg Tab.rapdis, 4 MG PO Q6H PRN for NAUSEA/VOMITING, #20 TAB 0 Refills Prov:SUKI GORDON MD 06/14/19 Reported Medications Vits W-Ca,Fe,Fa(<1MG) ( VITAMINS) 1 Each Tablet, 1 EACH PO DAILY, TAB 06/26/19 Hydroxyzine Pamoate (HYDROXYZINE PAMOATE) 50 Mg Capsule, 50 MG PO PRN for Anxiety 05/08/19 Escitalopram Oxalate (LEXAPRO) 20 Mg Tablet, 10 MG PO QDAY, TAB 08/07/18 Discontinued Scripts Promethazine Hcl (PROMETHAZINE HCL) 25 Mg Tablet, 25 MG PO Q8H PRN for NAUSEA/VOMITING, #20 TAB 0 Refills Prov:SUKI GORDON MD 06/14/19 Diet: Regular Special Instructions: [facility]19 for another infusion at 9:00am. Follow up with you DIRECTOR OF ASSESSING at your next scheduled appointment or sooner if needed. Follow up with a Neurologist in 1 month or sooner if possible for weakness symptoms and findings consistent with MS. Do not take any additional medications containing Tylenol. Take miralax and docusate sodium as directed until having regular bowel movements. May continue as prefered. Follow up with DIRECTOR OF ASSESSING for further treatment. Copies to: RAMIREZ PETERS MD ; Venous Thromboembolism Antithrombotics Is Pt On Any Antithrombotics?: No (early ambulation) TYRONE GRIGGS Jun 27, 2019 13:19
== END 2019-06-27 13:26 | disposition home or self-care (01) ==
LOC: ER 09:41 → MED 14:14 → INTOOBSV 14:14
PROVIDERS: ADMIT Internal Medicine; ATTEND Internal Medicine
DX: O26.891 Other specified pregnancy related conditions, first trimester (principal); O99.351 Diseases of the nervous system complicating pregnancy, first trimester; G35 Multiple sclerosis; R10.9 Unspecified abdominal pain; R53.1 Weakness; Z3A.13 13 weeks gestation of pregnancy
CPT/HCPCS: 36415; 76700; 81001; 83690; 85025; 86677; 96365; 96366; 96375; 96376; 99284; G0378; J1200; J1885; J2270; J2405; J2930; J7030; J7050; 82040; 82247; 82310; 82374; 82435; 82565; 82947; 84075; 84132; 84155; 84295; 84450; 84460; 84520

== ENCOUNTER 2019-07-06 20:37 | Emergency (ER) | payer MEDICAID ==
[2019-06-27 10:45] VITALS: Wt 94.9 kg
[~2019-07-06 20:37] MED LIST changes: +ACET500T68 PO; +DOCU-416 PO; +POLY17PO25 PO
--- NOTE | 2019-07-06 20:52 | ER Report ---
History and Physical Time Seen By MD: 20:48 HPI/ROS CHIEF COMPLAINT: Generalized pain and intermittent abdominal pain HISTORY OF PRESENT ILLNESS: This is a 29-year-old female who presents to the emergency department for generalized pain and intermittent abdominal pain. Patient is a , she is currently 12 and half weeks . She is a patient of Dr. Ludwig. She was recently diagnosed with MS. She was seen in the emergency department one week ago, for right sided numbness and tingling, she states this is resolving however about 3 days ago she began to have some generalized discomfort and intermittent left-sided abdominal pain. The pain does wrap around to her back. She denies fevers or chills. She has had intermittent nausea however this has been ongoing since her , she does take Zofran somewhat regularly. She denies chest pain or shortness of breath. No rashes. She became nervous and decided come in for evaluation. REVIEW OF SYSTEMS: Constitutional: No fever, no chills. Eyes: No discharge. ENT: No sore throat. Cardiovascular: No chest pain, no palpitations. Respiratory: No cough, no shortness of breath. Gastrointestinal: As above. HOME HEALTH CAREGIVER: As above. Genitourinary: No hematuria. Musculoskeletal: No back pain. Skin: No rashes. Neurological: As above. Allergies: Coded Allergies: oxycodone (Verified Adverse Reaction, Mild, NAUSEA/VOMITING, 06/26/19) Home Meds Active Scripts Hydrocodone Bit/Acetaminophen (NORCO 5-325 TABLET) 1 Each Tablet, 1 EACH PO Q4-6 H PRN for PAIN, #6 TAB 0 Refills Prov:ORALIA SINGHP- 07/06/19 Cephalexin 500 Mg Tab (KEFLEX 500 MG TAB) 500 Mg Tablet, 500 MG PO BID for 3 Days, #6 TAB 0 Refills Prov:ORALIA SINGHP-BC 07/06/19 Docusate Sodium (COLACE) 100 Mg Capsule, 100 MG PO BID, #30 CAPSULE Prov:TYRONE GRIGGS 06/27/19 Polyethylene Glycol 3350 (MIRALAX) 17 Gm Powd.pack, 17 GM PO QDAY, #10 PKT Prov:TYRONE GRIGGS 06/27/19 Acetaminophen (TYLENOL EXTRA STRENGTH) 500 Mg Tablet, 1000 MG PO Q8H PRN for PAIN, #30 TAB Prov:LAMONTEGERTRUDETYRONE Nick 06/27/19 Ondansetron 4 Mg Odt (ONDANSETRON 4 MG ODT) 4 Mg Tab.rapdis, 4 MG PO Q6H PRN for NAUSEA/VOMITING, #20 TAB 0 Refills Prov:SUKI GORDON MD 06/14/19 Reported Medications Vits W-Ca,Fe,Fa(<1MG) ( VITAMINS) 1 Each Tablet, 1 EACH PO DAILY, TAB 06/26/19 Hydroxyzine Pamoate (HYDROXYZINE PAMOATE) 50 Mg Capsule, 50 MG PO PRN for Anxiety 05/08/19 Escitalopram Oxalate (LEXAPRO) 20 Mg Tablet, 10 MG PO QDAY, TAB 08/07/18 Past Medical/Surgical History Patient has a past medical and surgical history of recent diagnosis of MS, , urinary infection after 2nd , left ankle surgery, depression, anxiety, urinary tract infection. Reviewed Nurses Notes: Yes Hx Smoking: No Smoking Status: Never Smoker Exposure to Second Hand Smoke?: No Hx Substance Use Disorder: No Constitutional Vital Sign - Last 24 Hours 07/06/19 07/06/19 07/06/19 07/06/19 20:45 20:48 21:00 21:15 Temp 98.2 Pulse 110 106 Resp 18 B/P (MAP) 125/87 (100) 125/87 108/74 (85) Pulse Ox 93 90 O2 Delivery Room Air 07/06/19 07/06/19 21:30 21:45 Pulse 104 B/P (MAP) 124/74 (91) Pulse Ox 90 Intake and Output 07/06/19 07/06/19 07/07/19 15:03 23:03 07:03 Intake Total 1000 ml Balance 1000 ml Physical Exam General Appearance: The patient is alert, has no immediate need for airway protection and no signs of toxicity. Eyes: Pupils equal and round no pallor or injection. ENT, Mouth: Mucous membranes are moist. Respiratory: There are no retractions, lungs are clear to auscultation. Cardiovascular: Regular rate and rhythm. No murmurs, clicks or rubs. Gastrointestinal: Abdomen is round, soft and non tender, no masses, bowel sounds normal. Neurological: Alert and oriented 4. Moving all extremities. Following all commands. No focal neurodeficits per Skin: Warm and dry, no rashes. Musculoskeletal: Neck is supple non tender. Extremities are nontender, nonswollen and have full range of motion. DIFFERENTIAL DIAGNOSIS: After history and physical exam differential diagnosis was considered for urinary tract infection, miscarriage, demise, gastroenteritis, exacerbation of MS. Medical Decision Making Data Points Result Diagram: 07/06/19203907/06/192039 Laboratory Hematology Test 07/06/19 20:40 White Blood Count 14.9 k/uL (4.5-11.0) H Red Blood Count 3.97 M/uL (4.17-5.56) L Hemoglobin 12.6 g/dL (12.0-16.0) Hematocrit 37.0 % (34.0-47.0) Mean Corpuscular Volume 93.2 fL (80.0-96.0) Mean Corpuscular Hemoglobin 31.6 pg (26.0-33.0) Mean Corpuscular Hemoglobin Concent 33.9 g/dL (32.0-36.0) Red Cell Distribution Width 15.0 % (11.5-14.5) H Platelet Count 263 K/uL (150-450) Mean Platelet Volume 9.1 fL (7.2-11.1) Neutrophils (%) (Auto) 72.4 % (39.4-72.5) Lymphocytes (%) (Auto) 17.1 % (17.6-49.6) L Monocytes (%) (Auto) 9.2 % (4.1-12.4) Eosinophils (%) (Auto) 0.7 % (0.4-6.7) Basophils (%) (Auto) 0.6 % (0.3-1.4) Nucleated RBC Relative Count (auto) 0.0 /100WBC Neutrophils # (Auto) 10.8 K/uL (2.0-7.4) H Lymphocytes # (Auto) 2.6 K/uL (1.3-3.6) Monocytes # (Auto) 1.4 K/uL (0.3-1.0) H Eosinophils # (Auto) 0.1 K/uL (0.0-0.5) Basophils # (Auto) 0.1 K/uL (0.0-0.1) Nucleated RBC Absolute Count (auto) 0.00 K/uL Chemistry Test 07/06/19 20:40 Sodium Level 135 mmol/L (137-145) Potassium Level 4.0 mmol/L (3.5-5.0) Chloride Level 102 mmol/L (98-107) Carbon Dioxide Level 21 mmol/L (22-31) Blood Urea Nitrogen 11 mg/dl (7-18) Creatinine 0.60 mg/dl (0.52-1.04) Glomerular Filtration Rate Calc > 60.0 Random Glucose 130 mg/dl (75-110) Calcium Level 9.9 mg/dl (8.4-10.2) Total Bilirubin 0.4 mg/dl (0.2-1.3) Aspartate Amino Transf (AST/SGOT) 24 U/L (0-35) Alanine Aminotransferase (ALT/SGPT) 15 U/L (0-56) Alkaline Phosphatase 85 U/L (0-126) Total Protein 7.1 g/dl (6.3-8.2) Albumin 3.8 g/dl (3.5-5.0) Urinalysis Test 07/06/19 20:40 Urine Color Yellow Urine Clarity Cloudy Urine pH 6.0 pH (4.8-9.5) Urine Specific [place] 1.025 Urine Protein Trace mg/dL (NEGATIVE) Urine Glucose (UA) Negative mg/dL (NEGATIVE) Urine Ketones Negative mg/dL (NEGATIVE) Urine Blood Small (NEGATIVE) Urine Nitrite Negative (NEGATIVE) Urine Bilirubin Small (NEGATIVE) Urine Urobilinogen 0.2 mg/dL (0.2-1.9) Urine Leukocyte Esterase Moderate (NEGATIVE) Urine RBC 9 /HPF (0-2/HPF) Urine WBC 27 /HPF (0-5/HPF) Urine Squamous Epithelial Cells Many /LPF (</=FEW) Urine Amorphous Crystals Few /LPF Urine Bacteria Few /HPF (NONE-FEW) Urine Hyaline Casts Moderate /LPF (NONE-FEW) Urine Mucus Few /HPF (NONE-FEW) ED Course/Re-evaluation Clinical Indication for ER IV: Hydration, IV Access ED Course The patient was admitted to room. A history and physical obtained. Differential diagnoses were considered. An IV was started. A CBC, CMP, UA were collected. A 1 L normal saline bolus was given.CBC showing white count of 14.9, no left shift, sodium 135, glucose 1:30, UA with specific gravity 1.025, proteinuria, small blood, small bilirubin, 37 urine white blood cells. Patient was given 1 g of Tylenol in the ER. I did speak with Dr. Peters the patient's HOME HEALTH CAREGIVER is no blow, we will start the patient on antibiotics in the emergency department, follow-up with HOME HEALTH CAREGIVER tomorrow for reevaluation, the patient will return to ER for any concerns or worsening symptoms. She has had no vaginal discharge or vaginal cramping or spotting. She states that she is very concerned with her recent diagnosis of MS. I did tell the patient that the urinary tract infection is likely the source of her discomfort, she is feeling somewhat better after the fluids, she was also given a take-home pack for Keflex and hydrocodone, she was also given a prescription for hydrocodone and Keflex. Patient was agreeable to this plan of care and discharged home. heart tones strong at 164. 07/06/2019 10:05:[address] Peters, the patient's HOME HEALTH CAREGIVER, we did review the patient's information, he felt the patient would be able to go home at this time, we'll treat her urinary tract infection outpatient, I will also have her follow up with his clinic tomorrow for reevaluation. She'll be started on cephalexin in the emergency department, I'm also sending her home with hydrocodone. Decision to Disposition Date: Jul 06, 2019 Decision to Disposition Time: 22:06 Depart Departure Latest Vital Signs Vital Signs Date Time Temp Pulse Resp B/P (MAP) Pulse Ox O2 Delivery O2 Flow Rate FiO2 07/06/19 21:45 104 90 07/06/19 21:30 124/74 (91) 07/06/19 20:48 98.2 18 Room Air Impression: Primary Impression: Urinary tract infection Additional Impressions: Multiple sclerosis Condition: Improved Disposition: HOME OR SELF-CARE Referrals: ADÁN LOU (PCP) RAMIREZ PETERS MD 1 Day New Scripts Hydrocodone Bit/Acetaminophen (NORCO 5-325 TABLET) 1 Each Tablet 1 EACH PO Q4-6H PRN for PAIN, #6 TAB 0 Refills Prov: ORALIA SINGH [employer]-BC 07/06/19 Cephalexin 500 Mg Tab (KEFLEX 500 MG TAB) 500 Mg Tablet 500 MG PO BID for 3 Days, #6 TAB 0 Refills Prov: ORALIA SINGH 07/06/19 Patient Instructions: Urinary Tract Infection in (ED) Additional Instructions: You have a urinary tract infection, this is likely the source of your pain, please take the cephalexin as prescribed. For moderate pain you can take Tylenol. For severe pain can take hydrocodone. Please call Dr. Peters's office tomorrow morning for a follow-up with either he or one of the partners. Be sure to drink plenty of water. Get plenty of rest. Return to the ER for any concerns or worsening symptoms. Problem Qualifiers Primary Impression: Urinary tract infection Urinary tract infection type: acute cystitis Hematuria presence: with hematuria Qualified Codes: N30.01 - Acute cystitis with hematuria Additional Impressions: Weeks of gestation: 13 weeks Qualified Codes: Z3A.13 - 13 weeks gestation of ORALIA SINGH-BC Jul 06, 2019 20:52
[2019-07-06] MEDS ORDERED: NS(*) 0.9% 1000 ML BAG 1,000 ML IV ONE (21:06)
[2019-07-06] MEDS ORDERED: ONDANSETRON 4 MG/2 ML VIAL IVP ONE (21:10)
[2019-07-06 21:20] LABS: PLATELET COUNT, AUTOMATED 263 K/uL (150-450)
[2019-07-06 21:30] VITALS: BP 124/74
[2019-07-06] MEDS ORDERED: ACETAMINOPHEN 500 MG TAB PO ONE (21:45)
[2019-07-06] MEDS ORDERED: CEPHALEXIN 500 MG CAP TH 2 CAP/BOTTLE PO ONE (22:05)
[2019-07-06] MEDS ORDERED: ACET/HYDROC 5/325MG TH ER ONLY 2 TAB/BOTTLE PO ONE (22:05)
[2019-07-06] MEDS ORDERED: CEPH500T7 PO (22:16)
[2019-07-06] MEDS ORDERED: HYDR-653 PO (22:16)
== END 2019-07-06 22:27 | disposition home or self-care (01) ==
LOC: ER 20:46
DX: O23.41 Unspecified infection of urinary tract in pregnancy, first trimester (principal); Z3A.12 12 weeks gestation of pregnancy
CPT/HCPCS: 81001; 85025; 96361; 96374; 99284; J2405; J7030; 82040; 82247; 82310; 82374; 82435; 82565; 82947; 84075; 84132; 84155; 84295; 84450; 84460; 84520